=== PATIENT | male | born 1940 | race Caucasian/White ===

== ENCOUNTER 2018-10-14 10:57 | Inpatient (IN) | payer MEDICARE, MEDICAID ==
[~2018-10-14] VITALS: Ht 172.7 cm; Wt 57.7 kg
[2018-10-14] MEDS ORDERED: HYDR-4075 GT (11:27)
[2018-10-14] MEDS ORDERED: DOCU-141 GT (11:27)
[2018-10-14] MEDS ORDERED: TRAM50TA2 GT (11:27)
[2018-10-14] MEDS ORDERED: ATOR10TA GT (11:27)
[2018-10-14] MEDS ORDERED: PANT40TA4 GT (11:27)
[2018-10-14] MEDS ORDERED: FERR325T28 GT (11:27)
[2018-10-14] MEDS ORDERED: ALBU2.5V38 IH (11:27)
[2018-10-14] MEDS ORDERED: ASCO500T10 GT (11:27)
[2018-10-14] MEDS ORDERED: COLL30OI TOP (11:27)
[2018-10-14] MEDS ORDERED: IPRA0.2S48 IH (11:27)
[2018-10-14] MEDS ORDERED: METO-356 GT (11:27)
[2018-10-14] MEDS ORDERED: AMIO200T4 GT (11:27)
[2018-10-14] MEDS ORDERED: ZINC220C8 GT (11:27)
[2018-10-14] MEDS ORDERED: SIME80TA15 GT (11:27)
[2018-10-14] MEDS ORDERED: TAMS-3 GT (11:27)
[2018-10-14] MEDS ORDERED: BISA10SU8 RC (11:27)
[2018-10-14] MEDS ORDERED: PROT946L GT (11:27)
[2018-10-14] MEDS ORDERED: ACET-2154 GT (11:27)
[2018-10-14] MEDS ORDERED: ONDA4TAB5 GT (11:27)
[2018-10-14] MEDS ORDERED: SILVADENE CREAM 1% TOP (11:27)
[2018-10-14] MEDS ORDERED: DICL100G16 TP (11:27)
[2018-10-14] MEDS ORDERED: MULT-213 GT (11:27)
[2018-10-14] MEDS ORDERED: FURO20TA4 PO (11:27)
[2018-10-14] MEDS ORDERED: FINA5TAB3 GT (11:27)
[2018-10-14] MEDS ORDERED: LINA5TAB GT (11:27)
[2018-10-14 11:42] LABS: BASOPHILS # (AUTO) 0.1 K/uL (0.0-8.0); EOSINOPHILS # (AUTO) 0.7 K/uL (0.0-0.7); EOSINOPHILS % (AUTO) 6.4 % (0.0-7.0); HEMATOCRIT 24.9 % (36.7-47.1); HEMOGLOBIN 8.2 g/dL (12.5-16.3); LYMPHOCYTES # (AUTO) 1.6 K/uL (20.0-40.0); LYMPHOCYTES % (AUTO) 13.8 % (20.5-51.5); MEAN CORPUSCULAR HEMOGLOBIN 27.3 uug (23.8-33.4); MEAN CORPUSCULAR HGB CONC 33 g/dL (32.5-36.3); MEAN CORPUSCULAR VOLUME 82.6 fL (73.0-96.2); MONOCYTES # (AUTO) 1.2 K/uL (2.0-10.0); MONOCYTES % (AUTO) 10.2 % (0.0-11.0); NEUTROPHILS # (AUTO) 7.8 K/uL (1.8-8.9); NEUTROPHILS % (AUTO) 68.6 % (38.5-71.5); PLATELET COUNT (AUTO) 505 K/uL (152-348); RED BLOOD CELL COUNT(AUTO) 3.01 MIL/uL (4.06-5.63); WHITE BLOOD COUNT (AUTO) 11.4 K/uL (3.6-10.2)
[2018-10-14 11:52] LABS: CARBON DIOXIDE 32 mmol/L (21-32); CHLORIDE 92 mmol/L (98-107); CREATININE 1.2 mg/dL (0.6-1.3); GLUCOSE 135 mg/dL (74-106); POTASSIUM 4.2 mmol/L (3.5-5.1); UREA NITROGEN, BLOOD 47 mg/dL (7-18)
[2018-10-14 11:59] LABS: *BILIRUBIN,URIN NEGATIVE (NEGATIVE); *BLOOD, URINE 2+ (NEGATIVE); *CLARITY,URINE CLEAR (CLEAR); *COLOR,URINE YELLOW (YELLOW); *KETONES,URINE NEGATIVE (NEGATIVE); *UROBILINOGEN,URINE 0.2 E.U./dl (NORMAL); LEUKOCYTE ESTERASE ,URINE 1+ (NEGATIVE); NITRITE, URINE NEGATIVE (NEGATIVE); PH,URINE 6.5 (5.0-8.0); UGLUCOSE NEGATIVE (NEGATIVE)
[2018-10-14 12:05] LABS: ALANINE AMINOTRANSFERASE 27 U/L (16-63); ALKALINE PHOSPHATASE 133 U/L (50-136); ASPARTATE AMINOTRANSFERASE 34 U/L (15-37); BILIRUBIN,DIRECT 0.2 mg/dL (0.0-0.2); BILIRUBIN,TOTAL 0.3 mg/dL (0.2-1.0); TOTAL PROTEIN, SERUM 8.5 g/dL (6.4-8.2)
[2018-10-14 12:11] LABS: RBC,URINE 20-50 /HPF (0-3)
[2018-10-14 12:12] LABS: BACTERIA,URINE MOD /HPF (NONE SEEN)
[2018-10-14] MEDS ORDERED: PIPERACILLIN SODIUM/TAZOBACTAM 3.375 G in IV DEXTROSE 5% 50 ML IV ONE (12:15)
[2018-10-14] MEDS ORDERED: PIPERACILLIN/TAZOBACTAM/D5W 50 ML IV ONE (12:21)
[2018-10-14] MEDS ORDERED: Z GUARD REMEDY PASTE 57 GM TUBE TOP PRN (13:15)
[2018-10-14] MEDS ORDERED: MAGNESIUM HYDROXIDE 30 ML LIQUID UDC PO PRN (13:15)
[2018-10-14 14:27] LABS: MAGNESIUM 1.7 mg/dL (1.8-2.4); PHOSPHOROUS 4.2 mg/dL (2.5-4.9)
[2018-10-14 15:28] VITALS: BP 97/55
[2018-10-14] MEDS: ONDANSETRON 4 MG/2 ML VIAL IV PRN (17:30)
[2018-10-14 19:21] VITALS: BP 83/45
[2018-10-14] MEDS ORDERED: VANCOMYCIN IV 1 G in PREMIXED 0 EACH IV ONE (19:30)
[2018-10-14 20:00] VITALS: BP 83/45
[2018-10-14] MEDS ORDERED: IV NORMAL SALINE 250 ML IV ONE (20:00)
[2018-10-14] MEDS: IV NS 1000 ML 1,000 ML IV PRN (20:27)
[2018-10-14 21:00] VITALS: BP 97/50
[2018-10-14] MEDS ORDERED: CEFTRIAXONE 2 G in IV DEXTROSE 5% 100 ML IV SCH (21:00)
[2018-10-14 23:25] VITALS: BP 90/45
[2018-10-15] VITALS (8 sets, daily range): BP systolic 90–110; BP diastolic 45–59
[2018-10-15] MEDS ORDERED: Z GUARD REMEDY PASTE 57 GM TUBE TOP PRN (02:30)
[2018-10-15] MEDS ORDERED: DEXTROSE 50% 50 ML DISP.SYRIN IV PRN (03:00)
[2018-10-15] MEDS: BLOOD SUGAR DIAGNOSTIC 1 EACH STRIP VI SCH ×3 (06:23→17:22)
[2018-10-15] MEDS: INSULIN REGULAR, HUMAN 300 UNIT/3 ML VIAL SQ PRN (06:25)
[2018-10-15 06:34] LABS: BASOPHILS # (AUTO) 0.1 K/uL (0.0-8.0); BASOPHILS % (AUTO) 0.6 % (0.0-2.0); EOSINOPHILS # (AUTO) 0.4 K/uL (0.0-0.7); EOSINOPHILS % (AUTO) 1.8 % (0.0-7.0); HEMOGLOBIN 9.1 g/dL (12.5-16.3); LYMPHOCYTES # (AUTO) 0.5 K/uL (20.0-40.0); LYMPHOCYTES % (AUTO) 2.6 % (20.5-51.5); MEAN CORPUSCULAR HEMOGLOBIN 27.1 uug (23.8-33.4); MEAN CORPUSCULAR HGB CONC 33 g/dL (32.5-36.3); MEAN CORPUSCULAR VOLUME 83.4 fL (73.0-96.2); MONOCYTES # (AUTO) 0.9 K/uL (2.0-10.0); MONOCYTES % (AUTO) 4.6 % (0.0-11.0); NEUTROPHILS # (AUTO) 18.2 K/uL (1.8-8.9); NEUTROPHILS % (AUTO) 90.4 % (38.5-71.5); PLATELET COUNT (AUTO) 472 K/uL (152-348); RED BLOOD CELL COUNT(AUTO) 3.36 MIL/uL (4.06-5.63); WHITE BLOOD COUNT (AUTO) 20.1 K/uL (3.6-10.2)
[2018-10-15 07:25] LABS: CARBON DIOXIDE 29 mmol/L (21-32); CHLORIDE 95 mmol/L (98-107); CHOLESTEROL 81 mg/dL (<200); CREATININE 1.5 mg/dL (0.6-1.3); GLUCOSE 135 mg/dL (74-106); HDL CHOLESTEROL 32 mg/dL (40-60); MAGNESIUM 1.9 mg/dL (1.8-2.4); POTASSIUM 4.4 mmol/L (3.5-5.1); TRIGLYCERIDES 42 MG/DL (30-150); UREA NITROGEN, BLOOD 52 mg/dL (7-18)
[2018-10-15] MEDS: PANTOPRAZOLE SODIUM 40 MG VIAL IV SCH (08:20)
[2018-10-15] MEDS: Z GUARD REMEDY PASTE 57 GM TUBE TOP SCH ×2 (08:31→20:13)
[2018-10-15 09:45] LABS: BAND % (MANUAL) 9 % (0-10); LYMPHOCYTES % (MANUAL) 3 % (20-40); NEUTROPHILS % (MANUAL) 76 % (42-75)
[2018-10-15 09:46] LABS: EOSINOPHILS % (MANUAL) 1 % (0-8); METAMYELOCYTES % 2 % (0-1); MONOCYTES % (MANUAL) 9 % (2-10)
[2018-10-15] MEDS: ACETAMINOPHEN 325 MG TABLET PO PRN ×2 (11:31→19:35)
[2018-10-15] MEDS: PIPERACILLIN/TAZOBACTAM/D5W 3.375 G in PREMIXED 1 EACH IV SCH ×2 (13:30→22:39)
[2018-10-15] MEDS: IV NS 1000 ML 1,000 ML IV PRN (13:31)
[2018-10-15] MEDS ORDERED: VANCOMYCIN IV 750 MG in IV DEXTROSE 5% 250 ML IV ONE ×4 (17:00)
[2018-10-15] MEDS: NYSTATIN SUSPENSION 5 ML LIQUID UDC PO SCH ×2 (17:16→20:13)
[2018-10-15] MEDS: SODIUM HYPOCHLORITE 0.125% 473 ML BOTTLE TP SCH (17:17)
[2018-10-15] MEDS ORDERED: VANCOMYCIN IV 750 MG in IV DEXTROSE 5% 250 ML IV SCH (19:00)
[2018-10-16] MEDS: BLOOD SUGAR DIAGNOSTIC 1 EACH STRIP VI SCH ×5 (00:12→23:24)
[2018-10-16 03:26] VITALS: BP 107/50
[2018-10-16] MEDS: ACETAMINOPHEN 325 MG TABLET PO PRN ×2 (03:38→09:18)
[2018-10-16] MEDS: PIPERACILLIN/TAZOBACTAM/D5W 3.375 G in PREMIXED 1 EACH IV SCH ×3 (05:35→21:20)
[2018-10-16] MEDS: IV NS 1000 ML 1,000 ML IV PRN ×2 (06:25→23:49)
[2018-10-16 08:00] VITALS: BP 96/52
[2018-10-16] MEDS: NYSTATIN SUSPENSION 5 ML LIQUID UDC PO SCH ×4 (08:22→20:47)
[2018-10-16] MEDS: PANTOPRAZOLE SODIUM 40 MG VIAL IV SCH (08:22)
[2018-10-16] MEDS: Z GUARD REMEDY PASTE 57 GM TUBE TOP SCH ×2 (08:23→20:47)
[2018-10-16] MEDS: SODIUM HYPOCHLORITE 0.125% 473 ML BOTTLE TP SCH (08:23)
[2018-10-16 10:32] LABS: BASOPHILS # (AUTO) 0.1 K/uL (0.0-8.0); BASOPHILS % (AUTO) 0.4 % (0.0-2.0); EOSINOPHILS # (AUTO) 1.7 K/uL (0.0-0.7); EOSINOPHILS % (AUTO) 13.8 % (0.0-7.0); HEMATOCRIT 24.1 % (36.7-47.1); LYMPHOCYTES # (AUTO) 0.4 K/uL (20.0-40.0); LYMPHOCYTES % (AUTO) 3.6 % (20.5-51.5); MEAN CORPUSCULAR HEMOGLOBIN 27.8 uug (23.8-33.4); MEAN CORPUSCULAR HGB CONC 33 g/dL (32.5-36.3); MEAN CORPUSCULAR VOLUME 83.3 fL (73.0-96.2); MONOCYTES # (AUTO) 0.5 K/uL (2.0-10.0); MONOCYTES % (AUTO) 3.9 % (0.0-11.0); NEUTROPHILS # (AUTO) 9.6 K/uL (1.8-8.9); NEUTROPHILS % (AUTO) 78.3 % (38.5-71.5); PLATELET COUNT (AUTO) 360 K/uL (152-348); RED BLOOD CELL COUNT(AUTO) 2.89 MIL/uL (4.06-5.63); WHITE BLOOD COUNT (AUTO) 12.2 K/uL (3.6-10.2)
[2018-10-16 10:49] LABS: ALANINE AMINOTRANSFERASE 22 U/L (16-63); ALKALINE PHOSPHATASE 111 U/L (50-136); ASPARTATE AMINOTRANSFERASE 36 U/L (15-37); BILIRUBIN,TOTAL 0.4 mg/dL (0.2-1.0); CARBON DIOXIDE 27 mmol/L (21-32); CHLORIDE 100 mmol/L (98-107); CREATININE 1.2 mg/dL (0.6-1.3); GLUCOSE 62 mg/dL (74-106); MAGNESIUM 1.7 mg/dL (1.8-2.4); PHOSPHOROUS 3.5 mg/dL (2.5-4.9); POTASSIUM 3.4 mmol/L (3.5-5.1); TOTAL PROTEIN, SERUM 7.2 g/dL (6.4-8.2); UREA NITROGEN, BLOOD 38 mg/dL (7-18)
[2018-10-16 11:20] VITALS: BP 91/45
[2018-10-16 11:43] LABS: *BILIRUBIN,URIN NEGATIVE (NEGATIVE); *BLOOD, URINE 2+ (NEGATIVE); *CLARITY,URINE CLEAR (CLEAR); *COLOR,URINE YELLOW (YELLOW); *KETONES,URINE TRACE (NEGATIVE); *UROBILINOGEN,URINE 0.2 E.U./dl (NORMAL); LEUKOCYTE ESTERASE ,URINE 1+ (NEGATIVE); NITRITE, URINE POSITIVE (NEGATIVE); UGLUCOSE NEGATIVE (NEGATIVE)
[2018-10-16 11:50] LABS: BACTERIA,URINE MODERATE /HPF (NONE SEEN); SQUAMOUS EPITHELIAL CELL,UR FEW /HPF (NONE SEEN); WBC,URINE 20-50 /HPF (0-3)
[2018-10-16 11:51] LABS: *URINE TOTAL PROTEIN RANDOM 38.7 mg/dL (<150/24HR)
[2018-10-16] MEDS ORDERED: BISACODYL 10 MG SUPP.RECT RC PRN (15:00)
[2018-10-16] MEDS: MAGNESIUM SULFATE/D5W 100 ML IV SCH ×2 (15:11→16:15)
[2018-10-16] MEDS: POTASSIUM CHLORIDE 50 ML IV SCH ×4 (15:11→18:25)
[2018-10-16 15:19] VITALS: BP 92/50
[2018-10-16] MEDS: TRAMADOL HCL 50 MG TABLET GT PRN ×2 (15:29→21:50)
[2018-10-16] MEDS: SIMETHICONE 80 MG TAB.CHEW GT SCH ×2 (17:42→20:47)
[2018-10-16 19:00] VITALS: BP 93/50
[2018-10-16] MEDS: ATORVASTATIN 10 MG TABLET GT SCH (20:47)
[2018-10-16] MEDS ORDERED: COLLAGENASE OINT 30 GM TUBE TOP SCH (21:00)
[2018-10-16] MEDS: IPRATROPIUM BROMIDE 0.5 MG/2.5 ML NEBU IH SCH (22:44)
[2018-10-16] MEDS: ALBUTEROL SULFATE 2.5 MG/3 ML NEBU IH SCH (22:44)
[2018-10-17] VITALS: BP 89/44
[2018-10-17 00:30] VITALS: BP 106/57
[2018-10-17 04:00] VITALS: BP 89/47
[2018-10-17] MEDS: PIPERACILLIN/TAZOBACTAM/D5W 3.375 G in PREMIXED 1 EACH IV SCH ×3 (05:23→21:12)
[2018-10-17] MEDS: BLOOD SUGAR DIAGNOSTIC 1 EACH STRIP VI SCH ×3 (05:27→18:37)
[2018-10-17] MEDS: INSULIN REGULAR, HUMAN 300 UNIT/3 ML VIAL SQ PRN (05:28)
[2018-10-17 06:26] LABS: ALANINE AMINOTRANSFERASE 19 U/L (16-63); ALKALINE PHOSPHATASE 103 U/L (50-136); ASPARTATE AMINOTRANSFERASE 28 U/L (15-37); BILIRUBIN,TOTAL 0.3 mg/dL (0.2-1.0); CARBON DIOXIDE 27 mmol/L (21-32); CHLORIDE 104 mmol/L (98-107); CREATINE KINASE, TOTAL 28 U/L (39-308); CREATININE 1.1 mg/dL (0.6-1.3); GLUCOSE 132 mg/dL (74-106); MAGNESIUM 1.9 mg/dL (1.8-2.4); PHOSPHOROUS 2.5 mg/dL (2.5-4.9); TOTAL PROTEIN, SERUM 6.6 g/dL (6.4-8.2); UREA NITROGEN, BLOOD 31 mg/dL (7-18)
[2018-10-17 06:55] LABS: BASOPHILS % (AUTO) 0.4 % (0.0-2.0); EOSINOPHILS % (AUTO) 23.1 % (0.0-7.0); HEMATOCRIT 23.5 % (36.7-47.1); HEMOGLOBIN 7.9 g/dL (12.5-16.3); LYMPHOCYTES # (AUTO) 0.6 K/uL (20.0-40.0); LYMPHOCYTES % (AUTO) 6.3 % (20.5-51.5); MEAN CORPUSCULAR HEMOGLOBIN 28.6 uug (23.8-33.4); MEAN CORPUSCULAR HGB CONC 34 g/dL (32.5-36.3); MEAN CORPUSCULAR VOLUME 84.6 fL (73.0-96.2); MONOCYTES # (AUTO) 0.4 K/uL (2.0-10.0); MONOCYTES % (AUTO) 4.5 % (0.0-11.0); NEUTROPHILS # (AUTO) 5.7 K/uL (1.8-8.9); NEUTROPHILS % (AUTO) 65.7 % (38.5-71.5); PLATELET COUNT (AUTO) 345 K/uL (152-348); RED BLOOD CELL COUNT(AUTO) 2.77 MIL/uL (4.06-5.63)
[2018-10-17 06:56] LABS: WHITE BLOOD COUNT (AUTO) 8.7 K/uL (3.6-10.2)
[2018-10-17] MEDS: ALBUTEROL SULFATE 2.5 MG/3 ML NEBU IH SCH ×3 (08:14→23:41)
[2018-10-17] MEDS: IPRATROPIUM BROMIDE 0.5 MG/2.5 ML NEBU IH SCH ×3 (08:15→23:41)
[2018-10-17] MEDS ORDERED: Medication Not On Formulary EA (Multivitamins W-Minerals (Multivitamin With Minerals) 1 GT SCH (09:00)
[2018-10-17] MEDS ORDERED: Medication Not On Formulary EA (Protein Supplement (Promod) 30 ML) GT SCH (09:00)
[2018-10-17 09:07] LABS: BAND % (MANUAL) 2 % (0-10); BASOPHILS % (MANUAL) 1 % (0-2); EOSINOPHILS % (MANUAL) 24 % (0-8); LYMPHOCYTES % (MANUAL) 4 % (20-40); NEUTROPHILS % (MANUAL) 69 % (42-75)
[2018-10-17] MEDS: NYSTATIN SUSPENSION 5 ML LIQUID UDC PO SCH ×4 (09:20→21:12)
[2018-10-17] MEDS: PANTOPRAZOLE SODIUM 40 MG VIAL IV SCH (09:20)
[2018-10-17] MEDS: PROTEIN SUPPLEMENT (PROSTAT) 30 ML LIQUID PO SCH (09:20)
[2018-10-17] MEDS: ZINC SULFATE 220 MG CAPSULE GT SCH (09:21)
[2018-10-17] MEDS: TRAMADOL HCL 50 MG TABLET GT PRN ×2 (09:21→15:38)
[2018-10-17] MEDS: ASCORBIC ACID 500 MG TABLET GT SCH (09:22)
[2018-10-17] MEDS: MULTIVIT, IRON, MIN NO. 8, FA TABLET PO SCH (09:22)
[2018-10-17] MEDS: SIMETHICONE 80 MG TAB.CHEW GT SCH ×4 (09:22→21:13)
[2018-10-17] MEDS: FINASTERIDE 5 MG TABLET GT SCH (09:24)
[2018-10-17] MEDS: AMIODARONE HCL 200 MG TABLET GT SCH (09:24)
[2018-10-17] MEDS: SODIUM HYPOCHLORITE 0.125% 473 ML BOTTLE TP SCH (09:28)
[2018-10-17] MEDS: Z GUARD REMEDY PASTE 57 GM TUBE TOP SCH ×2 (09:28→21:19)
[2018-10-17] MEDS: ONDANSETRON 4 MG/2 ML VIAL IV PRN (09:43)
[2018-10-17] MEDS: GLUCERNA 1.2 1000ML LIQUID GT PRN (09:50)
[2018-10-17] MEDS: ACETAMINOPHEN 650 MG SUPP.RECT RC PRN ×2 (10:51→17:36)
[2018-10-17 11:21] VITALS: BP 97/48
[2018-10-17] MEDS: IV NS 1000 ML 1,000 ML IV PRN (13:29)
[2018-10-17 15:21] VITALS: BP 94/42
[2018-10-17 19:00] VITALS: BP 102/55
[2018-10-17] MEDS: ATORVASTATIN 10 MG TABLET GT SCH (21:12)
[2018-10-18] MEDS: BLOOD SUGAR DIAGNOSTIC 1 EACH STRIP VI SCH ×4 (00:09→18:39)
[2018-10-18] MEDS: ACETAMINOPHEN 325 MG TABLET PO PRN (01:31)
[2018-10-18] MEDS: IV NS 1000 ML 1,000 ML IV PRN (03:38)
[2018-10-18 04:00] VITALS: BP 101/57
[2018-10-18] MEDS: PIPERACILLIN/TAZOBACTAM/D5W 3.375 G in PREMIXED 1 EACH IV SCH ×3 (05:21→22:07)
[2018-10-18 06:34] LABS: BASOPHILS % (AUTO) 0.5 % (0.0-2.0); HEMATOCRIT 23.7 % (36.7-47.1); LYMPHOCYTES # (AUTO) 0.7 K/uL (20.0-40.0); LYMPHOCYTES % (AUTO) 10.6 % (20.5-51.5); MEAN CORPUSCULAR HEMOGLOBIN 28.4 uug (23.8-33.4); MEAN CORPUSCULAR HGB CONC 34 g/dL (32.5-36.3); MEAN CORPUSCULAR VOLUME 84.3 fL (73.0-96.2); MONOCYTES # (AUTO) 0.5 K/uL (2.0-10.0); MONOCYTES % (AUTO) 7.8 % (0.0-11.0); NEUTROPHILS # (AUTO) 3.7 K/uL (1.8-8.9); PLATELET COUNT (AUTO) 342 K/uL (152-348); RED BLOOD CELL COUNT(AUTO) 2.81 MIL/uL (4.06-5.63)
[2018-10-18 06:38] LABS: EOSINOPHILS % (AUTO) 28.1 % (0.0-7.0)
[2018-10-18 06:52] LABS: CARBON DIOXIDE 28 mmol/L (21-32); CHLORIDE 106 mmol/L (98-107); CREATININE 0.9 mg/dL (0.6-1.3); GLUCOSE 124 mg/dL (74-106); MAGNESIUM 1.6 mg/dL (1.8-2.4); PHOSPHOROUS 2.5 mg/dL (2.5-4.9); POTASSIUM 4.2 mmol/L (3.5-5.1); UREA NITROGEN, BLOOD 25 mg/dL (7-18)
[2018-10-18] MEDS: IPRATROPIUM BROMIDE 0.5 MG/2.5 ML NEBU IH SCH ×3 (07:07→23:06)
[2018-10-18] MEDS: ALBUTEROL SULFATE 2.5 MG/3 ML NEBU IH SCH ×3 (07:07→23:06)
[2018-10-18 07:17] LABS: BAND % (MANUAL) 3 % (0-10); EOSINOPHILS % (MANUAL) 34 % (0-8); LYMPHOCYTES % (MANUAL) 9 % (20-40); MONOCYTES % (MANUAL) 6 % (2-10); NEUTROPHILS % (MANUAL) 48 % (42-75)
[2018-10-18] MEDS: SIMETHICONE 80 MG TAB.CHEW GT SCH ×4 (08:00→20:38)
[2018-10-18] MEDS: MULTIVIT, IRON, MIN NO. 8, FA TABLET PO SCH (08:00)
[2018-10-18] MEDS: ASCORBIC ACID 500 MG TABLET GT SCH (08:00)
[2018-10-18] MEDS: PROTEIN SUPPLEMENT (PROSTAT) 30 ML LIQUID PO SCH (08:00)
[2018-10-18] MEDS: FINASTERIDE 5 MG TABLET GT SCH (08:00)
[2018-10-18] MEDS: ZINC SULFATE 220 MG CAPSULE GT SCH (08:00)
[2018-10-18] MEDS: AMIODARONE HCL 200 MG TABLET GT SCH (08:02)
[2018-10-18] MEDS: NYSTATIN SUSPENSION 5 ML LIQUID UDC PO SCH ×5 (08:02→20:43)
[2018-10-18] MEDS: SODIUM HYPOCHLORITE 0.125% 473 ML BOTTLE TP SCH (08:03)
[2018-10-18] MEDS: Z GUARD REMEDY PASTE 57 GM TUBE TOP SCH ×2 (08:03→20:38)
[2018-10-18 08:15] LABS: A/G RATIO 0.4 (0.7-1.7); ALBUMIN 1.8 g/dL (2.9-4.4); ALPHA-1-GLOBULIN 0.3 g/dL (0.0-0.4); ALPHA-2-GLOBULIN 0.7 g/dL (0.4-1.0); BETA GLOBULIN 1.1 g/dL (0.7-1.3); GAMMA GLOBULIN 2.1 g/dL (0.4-1.8); GLOBULIN, TOTAL 4.2 g/dL (2.2-3.9); M-SPIKE Not Observed g/dL (Not Observed)
[2018-10-18] MEDS: PANTOPRAZOLE ORAL SUSPENSION 40 MG SUSPDR.PKT GT SCH (09:57)
[2018-10-18] MEDS: GLUCERNA 1.2 1000ML LIQUID GT PRN (11:07)
[2018-10-18 11:27] VITALS: BP 126/76
[2018-10-18] MEDS: MAGNESIUM SULFATE/D5W 100 ML IV SCH ×2 (12:28→13:44)
[2018-10-18] MEDS ORDERED: GLUCERNA 1.2 1000ML LIQUID GT PRN (12:57)
[2018-10-18 15:32] VITALS: BP 123/69
[2018-10-18] MEDS: FERROUS SULFATE 300 MG/5 ML LIQUID UDC GT SCH (17:32)
[2018-10-18 19:25] VITALS: BP 125/73
[2018-10-18] MEDS: TRAMADOL HCL 50 MG TABLET GT PRN (20:37)
[2018-10-18] MEDS: ATORVASTATIN 10 MG TABLET GT SCH (20:37)
[2018-10-18] MEDS: TAMSULOSIN HCL 0.4 MG CAP.SR.24H XX SCH (20:37)
[2018-10-18] MEDS: METOPROLOL TARTRATE 25 MG TABLET GT SCH (20:38)
[2018-10-18] MEDS: DOCUSATE SODIUM 100 MG/10 ML LIQUID UDC GT SCH (20:43)
[2018-10-19] MEDS: BLOOD SUGAR DIAGNOSTIC 1 EACH STRIP VI SCH ×4 (01:03→17:54)
[2018-10-19 03:27] VITALS: BP 106/55
[2018-10-19] MEDS: PIPERACILLIN/TAZOBACTAM/D5W 3.375 G in PREMIXED 1 EACH IV SCH ×3 (06:14→21:08)
[2018-10-19 06:32] LABS: CARBON DIOXIDE 28 mmol/L (21-32); CHLORIDE 103 mmol/L (98-107); CREATININE 0.8 mg/dL (0.6-1.3); GLUCOSE 119 mg/dL (74-106); MAGNESIUM 1.7 mg/dL (1.8-2.4); POTASSIUM 4.1 mmol/L (3.5-5.1); UREA NITROGEN, BLOOD 19 mg/dL (7-18)
[2018-10-19] MEDS: IPRATROPIUM BROMIDE 0.5 MG/2.5 ML NEBU IH SCH ×3 (07:38→23:25)
[2018-10-19] MEDS: ALBUTEROL SULFATE 2.5 MG/3 ML NEBU IH SCH ×3 (07:38→23:25)
[2018-10-19] MEDS: DOCUSATE SODIUM 100 MG/10 ML LIQUID UDC GT SCH ×2 (09:00→21:00)
[2018-10-19] MEDS: FINASTERIDE 5 MG TABLET GT SCH (09:25)
[2018-10-19] MEDS: ASCORBIC ACID 500 MG TABLET GT SCH (09:25)
[2018-10-19] MEDS: MULTIVIT, IRON, MIN NO. 8, FA TABLET PO SCH (09:25)
[2018-10-19] MEDS: ZINC SULFATE 220 MG CAPSULE GT SCH (09:25)
[2018-10-19] MEDS: FERROUS SULFATE 300 MG/5 ML LIQUID UDC GT SCH ×2 (09:26→16:20)
[2018-10-19] MEDS: PANTOPRAZOLE ORAL SUSPENSION 40 MG SUSPDR.PKT GT SCH (09:26)
[2018-10-19] MEDS: SIMETHICONE 80 MG TAB.CHEW GT SCH ×4 (09:26→21:04)
[2018-10-19] MEDS: TRAMADOL HCL 50 MG TABLET GT PRN ×3 (09:26→21:59)
[2018-10-19] MEDS: AMIODARONE HCL 200 MG TABLET GT SCH (09:27)
[2018-10-19] MEDS: METOPROLOL TARTRATE 25 MG TABLET GT SCH ×2 (09:28→21:05)
[2018-10-19] MEDS: NYSTATIN SUSPENSION 5 ML LIQUID UDC PO SCH ×2 (09:28→13:42)
[2018-10-19] MEDS: Z GUARD REMEDY PASTE 57 GM TUBE TOP SCH ×2 (09:29→21:06)
[2018-10-19] MEDS: PROTEIN SUPPLEMENT (PROSTAT) 30 ML LIQUID PO SCH (10:08)
[2018-10-19] MEDS: ONDANSETRON 4 MG/2 ML VIAL IV PRN (10:18)
[2018-10-19 11:49] VITALS: BP 122/68
[2018-10-19] MEDS: SODIUM HYPOCHLORITE 0.125% 473 ML BOTTLE TP SCH (12:00)
[2018-10-19] MEDS: MAGNESIUM SULFATE/D5W 100 ML IV SCH ×2 (12:12→12:46)
[2018-10-19 15:44] VITALS: BP 135/70
[2018-10-19 19:24] VITALS: BP 129/79
[2018-10-19] MEDS: TAMSULOSIN HCL 0.4 MG CAP.SR.24H XX SCH (21:05)
[2018-10-19] MEDS: ATORVASTATIN 10 MG TABLET GT SCH (21:05)
[2018-10-20] MEDS: BLOOD SUGAR DIAGNOSTIC 1 EACH STRIP VI SCH ×4 (00:36→17:31)
[2018-10-20 03:41] VITALS: BP 112/58
[2018-10-20] MEDS: PIPERACILLIN/TAZOBACTAM/D5W 3.375 G in PREMIXED 1 EACH IV SCH ×3 (06:37→22:19)
[2018-10-20 06:50] LABS: CARBON DIOXIDE 27 mmol/L (21-32); CHLORIDE 98 mmol/L (98-107); CREATININE 0.8 mg/dL (0.6-1.3); GLUCOSE 110 mg/dL (74-106); MAGNESIUM 1.9 mg/dL (1.8-2.4); PHOSPHOROUS 3.1 mg/dL (2.5-4.9); POTASSIUM 4.2 mmol/L (3.5-5.1); UREA NITROGEN, BLOOD 17 mg/dL (7-18)
[2018-10-20] MEDS: ALBUTEROL SULFATE 2.5 MG/3 ML NEBU IH SCH ×3 (07:46→23:04)
[2018-10-20] MEDS: IPRATROPIUM BROMIDE 0.5 MG/2.5 ML NEBU IH SCH ×3 (07:46→23:04)
[2018-10-20] MEDS: ASCORBIC ACID 500 MG TABLET GT SCH (08:16)
[2018-10-20] MEDS: FINASTERIDE 5 MG TABLET GT SCH (08:16)
[2018-10-20] MEDS: PANTOPRAZOLE ORAL SUSPENSION 40 MG SUSPDR.PKT GT SCH (08:16)
[2018-10-20] MEDS: SIMETHICONE 80 MG TAB.CHEW GT SCH ×4 (08:16→21:20)
[2018-10-20] MEDS: FERROUS SULFATE 300 MG/5 ML LIQUID UDC GT SCH ×2 (08:16→16:46)
[2018-10-20] MEDS: MULTIVIT, IRON, MIN NO. 8, FA TABLET PO SCH (08:16)
[2018-10-20] MEDS: ZINC SULFATE 220 MG CAPSULE GT SCH (08:16)
[2018-10-20] MEDS: DOCUSATE SODIUM 100 MG/10 ML LIQUID UDC GT SCH ×2 (08:26→21:00)
[2018-10-20] MEDS: PROTEIN SUPPLEMENT (PROSTAT) 30 ML LIQUID PO SCH (08:26)
[2018-10-20] MEDS: METOPROLOL TARTRATE 25 MG TABLET GT SCH ×2 (08:27→21:33)
[2018-10-20] MEDS: Z GUARD REMEDY PASTE 57 GM TUBE TOP SCH ×2 (08:27→22:13)
[2018-10-20] MEDS: SODIUM HYPOCHLORITE 0.125% 473 ML BOTTLE TP SCH (08:28)
[2018-10-20] MEDS: AMIODARONE HCL 200 MG TABLET GT SCH (08:31)
[2018-10-20 09:17] LABS: BASOPHILS # (AUTO) 0.1 K/uL (0.0-8.0); EOSINOPHILS # (AUTO) 1.7 K/uL (0.0-0.7); EOSINOPHILS % (AUTO) 20.1 % (0.0-7.0); HEMATOCRIT 24.8 % (36.7-47.1); HEMOGLOBIN 8.3 g/dL (12.5-16.3); LYMPHOCYTES # (AUTO) 1.3 K/uL (20.0-40.0); LYMPHOCYTES % (AUTO) 16.4 % (20.5-51.5); MEAN CORPUSCULAR HGB CONC 34 g/dL (32.5-36.3); MEAN CORPUSCULAR VOLUME 83.7 fL (73.0-96.2); MONOCYTES # (AUTO) 0.6 K/uL (2.0-10.0); MONOCYTES % (AUTO) 7.7 % (0.0-11.0); NEUTROPHILS # (AUTO) 4.5 K/uL (1.8-8.9); NEUTROPHILS % (AUTO) 54.8 % (38.5-71.5); PLATELET COUNT (AUTO) 349 K/uL (152-348); RED BLOOD CELL COUNT(AUTO) 2.96 MIL/uL (4.06-5.63); WHITE BLOOD COUNT (AUTO) 8.2 K/uL (3.6-10.2)
[2018-10-20 11:08] VITALS: BP 106/54
[2018-10-20] MEDS ORDERED: NUT.237L30 GT (13:50)
[2018-10-20] MEDS ORDERED: METO25TA6 GT (13:50)
[2018-10-20] MEDS ORDERED: Multivit, Iron, Min No. 8, Fa PO (13:50)
[2018-10-20] MEDS ORDERED: PROT30LI PO (13:50)
[2018-10-20] MEDS ORDERED: SODI473S8 TP (13:50)
[2018-10-20] MEDS: TRAMADOL HCL 50 MG TABLET GT PRN ×2 (13:52→22:20)
[2018-10-20 15:09] VITALS: BP 113/62
[2018-10-20] MEDS: GLUCERNA 1.2 1000ML LIQUID GT PRN (17:32)
[2018-10-20 19:23] VITALS: BP 122/63
[2018-10-20] MEDS: TAMSULOSIN HCL 0.4 MG CAP.SR.24H XX SCH (21:20)
[2018-10-20] MEDS: ATORVASTATIN 10 MG TABLET GT SCH (21:20)
[2018-10-21] MEDS: BLOOD SUGAR DIAGNOSTIC 1 EACH STRIP VI SCH ×5 (02:53→23:58)
[2018-10-21 04:00] VITALS: BP 104/55
[2018-10-21] MEDS: PIPERACILLIN/TAZOBACTAM/D5W 3.375 G in PREMIXED 1 EACH IV SCH ×3 (05:25→22:21)
[2018-10-21] MEDS: IPRATROPIUM BROMIDE 0.5 MG/2.5 ML NEBU IH SCH ×3 (07:39→23:27)
[2018-10-21] MEDS: ALBUTEROL SULFATE 2.5 MG/3 ML NEBU IH SCH ×3 (07:39→23:27)
[2018-10-21] MEDS: METOPROLOL TARTRATE 25 MG TABLET GT SCH ×2 (09:00→21:00)
[2018-10-21] MEDS: DOCUSATE SODIUM 100 MG/10 ML LIQUID UDC GT SCH ×2 (09:12→21:00)
[2018-10-21] MEDS: SIMETHICONE 80 MG TAB.CHEW GT SCH ×4 (09:12→21:03)
[2018-10-21] MEDS: ZINC SULFATE 220 MG CAPSULE GT SCH (09:12)
[2018-10-21] MEDS: ASCORBIC ACID 500 MG TABLET GT SCH (09:12)
[2018-10-21] MEDS: PROTEIN SUPPLEMENT (PROSTAT) 30 ML LIQUID PO SCH (09:12)
[2018-10-21] MEDS: MULTIVIT, IRON, MIN NO. 8, FA TABLET PO SCH (09:12)
[2018-10-21] MEDS: PANTOPRAZOLE ORAL SUSPENSION 40 MG SUSPDR.PKT GT SCH (09:12)
[2018-10-21] MEDS: FERROUS SULFATE 300 MG/5 ML LIQUID UDC GT SCH ×2 (09:12→16:38)
[2018-10-21] MEDS: FINASTERIDE 5 MG TABLET GT SCH (09:13)
[2018-10-21] MEDS: Z GUARD REMEDY PASTE 57 GM TUBE TOP SCH ×2 (09:13→21:30)
[2018-10-21] MEDS: SODIUM HYPOCHLORITE 0.125% 473 ML BOTTLE TP SCH (09:14)
[2018-10-21] MEDS: AMIODARONE HCL 200 MG TABLET GT SCH (09:24)
[2018-10-21] MEDS: ACETAMINOPHEN 325 MG TABLET PO PRN ×2 (09:28→21:10)
[2018-10-21 11:26] VITALS: BP 99/46
[2018-10-21] MEDS: GLUCERNA 1.2 1000ML LIQUID GT PRN (12:33)
[2018-10-21 15:10] LABS: CARBON DIOXIDE 27 mmol/L (21-32); CHLORIDE 98 mmol/L (98-107); CREATININE 0.9 mg/dL (0.6-1.3); GLUCOSE 102 mg/dL (74-106); POTASSIUM 4.3 mmol/L (3.5-5.1); UREA NITROGEN, BLOOD 20 mg/dL (7-18)
[2018-10-21 15:14] LABS: BASOPHILS # (AUTO) 0.1 K/uL (0.0-8.0); BASOPHILS % (AUTO) 0.9 % (0.0-2.0); EOSINOPHILS # (AUTO) 1.5 K/uL (0.0-0.7); EOSINOPHILS % (AUTO) 18.5 % (0.0-7.0); HEMATOCRIT 22.9 % (36.7-47.1); HEMOGLOBIN 7.7 g/dL (12.5-16.3); LYMPHOCYTES # (AUTO) 1.5 K/uL (20.0-40.0); LYMPHOCYTES % (AUTO) 19.1 % (20.5-51.5); MEAN CORPUSCULAR HEMOGLOBIN 27.8 uug (23.8-33.4); MEAN CORPUSCULAR HGB CONC 33 g/dL (32.5-36.3); MEAN CORPUSCULAR VOLUME 83.1 fL (73.0-96.2); MONOCYTES # (AUTO) 0.8 K/uL (2.0-10.0); MONOCYTES % (AUTO) 9.6 % (0.0-11.0); NEUTROPHILS # (AUTO) 4.1 K/uL (1.8-8.9); NEUTROPHILS % (AUTO) 51.9 % (38.5-71.5); PLATELET COUNT (AUTO) 343 K/uL (152-348); RED BLOOD CELL COUNT(AUTO) 2.76 MIL/uL (4.06-5.63); WHITE BLOOD COUNT (AUTO) 7.9 K/uL (3.6-10.2)
[2018-10-21 15:20] VITALS: BP 94/46
[2018-10-21] MEDS: ATORVASTATIN 10 MG TABLET GT SCH (21:03)
[2018-10-21] MEDS: TRAMADOL HCL 50 MG TABLET GT PRN (21:04)
[2018-10-21] MEDS: TAMSULOSIN HCL 0.4 MG CAP.SR.24H XX SCH (21:04)
[2018-10-21 22:18] VITALS: BP 104/57
[2018-10-22 05:57] VITALS: BP 95/45
[2018-10-22] MEDS: PIPERACILLIN/TAZOBACTAM/D5W 3.375 G in PREMIXED 1 EACH IV SCH (05:57)
[2018-10-22] MEDS: BLOOD SUGAR DIAGNOSTIC 1 EACH STRIP VI SCH ×3 (05:58→18:00)
[2018-10-22 06:26] LABS: BASOPHILS # (AUTO) 0.1 K/uL (0.0-8.0); EOSINOPHILS # (AUTO) 1.4 K/uL (0.0-0.7); EOSINOPHILS % (AUTO) 17.9 % (0.0-7.0); HEMATOCRIT 22.7 % (36.7-47.1); HEMOGLOBIN 7.6 g/dL (12.5-16.3); LYMPHOCYTES # (AUTO) 1.2 K/uL (20.0-40.0); LYMPHOCYTES % (AUTO) 15.3 % (20.5-51.5); MEAN CORPUSCULAR HEMOGLOBIN 27.7 uug (23.8-33.4); MEAN CORPUSCULAR HGB CONC 33 g/dL (32.5-36.3); MEAN CORPUSCULAR VOLUME 83.3 fL (73.0-96.2); MONOCYTES # (AUTO) 0.9 K/uL (2.0-10.0); MONOCYTES % (AUTO) 10.8 % (0.0-11.0); NEUTROPHILS # (AUTO) 4.4 K/uL (1.8-8.9); PLATELET COUNT (AUTO) 344 K/uL (152-348); RED BLOOD CELL COUNT(AUTO) 2.73 MIL/uL (4.06-5.63)
[2018-10-22 06:38] LABS: CARBON DIOXIDE 28 mmol/L (21-32); CHLORIDE 100 mmol/L (98-107); GLUCOSE 117 mg/dL (74-106); MAGNESIUM 1.7 mg/dL (1.8-2.4); PHOSPHOROUS 3.8 mg/dL (2.5-4.9); POTASSIUM 4.3 mmol/L (3.5-5.1); UREA NITROGEN, BLOOD 22 mg/dL (7-18)
[2018-10-22] MEDS: ALBUTEROL SULFATE 2.5 MG/3 ML NEBU IH SCH ×2 (07:34→15:40)
[2018-10-22] MEDS: IPRATROPIUM BROMIDE 0.5 MG/2.5 ML NEBU IH SCH ×2 (07:35→15:40)
[2018-10-22] MEDS: METOPROLOL TARTRATE 25 MG TABLET GT SCH (09:00)
[2018-10-22] MEDS: DOCUSATE SODIUM 100 MG/10 ML LIQUID UDC GT SCH (09:00)
[2018-10-22] MEDS: SIMETHICONE 80 MG TAB.CHEW GT SCH ×3 (09:10→16:56)
[2018-10-22] MEDS: FINASTERIDE 5 MG TABLET GT SCH (09:10)
[2018-10-22] MEDS: PANTOPRAZOLE ORAL SUSPENSION 40 MG SUSPDR.PKT GT SCH (09:10)
[2018-10-22] MEDS: ZINC SULFATE 220 MG CAPSULE GT SCH (09:10)
[2018-10-22] MEDS: MULTIVIT, IRON, MIN NO. 8, FA TABLET PO SCH (09:10)
[2018-10-22] MEDS: NUTRISOURCE FIBER 4 GM PACKET GT SCH ×2 (09:11→16:56)
[2018-10-22] MEDS: Z GUARD REMEDY PASTE 57 GM TUBE TOP SCH (09:12)
[2018-10-22] MEDS: AMIODARONE HCL 200 MG TABLET GT SCH (09:16)
[2018-10-22] MEDS: FERROUS SULFATE 300 MG/5 ML LIQUID UDC GT SCH ×2 (09:19→16:56)
[2018-10-22] MEDS: SODIUM HYPOCHLORITE 0.125% 473 ML BOTTLE TP SCH (09:20)
[2018-10-22] MEDS: GLUCERNA 1.2 1000ML LIQUID GT PRN (10:52)
[2018-10-22 11:08] VITALS: BP 97/51
[2018-10-22 15:21] VITALS: BP 92/50
[2018-10-22] MEDS ORDERED: TEMA15CA PO (15:22)
[2018-10-22] MEDS: MAGNESIUM SULFATE/D5W 100 ML IV SCH ×2 (15:31→16:56)
[2018-10-23] MEDS ORDERED: ASCORBIC ACID 500 MG TABLET GT SCH (09:00)
[2018-10-23] MEDS ORDERED: PROTEIN SUPPLEMENT (PROSTAT) 30 ML LIQUID GT SCH (09:00)
== END 2018-10-22 18:10 | DRG 853 ==
LOC: ER 10:57 → TELE 15:00 → MED 20:58 → TELE-TD 22:26 → TELE 10-15 14:45 → MED 10-17 12:55
PROVIDERS: ADMIT Hospitalist; ATTEND Hospitalist
PROC: 0KBP0ZZ Excision of Left Hip Muscle, Open Approach (ICD-10-PCS; principal; 2018-10-15)
PROC: 0KBN0ZZ Excision of Right Hip Muscle, Open Approach (ICD-10-PCS; 2018-10-15)
PROC: 0JB90ZZ Excision of Buttock Subcutaneous Tissue and Fascia, Open Approach (ICD-10-PCS; 2018-10-15)
DX: A41.9 Sepsis, unspecified organism (principal); L89.154 Pressure ulcer of sacral region, stage 4; L89.323 Pressure ulcer of left buttock, stage 3; L89.313 Pressure ulcer of right buttock, stage 3; J18.9 Pneumonia, unspecified organism; N17.0 Acute kidney failure with tubular necrosis; G93.41 Metabolic encephalopathy; R53.2 Functional quadriplegia; E43 Unspecified severe protein-calorie malnutrition; J96.90 Respiratory failure, unspecified, unspecified whether with hypoxia or hypercapnia; N39.0 Urinary tract infection, site not specified; B37.0 Candidal stomatitis; E87.1 Hypo-osmolality and hyponatremia; I24.8 Other forms of acute ischemic heart disease; R64 Cachexia; Y95 Nosocomial condition; B96.20 Unspecified Escherichia coli [E. coli] as the cause of diseases classified elsewhere; Z16.11 Resistance to penicillins; Z16.29 Resistance to other single specified antibiotic; Z16.23 Resistance to quinolones and fluoroquinolones; E86.0 Dehydration; D47.3 Essential (hemorrhagic) thrombocythemia; R62.7 Adult failure to thrive; E03.9 Hypothyroidism, unspecified; R65.20 Severe sepsis without septic shock; Z96.641 Presence of right artificial hip joint; Z95.1 Presence of aortocoronary bypass graft; Z90.49 Acquired absence of other specified parts of digestive tract; Z90.3 Acquired absence of stomach [part of]; Z87.11 Personal history of peptic ulcer disease; Z87.440 Personal history of urinary (tract) infections; Z87.01 Personal history of pneumonia (recurrent); Z74.01 Bed confinement status; I48.0 Paroxysmal atrial fibrillation; E11.51 Type 2 diabetes mellitus with diabetic peripheral angiopathy without gangrene; L89.629 Pressure ulcer of left heel, unspecified stage; L89.619 Pressure ulcer of right heel, unspecified stage; N40.0 Benign prostatic hyperplasia without lower urinary tract symptoms; R13.10 Dysphagia, unspecified; D63.8 Anemia in other chronic diseases classified elsewhere; M17.0 Bilateral primary osteoarthritis of knee; M81.0 Age-related osteoporosis without current pathological fracture; J84.10 Pulmonary fibrosis, unspecified; R31.29 Other microscopic hematuria; I70.0 Atherosclerosis of aorta; K57.90 Diverticulosis of intestine, part unspecified, without perforation or abscess without bleeding; I25.10 Atherosclerotic heart disease of native coronary artery without angina pectoris; E78.5 Hyperlipidemia, unspecified; F31.9 Bipolar disorder, unspecified; H40.9 Unspecified glaucoma; I11.0 Hypertensive heart disease with heart failure; I50.9 Heart failure, unspecified; K21.9 Gastro-esophageal reflux disease without esophagitis; Z99.81 Dependence on supplemental oxygen; Z86.73 Personal history of transient ischemic attack (TIA), and cerebral infarction without residual deficits; N28.1 Cyst of kidney, acquired; Z79.84 Long term (current) use of oral hypoglycemic drugs; Z86.14 Personal history of Methicillin resistant Staphylococcus aureus infection; Z79.899 Other long term (current) drug therapy; Z95.820 Peripheral vascular angioplasty status with implants and grafts; Z87.891 Personal history of nicotine dependence
CPT/HCPCS: 36415; 70030-TC; 70450; 71045; 73630; 83605; 83735; 83970; 84100; 84155; 84156; 84165; 84300; 84443; 85025; 85730; 87040; 87077; 87086; 87400; 92610; 93005; 93307; 94640; 94664; 97110; 97530; A4663; C9113; G0378; J0696; J1815; J2405; J2543; J3370; J3475; J3480; J3590; J7030; J7040; J7050; J7060

== ENCOUNTER 2019-01-02 15:20 | Inpatient (IN) | payer MEDICAID, MEDICARE ==
[~2019-01-02] VITALS: Ht 170.2 cm; Wt 53.5 kg
[2019-01-02] VITALS (15 sets, daily range): BP systolic 89–129; BP diastolic 41–60
[~2019-01-02 15:20] MED LIST: ACET-2154 GT; ALBU2.5V38 IH; AMIO200T4 GT; ASCO500T10 GT; ATOR10TA GT; BISA10SU8 RC; COLL30OI TOP; DICL100G16 TP; DOCU-141 GT; FERR325T28 GT; FINA5TAB3 GT; IPRA0.2S48 IH; LINA5TAB GT; METO25TA6 GT; MULT-213 GT; Multivit, Iron, Min No. 8, Fa PO; NUT.237L30 GT; ONDA4TAB5 GT; PANT40TA4 GT; PROT30LI PO; PROT946L GT; SILVADENE CREAM 1% TOP; SIME80TA15 GT; SODI473S8 TP; TAMS-3 GT; TEMA15CA PO; TRAM50TA2 GT; ZINC220C8 GT
[2019-01-02] MEDS ORDERED: ONDANSETRON 4 MG/2 ML VIAL IV ONE (15:30)
[2019-01-02] MEDS ORDERED: IV NORMAL SALINE 1000 ML BAG IV ONE ×2 (15:30→17:00)
[2019-01-02] MEDS ORDERED: PANTOPRAZOLE SODIUM 40 MG VIAL IV ONE (15:30)
[2019-01-02] MEDS ORDERED: PANTOPRAZOLE SODIUM 40 MG VIAL ONE ×2 (15:36→17:38)
[2019-01-02] MEDS ORDERED: ONDANSETRON 4 MG/2 ML VIAL ONE (15:36)
[2019-01-02 15:52] LABS: BASOPHILS # (AUTO) 0.1 K/uL (0.0-8.0); BASOPHILS % (AUTO) 0.9 % (0.0-2.0); EOSINOPHILS # (AUTO) 0.7 K/uL (0.0-0.7); EOSINOPHILS % (AUTO) 7.6 % (0.0-7.0); HEMATOCRIT 23.4 % (36.7-47.1); HEMOGLOBIN 7.9 g/dL (12.5-16.3); LYMPHOCYTES # (AUTO) 2.5 K/uL (20.0-40.0); LYMPHOCYTES % (AUTO) 26.2 % (20.5-51.5); MEAN CORPUSCULAR HEMOGLOBIN 31.7 uug (23.8-33.4); MEAN CORPUSCULAR HGB CONC 34 g/dL (32.5-36.3); MEAN CORPUSCULAR VOLUME 94.2 fL (73.0-96.2); MONOCYTES # (AUTO) 0.7 K/uL (2.0-10.0); MONOCYTES % (AUTO) 7.1 % (0.0-11.0); NEUTROPHILS # (AUTO) 5.6 K/uL (1.8-8.9); NEUTROPHILS % (AUTO) 58.2 % (38.5-71.5); PLATELET COUNT (AUTO) 272 K/uL (152-348); RED BLOOD CELL COUNT(AUTO) 2.49 MIL/uL (4.06-5.63); WHITE BLOOD COUNT (AUTO) 9.7 K/uL (3.6-10.2)
[2019-01-02 16:06] LABS: CARBON DIOXIDE 26 mmol/L (21-32); CHLORIDE 98 mmol/L (98-107); CREATININE 1.8 mg/dL (0.6-1.3); GLUCOSE 113 mg/dL (74-106); UREA NITROGEN, BLOOD 73 mg/dL (7-18)
--- NOTE | 2019-01-02 16:10 | NUR ---
SUCTION AT LOW PRESSURE PLACED THROUGH THE G-TUBE. SUCTIONING COPIUS AMOUNT OF BLOOD. AWARE.
[2019-01-02 16:12] LABS: ALANINE AMINOTRANSFERASE 15 U/L (16-63); ALKALINE PHOSPHATASE 81 U/L (50-136); ASPARTATE AMINOTRANSFERASE 17 U/L (15-37); BILIRUBIN,DIRECT 0.1 mg/dL (0.0-0.2); BILIRUBIN,TOTAL 0.2 mg/dL (0.2-1.0); TOTAL PROTEIN, SERUM 7.5 g/dL (6.4-8.2)
[2019-01-02] MEDS ORDERED: SODIUM BICARBONATE 8.4% 50 MEQ/50 ML DISP.SYRIN IV ONE ×2 (17:00→17:04)
[2019-01-02] MEDS ORDERED: INSULIN REGULAR, HUMAN 300 UNIT/3 ML VIAL IV ONE (17:00)
[2019-01-02] MEDS ORDERED: CALCIUM CHLORIDE 1 GM/10 ML DISP.SYRIN IVP ONE ×2 (17:00→17:03)
[2019-01-02] MEDS ORDERED: DEXTROSE 50% 50 ML DISP.SYRIN IV ONE (17:00)
[2019-01-02] MEDS ORDERED: INSULIN REGULAR, HUMAN 300 UNIT/3 ML VIAL ONE (17:04)
[2019-01-02] MEDS ORDERED: DEXTROSE 50% 50 ML DISP.SYRIN ONE (17:04)
[2019-01-02] MEDS ORDERED: PANTOPRAZOLE SODIUM IV 80 MG in IV DEXTROSE 5% 500 ML IV ONE (17:15)
[2019-01-02] MEDS ORDERED: DOCU100T2 GT (17:38)
[2019-01-02] MEDS ORDERED: PANT40SU2 GT (17:38)
[2019-01-02] MEDS ORDERED: ASCO500T10 GT (17:38)
[2019-01-02] MEDS ORDERED: PROT946L GT (17:38)
[2019-01-02] MEDS ORDERED: ALBU2.5V38 IH (17:38)
[2019-01-02] MEDS ORDERED: FINA5TAB3 GT (17:38)
[2019-01-02] MEDS ORDERED: DICL100G16 TP (17:38)
[2019-01-02] MEDS ORDERED: TEMA15CA5 GT (17:38)
[2019-01-02] MEDS ORDERED: FERR325T24 GT (17:38)
[2019-01-02] MEDS ORDERED: ONDA4TAB10 GT (17:38)
[2019-01-02] MEDS ORDERED: COLL30OI TOP (17:38)
[2019-01-02] MEDS ORDERED: METO25TA6 GT (17:38)
[2019-01-02] MEDS ORDERED: LINA5TAB GT (17:38)
[2019-01-02] MEDS ORDERED: BISA10SU8 RC (17:38)
[2019-01-02] MEDS ORDERED: ACET160S2 GT (17:38)
[2019-01-02] MEDS ORDERED: NA P133E4 RC (17:38)
[2019-01-02] MEDS ORDERED: ZINC220C8 GT (17:38)
[2019-01-02] MEDS ORDERED: TRAM50TA2 GT (17:38)
[2019-01-02] MEDS ORDERED: TAMS-3 PO (17:38)
[2019-01-02] MEDS ORDERED: AMIO100T4 GT (17:38)
[2019-01-02] MEDS ORDERED: MELA3TAB GT (17:38)
[2019-01-02] MEDS ORDERED: SIME80TA15 GT (17:38)
[2019-01-02] MEDS ORDERED: MULT1TAB73 GT (17:38)
[2019-01-02] MEDS ORDERED: IPRA0.2S48 IH (17:38)
--- NOTE | 2019-01-02 18:04 | NUR ---
PT RESTING, MONITOR ON. PT FAMILY MEMBER AT BEDSIDE. PT FRANCIS LIEBERMAN PAIN,SOB OR DIZZINESS AT THIS TIME.
--- NOTE | 2019-01-02 19:04 | NUR ---
ASSUMED CARE OF PATIENT. PENDING INPATIENT ADMISSION TO CCU3 TELE TD STATUS
[2019-01-02] MEDS ORDERED: ACETAMINOPHEN 650 MG SUPP.RECT RC PRN (20:15)
[2019-01-02] MEDS ORDERED: ONDANSETRON 4 MG/2 ML VIAL IV PRN (20:15)
[2019-01-02] MEDS: PANTOPRAZOLE SODIUM 40 MG VIAL IV SCH (21:23)
[2019-01-02] MEDS: LORAZEPAM 2 MG/1 ML VIAL IV PRN (21:23)
[2019-01-02] MEDS: IV D5/ 0.9% NACL 1,000 ML IV PRN (21:25)
[2019-01-03] VITALS (18 sets, daily range): BP systolic 90–123; BP diastolic 36–70
[2019-01-03] MEDS ORDERED: IV NORMAL SALINE 250 ML BAG IV PRN (02:00)
[2019-01-03 05:13] LABS: ALANINE AMINOTRANSFERASE 10 U/L (16-63); ALKALINE PHOSPHATASE 59 U/L (50-136); ASPARTATE AMINOTRANSFERASE 14 U/L (15-37); BILIRUBIN,TOTAL 0.2 mg/dL (0.2-1.0); CARBON DIOXIDE 24 mmol/L (21-32); CHLORIDE 103 mmol/L (98-107); CREATININE 1.7 mg/dL (0.6-1.3); GLUCOSE 100 mg/dL (74-106); MAGNESIUM 1.9 mg/dL (1.8-2.4); PHOSPHOROUS 4.4 mg/dL (2.5-4.9); POTASSIUM 4.6 mmol/L (3.5-5.1); TOTAL PROTEIN, SERUM 5.7 g/dL (6.4-8.2)
[2019-01-03 05:17] LABS: IRON, SERUM 49 ug/dL (50-175)
[2019-01-03 05:27] LABS: BASOPHILS # (AUTO) 0.1 K/uL (0.0-8.0); BASOPHILS % (AUTO) 0.9 % (0.0-2.0); EOSINOPHILS # (AUTO) 0.5 K/uL (0.0-0.7); LYMPHOCYTES # (AUTO) 2.1 K/uL (20.0-40.0)
[2019-01-03 05:29] LABS: EOSINOPHILS % (AUTO) 6.8 % (0.0-7.0); LYMPHOCYTES % (AUTO) 27.6 % (20.5-51.5); MEAN CORPUSCULAR HEMOGLOBIN 32.4 uug (23.8-33.4); MEAN CORPUSCULAR HGB CONC 34 g/dL (32.5-36.3); MEAN CORPUSCULAR VOLUME 94.3 fL (73.0-96.2); MONOCYTES # (AUTO) 0.6 K/uL (2.0-10.0); MONOCYTES % (AUTO) 7.9 % (0.0-11.0); NEUTROPHILS # (AUTO) 4.4 K/uL (1.8-8.9); NEUTROPHILS % (AUTO) 56.8 % (38.5-71.5); PLATELET COUNT (AUTO) 187 K/uL (152-348); WHITE BLOOD COUNT (AUTO) 7.7 K/uL (3.6-10.2)
[2019-01-03 05:34] LABS: HEMOGLOBIN 5.2 g/dL (12.5-16.3); RED BLOOD CELL COUNT(AUTO) 1.61 MIL/uL (4.06-5.63)
[2019-01-03 05:35] LABS: HEMATOCRIT 15.2 % (36.7-47.1)
[2019-01-03 05:37] LABS: UREA NITROGEN, BLOOD 80 mg/dL (7-18)
--- NOTE | 2019-01-03 06:18 | NUR ---
anyi Samuel for critical labs.
--- NOTE | 2019-01-03 06:54 | NUR ---
Report called to Tess COHEN on [place]. Patient has had an uneventful night. Orders received for 2 Units PRBC. Consent signed. Patient received 1 dose of ativan at bedtime. Patient is c/o itching, otherwise no other c/o.
--- NOTE | 2019-01-03 08:37 | NUR ---
WOUND CARE CONSULT WOUND CARE RECEIVED CONSULT FOR SACRAL WITH DECUBITUS. WOUND CARE WILL DEFER CONSULT AND TREATMENT PLAN TO PLASTIC SURGICAL TEAM WHO HAS BEEN NOTIFIED OF THIS CONSULT.
[2019-01-03] MEDS: PANTOPRAZOLE SODIUM 40 MG VIAL IV SCH ×2 (08:54→20:26)
[2019-01-03] MEDS: THERAHONEY GEL 1.5 OZ TUBE TOP SCH (08:57)
[2019-01-03] MEDS ORDERED: COLLAGENASE OINT 30 GM TUBE TOP SCH (09:00)
--- NOTE | 2019-01-03 12:23 | NUR ---
WOUND CARE CONSULT: PT FOLLOWED BY PLASTIC SURGERY TEAM. DEFER TO SURGICAL TEAM FOR WOUND TREATMENT PLAN. DISCUSSED SKIN PROTECTION WITH NURSING STAFF. FIRST STEP LOW AIRLOSS MATTRESS ON ORDER. WILL SEE PRN.
[2019-01-03 16:02] LABS: BASOPHILS # (AUTO) 0.1 K/uL (0.0-8.0); BASOPHILS % (AUTO) 0.8 % (0.0-2.0); EOSINOPHILS # (AUTO) 0.4 K/uL (0.0-0.7); EOSINOPHILS % (AUTO) 5.5 % (0.0-7.0); HEMATOCRIT 23.6 % (36.7-47.1); HEMOGLOBIN 7.9 g/dL (12.5-16.3); LYMPHOCYTES # (AUTO) 1.8 K/uL (20.0-40.0); LYMPHOCYTES % (AUTO) 22.2 % (20.5-51.5); MEAN CORPUSCULAR HEMOGLOBIN 30.1 uug (23.8-33.4); MEAN CORPUSCULAR HGB CONC 34 g/dL (32.5-36.3); MEAN CORPUSCULAR VOLUME 89.9 fL (73.0-96.2); MONOCYTES # (AUTO) 0.5 K/uL (2.0-10.0); MONOCYTES % (AUTO) 6.6 % (0.0-11.0); NEUTROPHILS # (AUTO) 5.3 K/uL (1.8-8.9); NEUTROPHILS % (AUTO) 64.9 % (38.5-71.5); PLATELET COUNT (AUTO) 180 K/uL (152-348); RED BLOOD CELL COUNT(AUTO) 2.62 MIL/uL (4.06-5.63); WHITE BLOOD COUNT (AUTO) 8.1 K/uL (3.6-10.2)
[2019-01-03] MEDS: MORPHINE SULFATE 2 MG/1 ML DISP.SYRIN IV PRN (20:27)
[2019-01-03] MEDS ORDERED: MUPIROCIN 2% OINT 22 GM TUBE TP SCH (21:00)
[2019-01-03] MEDS: LORAZEPAM 2 MG/1 ML VIAL IV PRN (22:01)
[2019-01-04] VITALS (7 sets, daily range): BP systolic 116–135; BP diastolic 53–64
[2019-01-04] MEDS: MORPHINE SULFATE 2 MG/1 ML DISP.SYRIN IV PRN ×2 (00:57→20:18)
--- NOTE | 2019-01-04 02:40 | NUR ---
pt had metoprolol as prior to admission medication at the nursing facility.l Addendum: 01/04/19 at 0240 by FAUSTO MAC RN Amended: Links added.
--- NOTE | 2019-01-04 03:00 | NUR ---
report received from NOEL Pink. Patient in bed resting comfortably. in stable condition. will continue to monitor.
--- NOTE | 2019-01-04 03:00 | NUR ---
Patient rested well in between care; GT to LCS; dressing to sacrum done; c/o knee pain twice and medicated accordingly; continue to monitor; continue plan of care; report given to Donato to assume care.
[2019-01-04] MEDS: IV D5/ 0.9% NACL 1,000 ML IV PRN ×3 (03:50→20:26)
--- NOTE | 2019-01-04 06:18 | NUR ---
received patient in bed. patient resting comfortably through out the night. so s/s of bleeding. patient is in stable condition with VS within normal limits. patient at GT with low continuous suction. Patient denies any pain at this time. will endorse poc to day shift nurse.
[2019-01-04 06:56] LABS: BASOPHILS # (AUTO) 0.1 K/uL (0.0-8.0); BASOPHILS % (AUTO) 1.1 % (0.0-2.0); EOSINOPHILS % (AUTO) 11.8 % (0.0-7.0); HEMOGLOBIN 7.9 g/dL (12.5-16.3); LYMPHOCYTES # (AUTO) 1.8 K/uL (20.0-40.0); LYMPHOCYTES % (AUTO) 21.7 % (20.5-51.5); MEAN CORPUSCULAR HEMOGLOBIN 30.6 uug (23.8-33.4); MEAN CORPUSCULAR HGB CONC 34 g/dL (32.5-36.3); MEAN CORPUSCULAR VOLUME 88.9 fL (73.0-96.2); MONOCYTES # (AUTO) 0.6 K/uL (2.0-10.0); MONOCYTES % (AUTO) 7.9 % (0.0-11.0); NEUTROPHILS # (AUTO) 4.7 K/uL (1.8-8.9); NEUTROPHILS % (AUTO) 57.5 % (38.5-71.5); PLATELET COUNT (AUTO) 200 K/uL (152-348); RED BLOOD CELL COUNT(AUTO) 2.59 MIL/uL (4.06-5.63); WHITE BLOOD COUNT (AUTO) 8.1 K/uL (3.6-10.2)
[2019-01-04] MEDS ORDERED: IRR NORMAL SALINE IRRIGATION 1,000 ML BOTTLE IR ONE (07:23)
[2019-01-04] MEDS ORDERED: IV NORMAL SALINE 1000 ML BAG IV ONE ×2 (07:23→07:25)
[2019-01-04] MEDS ORDERED: PROPOFOL 200 MG/20 ML BOTTLE IV ONE ×2 (07:23→07:25)
[2019-01-04] MEDS ORDERED: IRR STERIL WATER FOR IRR 1000 ML BOTTLE IR ONE (07:25)
[2019-01-04 07:55] LABS: CARBON DIOXIDE 23 mmol/L (21-32); CHLORIDE 112 mmol/L (98-107); CREATININE 1.5 mg/dL (0.6-1.3); GLUCOSE 89 mg/dL (74-106); MAGNESIUM 1.7 mg/dL (1.8-2.4); PHOSPHOROUS 3.9 mg/dL (2.5-4.9); POTASSIUM 3.6 mmol/L (3.5-5.1); UREA NITROGEN, BLOOD 58 mg/dL (7-18)
--- NOTE | 2019-01-04 08:08 | NUR ---
RESTING COMFORTABLY IN BED WITH EYES CLOSED NO SS OF PAIN OR RESP. DISTRESS. NPO MAINTAINED FOR EGD BY DR YUN
[2019-01-04] MEDS: PANTOPRAZOLE SODIUM 40 MG VIAL IV SCH ×2 (08:11→20:11)
[2019-01-04] MEDS: MUPIROCIN 2% OINT 22 GM TUBE TP SCH ×2 (08:12→20:13)
[2019-01-04] MEDS: THERAHONEY GEL 1.5 OZ TUBE TOP SCH (08:12)
[2019-01-04] MEDS ORDERED: FENTANYL CITRATE 100 MCG/2 ML AMPUL ONE (09:48)
--- NOTE | 2019-01-04 10:15 | NUR ---
WENT TO GI LAB FOR EGD VIA BED ACCOMPANIED BY STAFF.
[2019-01-04] MEDS ORDERED: MAGNESIUM SULFATE/D5W 100 ML IV SCH (11:30)
[2019-01-04] MEDS ORDERED: SUCRALFATE 1 G/10 ML LIQUID UDC PO ONE (12:15)
--- NOTE | 2019-01-04 12:30 | NUR ---
BACK FROM GI LAB AWAKE ALERT NO SS OF DISTRESS.. GT SI. WOUND CARE DONETE CLEAN WITH GT INTACT
[2019-01-04] MEDS ORDERED: VITAL AF 1.2 1,000 ML LIQUID GT PRN ×3 (14:30→16:49)
[2019-01-04] MEDS: SUCRALFATE 1 G/10 ML LIQUID UDC PO SCH ×2 (16:45→20:11)
--- NOTE | 2019-01-04 17:44 | NUR ---
TOLERATING FEEDING WELL NO SIGNS OF BLEEDING BUT MILD PAIN GT SITE. FEEDING STARTED ORDERED.
--- NOTE | 2019-01-04 20:30 | NUR ---
PATIENT AWAKE IN BED, AAOX3. ON TELE WITH SR. C/O OF ABDOMINAL PAIN, PRN MORPHINE GIVEN WITH EFFECT. NO C/O PAIN OR ANY DISTRESS AT THIS TIME. SAFETY MEASURES IN PLACE.
[2019-01-05] MEDS: MORPHINE SULFATE 2 MG/1 ML DISP.SYRIN IV PRN ×2 (00:54→20:37)
[2019-01-05 03:21] VITALS: BP 118/58
[2019-01-05] MEDS: SUCRALFATE 1 G/10 ML LIQUID UDC PO SCH ×4 (06:39→20:32)
--- NOTE | 2019-01-05 06:42 | NUR ---
PATIENT IS AWAKE, NO S/S OF PAIN AT PRESENT. PRN PAINS WERE GIVEN X2 WITH EFFECT ON THIS SHIFT. NO S/S OF GI BLEED ON THIS SHIFT. SAFETY MAINTAINED AT ALL TIMES
--- NOTE | 2019-01-05 07:59 | NUR ---
AWAKE ALERT AND VERBALLY RESPONSIVE NO SS OF DISTRESS, SR ON MONITOR, TOLERATING FEEDING ORDERED. CLOSELY MONITORED
[2019-01-05 08:09] LABS: BASOPHILS # (AUTO) 0.1 K/uL (0.0-8.0); BASOPHILS % (AUTO) 0.9 % (0.0-2.0); EOSINOPHILS # (AUTO) 0.8 K/uL (0.0-0.7); EOSINOPHILS % (AUTO) 9.8 % (0.0-7.0); HEMATOCRIT 22.8 % (36.7-47.1); HEMOGLOBIN 7.8 g/dL (12.5-16.3); LYMPHOCYTES # (AUTO) 1.5 K/uL (20.0-40.0); LYMPHOCYTES % (AUTO) 19.2 % (20.5-51.5); MEAN CORPUSCULAR HEMOGLOBIN 30.8 uug (23.8-33.4); MEAN CORPUSCULAR HGB CONC 34 g/dL (32.5-36.3); MEAN CORPUSCULAR VOLUME 90.3 fL (73.0-96.2); MONOCYTES # (AUTO) 0.6 K/uL (2.0-10.0); MONOCYTES % (AUTO) 8.1 % (0.0-11.0); PLATELET COUNT (AUTO) 210 K/uL (152-348); RED BLOOD CELL COUNT(AUTO) 2.53 MIL/uL (4.06-5.63); WHITE BLOOD COUNT (AUTO) 8.1 K/uL (3.6-10.2)
[2019-01-05] MEDS: PANTOPRAZOLE SODIUM 40 MG VIAL IV SCH ×2 (08:17→20:32)
[2019-01-05 08:18] LABS: CARBON DIOXIDE 23 mmol/L (21-32); CHLORIDE 112 mmol/L (98-107); CREATININE 1.4 mg/dL (0.6-1.3); GLUCOSE 125 mg/dL (74-106); MAGNESIUM 1.8 mg/dL (1.8-2.4); PHOSPHOROUS 3.2 mg/dL (2.5-4.9); POTASSIUM 3.5 mmol/L (3.5-5.1); UREA NITROGEN, BLOOD 37 mg/dL (7-18)
[2019-01-05] MEDS: THERAHONEY GEL 1.5 OZ TUBE TOP SCH (08:18)
[2019-01-05] MEDS: MUPIROCIN 2% OINT 22 GM TUBE TP SCH ×2 (08:18→20:39)
[2019-01-05 11:00] VITALS: BP 141/63
[2019-01-05] MEDS: IV D5/ 0.9% NACL 1,000 ML IV PRN (11:58)
--- NOTE | 2019-01-05 13:00 | NUR ---
SEEN BY BAYRON BOSS NP FOR FOLLOW-UP SEE NOTES.
--- NOTE | 2019-01-05 15:34 | NUR ---
CONTINUE CURRENT TX PLAN, TOLERATING FEEDING ORDERED. NO ACUTE CHANGE
[2019-01-05 16:00] VITALS: BP 134/69
--- NOTE | 2019-01-05 19:20 | NUR ---
Received patient lying in bed. AAOx3. In no acute distress. Denies any pain or SOB at this time. IV site on right wrist intact and patent. IVF infusing. GT site intact and patent. GT feeding on going. Needs assessed and attended to. Safety measure initiated and call varghese within reach.
[2019-01-05 20:00] VITALS: BP 106/50
[2019-01-05] MEDS: LORAZEPAM 2 MG/1 ML VIAL IV PRN (23:03)
--- NOTE | 2019-01-06 | NUR ---
GT feeding increase to 50cc/hr and tolerating well.
[2019-01-06] MEDS: IV D5/ 0.9% NACL 1,000 ML IV PRN (01:36)
[2019-01-06 05:36] VITALS: BP 139/72
[2019-01-06] MEDS: SUCRALFATE 1 G/10 ML LIQUID UDC PO SCH ×3 (06:37→17:37)
--- NOTE | 2019-01-06 06:40 | NUR ---
AAOx3. In no acute distress. Denies any further pain. Denies any SOB. IV site on right wrist remains intact and patent. IVF infusing. GT feeding and flushing well tolerated. Safety measure maintained and call varghese within reach.
[2019-01-06 07:29] LABS: BASOPHILS # (AUTO) 0.1 K/uL (0.0-8.0); BASOPHILS % (AUTO) 0.8 % (0.0-2.0); EOSINOPHILS # (AUTO) 0.8 K/uL (0.0-0.7); EOSINOPHILS % (AUTO) 9.6 % (0.0-7.0); HEMATOCRIT 22.3 % (36.7-47.1); HEMOGLOBIN 7.7 g/dL (12.5-16.3); LYMPHOCYTES # (AUTO) 1.7 K/uL (20.0-40.0); LYMPHOCYTES % (AUTO) 19.9 % (20.5-51.5); MEAN CORPUSCULAR HEMOGLOBIN 31.2 uug (23.8-33.4); MEAN CORPUSCULAR HGB CONC 35 g/dL (32.5-36.3); MEAN CORPUSCULAR VOLUME 90.2 fL (73.0-96.2); MONOCYTES # (AUTO) 0.7 K/uL (2.0-10.0); MONOCYTES % (AUTO) 8.7 % (0.0-11.0); NEUTROPHILS # (AUTO) 5.3 K/uL (1.8-8.9); PLATELET COUNT (AUTO) 202 K/uL (152-348); WHITE BLOOD COUNT (AUTO) 8.6 K/uL (3.6-10.2)
[2019-01-06 07:32] LABS: RED BLOOD CELL COUNT(AUTO) 2.47 MIL/uL (4.06-5.63)
[2019-01-06 07:51] LABS: CARBON DIOXIDE 22 mmol/L (21-32); CHLORIDE 110 mmol/L (98-107); CREATININE 1.2 mg/dL (0.6-1.3); GLUCOSE 127 mg/dL (74-106); MAGNESIUM 1.4 mg/dL (1.8-2.4); POTASSIUM 3.5 mmol/L (3.5-5.1); UREA NITROGEN, BLOOD 30 mg/dL (7-18)
--- NOTE | 2019-01-06 08:00 | NUR ---
Sleeping, appears comfortable. IVF infusing. GT clamped.
[2019-01-06 09:00] VITALS: BP 136/54
[2019-01-06] MEDS: PANTOPRAZOLE SODIUM 40 MG VIAL IV SCH (09:20)
[2019-01-06] MEDS: MUPIROCIN 2% OINT 22 GM TUBE TP SCH (09:21)
[2019-01-06] MEDS: THERAHONEY GEL 1.5 OZ TUBE TOP SCH (09:21)
[2019-01-06] MEDS: MORPHINE SULFATE 2 MG/1 ML DISP.SYRIN IV PRN (09:26)
[2019-01-06 09:28] VITALS: BP 135/65
--- NOTE | 2019-01-06 10:00 | NUR ---
G tube feeding increased to 60 ML/HR, goal rate. Family at bedside, discussed plan of care
[2019-01-06] MEDS: MAGNESIUM SULFATE/D5W 100 ML IV SCH ×2 (12:35→13:53)
--- NOTE | 2019-01-06 13:25 | NUR ---
MG 1.4, Magnesium IV given as ordered
--- NOTE | 2019-01-06 14:30 | NUR ---
IV site swelling, infiltrated. Saline lock removed. Magnesium IV infusion stopped
[2019-01-06] MEDS ORDERED: PANT40TA2 PO (14:42)
[2019-01-06] MEDS ORDERED: NUT.237L65 GT (14:42)
[2019-01-06] MEDS ORDERED: SUCR1ORA PO (14:42)
[2019-01-06] MEDS ORDERED: MUPI22OI2 TP (14:42)
[2019-01-06 16:08] VITALS: BP 129/66
--- NOTE | 2019-01-06 18:38 | NUR ---
With discharge order to SNF, arranged at [facility]. Report given to Laurita. Saline lock removed.
--- NOTE | 2019-01-06 19:25 | NUR ---
RECEIVED PT AWAKE, ALERT AND ORIENTEDX4. PT SHOWS NO SIGNS OF ACUTE DISTRESS. IV INTACT. PEG TUBE INTACT. WAITING TO BE PICKED UP BY [facility]. WILL CONTINUE TO MONITOR.
--- NOTE | 2019-01-06 20:35 | NUR ---
PT DISCHARGED. WHEELED OUT VIA GURNEY BY PREETI DISCHARGE PAPERS GIVEN TO ADELAIDA ÁLVAREZ 129.DISCHARGE INSTRUCTIONS GIVEN TO PT. PT UNDERSTAND THE DISCHARGE INSTRUCTION. PT STABLE. IN NO ACUTE DISTRESS. PT VITAL SIGNS WITHIN NORMAL LIMIT. ID BAND TAKEN OFF. BELONGING LIST GIVEN.
== END 2019-01-06 20:38 | DRG 377 ==
LOC: ER 15:20 → CCU 19:29 → TELE-TD3 01-03 07:42 → MEDSURG3 01-05 20:41
PROVIDERS: ADMIT Internal Medicine; ATTEND Internal Medicine
PROC: 30233N1 Transfusion of Nonautologous Red Blood Cells into Peripheral Vein, Percutaneous Approach (ICD-10-PCS; principal; 2019-01-03)
PROC: 0W3P8ZZ Control Bleeding in Gastrointestinal Tract, Via Natural or Artificial Opening Endoscopic (ICD-10-PCS; 2019-01-04)
PROC: 0D798ZZ Dilation of Duodenum, Via Natural or Artificial Opening Endoscopic (ICD-10-PCS; 2019-01-04)
PROC: 0D20XUZ Change Feeding Device in Upper Intestinal Tract, External Approach (ICD-10-PCS; 2019-01-04)
DX: K25.4 Chronic or unspecified gastric ulcer with hemorrhage (principal); L89.154 Pressure ulcer of sacral region, stage 4; N17.0 Acute kidney failure with tubular necrosis; E43 Unspecified severe protein-calorie malnutrition; G93.41 Metabolic encephalopathy; D62 Acute posthemorrhagic anemia; E87.1 Hypo-osmolality and hyponatremia; K31.1 Adult hypertrophic pyloric stenosis; Z68.1 Body mass index [BMI] 19.9 or less, adult; K94.23 Gastrostomy malfunction; I13.2 Hypertensive heart and chronic kidney disease with heart failure and with stage 5 chronic kidney disease, or end stage renal disease; N18.5 Chronic kidney disease, stage 5; I50.32 Chronic diastolic (congestive) heart failure; D68.59 Other primary thrombophilia; E87.5 Hyperkalemia; E11.51 Type 2 diabetes mellitus with diabetic peripheral angiopathy without gangrene; K29.60 Other gastritis without bleeding; Z90.3 Acquired absence of stomach [part of]; I25.10 Atherosclerotic heart disease of native coronary artery without angina pectoris; Z22.322 Carrier or suspected carrier of Methicillin resistant Staphylococcus aureus; E11.42 Type 2 diabetes mellitus with diabetic polyneuropathy; Z95.820 Peripheral vascular angioplasty status with implants and grafts; R13.10 Dysphagia, unspecified; N40.1 Benign prostatic hyperplasia with lower urinary tract symptoms; M81.0 Age-related osteoporosis without current pathological fracture; E11.22 Type 2 diabetes mellitus with diabetic chronic kidney disease; I50.84 End stage heart failure; Z79.899 Other long term (current) drug therapy; M19.90 Unspecified osteoarthritis, unspecified site; K57.30 Diverticulosis of large intestine without perforation or abscess without bleeding; K21.9 Gastro-esophageal reflux disease without esophagitis; J44.9 Chronic obstructive pulmonary disease, unspecified; Z87.01 Personal history of pneumonia (recurrent); E83.39 Other disorders of phosphorus metabolism; E78.5 Hyperlipidemia, unspecified; E86.0 Dehydration; E03.9 Hypothyroidism, unspecified; Z95.1 Presence of aortocoronary bypass graft; F01.50 Vascular dementia, unspecified severity, without behavioral disturbance, psychotic disturbance, mood disturbance, and anxiety; D69.6 Thrombocytopenia, unspecified; Z86.73 Personal history of transient ischemic attack (TIA), and cerebral infarction without residual deficits; Z96.641 Presence of right artificial hip joint; Z95.5 Presence of coronary angioplasty implant and graft; Z79.84 Long term (current) use of oral hypoglycemic drugs
CPT/HCPCS: 36415; 70030-TC; 71045; 83550; 83735; 84100; 85025; 85730; 86850; 86900; 86901; 86920; 93005; A4217; A4663; C9113; G0378; J1815; J2060; J2270; J2405; J3010; J3475; J3490; J7030; J7042; J7050; J7060; P9016-BL; P9021

== ENCOUNTER 2019-02-23 12:33 | Emergency (ER) | payer MEDICARE, MEDICAID ==
[~2019-02-23] VITALS: Ht 172.7 cm; Wt 56.7 kg
[~2019-02-23 12:33] MED LIST changes: -ACET-2154 GT; +ACET160S2 GT; +AMIO100T4 GT; -AMIO200T4 GT; -ATOR10TA GT; -DOCU-141 GT; +DOCU100T2 GT; +FERR325T24 GT; -FERR325T28 GT; +MELA3TAB GT; -MULT-213 GT; +MULT1TAB73 GT; +MUPI22OI2 TP; -Multivit, Iron, Min No. 8, Fa PO; +NA P133E4 RC; -NUT.237L30 GT; +NUT.237L65 GT; +ONDA4TAB10 GT; -ONDA4TAB5 GT; +PANT40SU2 GT; +PANT40TA2 PO; -PANT40TA4 GT; -PROT30LI PO; -SILVADENE CREAM 1% TOP; -SODI473S8 TP; +SUCR1ORA PO; -TAMS-3 GT; +TAMS-3 PO; -TEMA15CA PO; +TEMA15CA5 GT
--- NOTE | 2019-02-23 12:45 | NUR ---
G-TUBE (24 FR) PLACED BY .
[2019-02-23] MEDS ORDERED: DIATR MEGLU/DIATRIZOATE SODIUM 30 ML SOLUTION ONE (12:54)
--- NOTE | 2019-02-23 13:37 | NUR ---
Nurse Douglas of [facility] notified: discharge back to [facility], ambulance DVR=[id number]. Addendum: 02/23/19 at 1615 by JIM Nurse Douglas of [facility] accepted discharge instructions. Patient is for discharged to [facility]. Written and verbal after care instructions given to patient and [facility] nurse. Patient & primary nurse verbalized understanding & compliance of instructions.
--- NOTE | 2019-02-23 15:28 | NUR ---
Patient is resting comfortably on gurney with eyes closed, NAD, still for ambulance supervisor picking crew
--- NOTE | 2019-02-23 15:30 | NUR ---
new ambulance SCP=[id number]. Patient notified.
--- NOTE | 2019-02-23 16:01 | NUR ---
Patient is AOx3-4 c/o bilateral knee pains (chronic), MD notified.
[2019-02-23] MEDS ORDERED: ACETAMINOPHEN 650 MG/20.3 ML LIQUID UDC ONE (16:10)
[2019-02-23] MEDS ORDERED: ACETAMINOPHEN 650 MG/20.3 ML LIQUID UDC PO ONE (16:15)
--- NOTE | 2019-02-23 16:17 | NUR ---
Patient left ER in stable condition.
== END 2019-02-23 16:19 | disposition home or self-care (01) ==
LOC: ER 12:33
DX: K94.23 Gastrostomy malfunction (principal); E11.9 Type 2 diabetes mellitus without complications; Z86.73 Personal history of transient ischemic attack (TIA), and cerebral infarction without residual deficits; Z79.899 Other long term (current) drug therapy
CPT/HCPCS: 74018; A4663; Q9963

== ENCOUNTER 2019-06-07 10:46 | Inpatient (IN) | payer MEDICARE, OTHER ==
[~2019-06-07] VITALS: Ht 172.7 cm; Wt 70.4 kg
[~2019-06-07 10:46] MED LIST changes: -ALBU2.5V38 IH; +ALBU2.5V38 NEB; -BISA10SU8 RC; +BISA10SU95 RC; -MUPI22OI2 TP; -NUT.237L65 GT; -PANT40TA2 PO; -SUCR1ORA PO
[2019-06-07] MEDS ORDERED: IV NORMAL SALINE 1000 ML BAG IV ONE (11:00)
[2019-06-07 11:17] LABS: BASOPHILS % (AUTO) 1.2 % (0.0-2.0); EOSINOPHILS % (AUTO) 6.4 % (0.0-7.0); HEMATOCRIT 22.4 % (36.7-47.1); HEMOGLOBIN 7.6 g/dL (12.5-16.3); MEAN CORPUSCULAR HEMOGLOBIN 34.9 uug (23.8-33.4); MEAN CORPUSCULAR HGB CONC 34 g/dL (32.5-36.3); MONOCYTES % (AUTO) 10.1 % (0.0-11.0); NEUTROPHILS # (AUTO) 4.6 K/uL (1.8-8.9); NEUTROPHILS % (AUTO) 62.3 % (38.5-71.5); PLATELET COUNT (AUTO) 220 K/uL (152-348); WHITE BLOOD COUNT (AUTO) 7.4 K/uL (3.6-10.2)
[2019-06-07 11:18] LABS: BASOPHILS # (AUTO) 0.1 K/uL (0.0-8.0); EOSINOPHILS # (AUTO) 0.5 K/uL (0.0-0.7); LYMPHOCYTES # (AUTO) 1.5 K/uL (20.0-40.0); MONOCYTES # (AUTO) 0.7 K/uL (2.0-10.0)
[2019-06-07 11:24] LABS: CARBON DIOXIDE 25 mmol/L (21-32); CHLORIDE 102 mmol/L (98-107); CREATININE 4.2 mg/dL (0.6-1.3); GLUCOSE 123 mg/dL (74-106); POTASSIUM 5.7 mmol/L (3.5-5.1); RED BLOOD CELL COUNT(AUTO) 2.19 MIL/uL (4.06-5.63)
[2019-06-07 11:25] LABS: UREA NITROGEN, BLOOD 86 mg/dL (7-18)
[2019-06-07 11:30] LABS: ALANINE AMINOTRANSFERASE 10 U/L (16-63); ALKALINE PHOSPHATASE 83 U/L (50-136); ASPARTATE AMINOTRANSFERASE 7 U/L (15-37); BILIRUBIN,DIRECT 0.1 mg/dL (0.0-0.2); BILIRUBIN,TOTAL 0.3 mg/dL (0.2-1.0); TOTAL PROTEIN, SERUM 7.6 g/dL (6.4-8.2)
[2019-06-07] MEDS ORDERED: LEVO50TA8 GT (12:18)
[2019-06-07] MEDS ORDERED: MAGNESIUM HYDROXIDE 30 ML LIQUID UDC PO PRN (15:00)
[2019-06-07] MEDS ORDERED: SODIUM POLYSTYRENE SULFONATE 15 G/60 ML LIQUID UDC GT ONE (15:15)
[2019-06-07] MEDS ORDERED: BISACODYL 10 MG SUPP.RECT RC PRN (15:30)
[2019-06-07 15:45] LABS: IRON, SERUM 65 ug/dL (50-175)
[2019-06-07] MEDS ORDERED: Medication Not On Formulary EA (Docusate Sodium 100 MG) GT SCH (17:00)
[2019-06-07] MEDS ORDERED: SODIUM POLYSTYRENE SULF POWDER 15 GM UDC ONE (17:17)
[2019-06-07 18:14] VITALS: BP 164/52
[2019-06-07] MEDS: IV D5 1/2 NS 1000 ML 1,000 ML IV PRN (18:14)
[2019-06-07] MEDS: SIMETHICONE 80 MG TAB.CHEW GT SCH ×2 (18:26→20:57)
[2019-06-07 20:00] VITALS: BP 156/70
[2019-06-07] MEDS: MELATONIN 3 MG TABLET GT SCH (20:57)
[2019-06-07] MEDS: TAMSULOSIN HCL 0.4 MG CAP.SR.24H XX SCH (20:57)
[2019-06-07] MEDS: DOCUSATE SODIUM 100 MG/10 ML LIQUID UDC GT SCH (20:57)
[2019-06-07] MEDS: METOPROLOL TARTRATE 25 MG TABLET GT SCH (20:57)
[2019-06-07] MEDS: TEMAZEPAM 15 MG CAPSULE GT PRN (21:07)
[2019-06-07] MEDS: ONDANSETRON 4 MG/2 ML VIAL IV PRN (21:25)
[2019-06-07] MEDS: ACETAMINOPHEN 325 MG TABLET GT PRN (21:33)
[2019-06-07] MEDS ORDERED: METRONIDAZOLE 500 MG/NS 100ML 200 ML IV ONE (21:55)
[2019-06-07] MEDS ORDERED: CEFTRIAXONE /D5W 50ML IVPB **ER PYXIS IV ONE (21:56)
[2019-06-07] MEDS: CEFTRIAXONE 1 G in IV DEXTROSE 5% 50 ML IV SCH (22:04)
[2019-06-07] MEDS: METRONIDAZOLE 500 MG/NS 100ML 500 MG in PREMIXED 1 EACH IV SCH (22:47)
[2019-06-08] VITALS (8 sets, daily range): BP systolic 110–139; BP diastolic 41–69
[2019-06-08 04:18] LABS: *BILIRUBIN,URIN NEGATIVE (NEGATIVE); *BLOOD, URINE 2+ (NEGATIVE); *CLARITY,URINE CLEAR (CLEAR); *COLOR,URINE YELLOW (YELLOW); *KETONES,URINE NEGATIVE (NEGATIVE); *UROBILINOGEN,URINE 0.2 E.U./dl (NORMAL); LEUKOCYTE ESTERASE ,URINE NEGATIVE (NEGATIVE); NITRITE, URINE NEGATIVE (NEGATIVE); UGLUCOSE NEGATIVE (NEGATIVE)
[2019-06-08 04:32] LABS: BACTERIA,URINE NONE SEEN /HPF (NONE SEEN); RBC,URINE 80-100 /HPF (0-3); SQUAMOUS EPITHELIAL CELL,UR FEW /HPF (NONE SEEN)
[2019-06-08] MEDS: METRONIDAZOLE 500 MG/NS 100ML 500 MG in PREMIXED 1 EACH IV SCH ×3 (05:57→21:18)
[2019-06-08] MEDS: IV D5 1/2 NS 1000 ML 1,000 ML IV PRN (06:11)
[2019-06-08 06:42] LABS: EOSINOPHILS % (AUTO) 5.7 % (0.0-7.0); MONOCYTES # (AUTO) 0.8 K/uL (2.0-10.0)
[2019-06-08 06:44] LABS: BASOPHILS % (AUTO) 0.6 % (0.0-2.0); EOSINOPHILS # (AUTO) 0.5 K/uL (0.0-0.7); LYMPHOCYTES # (AUTO) 1.7 K/uL (20.0-40.0); LYMPHOCYTES % (AUTO) 21.6 % (20.5-51.5); MEAN CORPUSCULAR HEMOGLOBIN 35.7 uug (23.8-33.4); MEAN CORPUSCULAR HGB CONC 35 g/dL (32.5-36.3); MEAN CORPUSCULAR VOLUME 102.3 fL (73.0-96.2); MONOCYTES % (AUTO) 9.4 % (0.0-11.0); NEUTROPHILS # (AUTO) 5.1 K/uL (1.8-8.9); NEUTROPHILS % (AUTO) 62.7 % (38.5-71.5); PLATELET COUNT (AUTO) 216 K/uL (152-348); WHITE BLOOD COUNT (AUTO) 8.1 K/uL (3.6-10.2)
[2019-06-08 06:51] LABS: HEMATOCRIT 20.2 % (36.7-47.1); HEMOGLOBIN 7.1 g/dL (12.5-16.3); RED BLOOD CELL COUNT(AUTO) 1.98 MIL/uL (4.06-5.63)
[2019-06-08] MEDS ORDERED: PANTOPRAZOLE SODIUM 40 MG TABLET.DR PO SCH (07:00)
[2019-06-08] MEDS ORDERED: LEVOTHYROXINE SODIUM 50 MCG TABLET GT SCH (07:00)
[2019-06-08 07:01] LABS: ALANINE AMINOTRANSFERASE 6 U/L (16-63); ALKALINE PHOSPHATASE 71 U/L (50-136); ASPARTATE AMINOTRANSFERASE 9 U/L (15-37); BILIRUBIN,TOTAL 0.4 mg/dL (0.2-1.0); CARBON DIOXIDE 22 mmol/L (21-32); CHLORIDE 104 mmol/L (98-107); CHOLESTEROL 129 mg/dL (<200); GLUCOSE 99 mg/dL (74-106); HDL CHOLESTEROL 40 mg/dL (40-60); MAGNESIUM 1.8 mg/dL (1.8-2.4); PHOSPHOROUS 4.9 mg/dL (2.5-4.9); POTASSIUM 5.1 mmol/L (3.5-5.1); TOTAL PROTEIN, SERUM 6.8 g/dL (6.4-8.2); TRIGLYCERIDES 66 MG/DL (30-150)
[2019-06-08 07:02] LABS: UREA NITROGEN, BLOOD 80 mg/dL (7-18)
[2019-06-08 07:05] LABS: THYROID STIMULATING HORMONE 25.856 mIU/mL (0.358-3.740)
[2019-06-08] MEDS ORDERED: diphenhydrAMINE 50 MG CAPSULE PO ONE (08:00)
[2019-06-08] MEDS ORDERED: ACETAMINOPHEN ES 500 MG TABLET PO ONE (08:00)
[2019-06-08] MEDS: PROTEIN SUPPLEMENT (PROSTAT) 30 ML LIQUID GT SCH (08:13)
[2019-06-08] MEDS: DOCUSATE SODIUM 100 MG/10 ML LIQUID UDC GT SCH ×2 (08:14→20:30)
[2019-06-08] MEDS: AMIODARONE HCL 200 MG TABLET GT SCH (08:14)
[2019-06-08] MEDS: PANTOPRAZOLE ORAL SUSPENSION 40 MG SUSPDR.PKT GT SCH (08:15)
[2019-06-08] MEDS: FINASTERIDE 5 MG TABLET GT SCH (08:15)
[2019-06-08] MEDS: ZINC SULFATE 220 MG CAPSULE GT SCH (08:15)
[2019-06-08] MEDS: MULTIVITAMINS,THERAPEUTIC TABLET GT SCH (08:15)
[2019-06-08] MEDS: ASCORBIC ACID 500 MG TABLET GT SCH (08:15)
[2019-06-08] MEDS: METOPROLOL TARTRATE 25 MG TABLET GT SCH ×2 (08:15→20:28)
[2019-06-08] MEDS: SIMETHICONE 80 MG TAB.CHEW GT SCH ×4 (08:15→20:27)
[2019-06-08] MEDS ORDERED: Medication Not On Formulary EA (Protein Supplement (Promod) 30 ML) GT SCH (09:00)
[2019-06-08] MEDS ORDERED: Medication Not On Formulary EA (Multivitamins (Multivitamin) 1 EACH) GT SCH (09:00)
[2019-06-08] MEDS: ACETAMINOPHEN 325 MG TABLET GT PRN (13:38)
[2019-06-08] MEDS: TAMSULOSIN HCL 0.4 MG CAP.SR.24H XX SCH (20:27)
[2019-06-08] MEDS: MELATONIN 3 MG TABLET GT SCH (20:28)
[2019-06-08] MEDS: HYDROCODONE/APAP 5-325MG TABLET GT PRN (20:28)
[2019-06-08] MEDS: CEFTRIAXONE 1 G in IV DEXTROSE 5% 50 ML IV SCH (20:30)
[2019-06-08 21:54] LABS: BASOPHILS # (AUTO) 0.1 K/uL (0.0-8.0); BASOPHILS % (AUTO) 0.7 % (0.0-2.0); EOSINOPHILS # (AUTO) 0.5 K/uL (0.0-0.7); EOSINOPHILS % (AUTO) 6.6 % (0.0-7.0); HEMATOCRIT 23.3 % (36.7-47.1); HEMOGLOBIN 8.1 g/dL (12.5-16.3); LYMPHOCYTES # (AUTO) 1.1 K/uL (20.0-40.0); LYMPHOCYTES % (AUTO) 13.3 % (20.5-51.5); MEAN CORPUSCULAR HEMOGLOBIN 34.5 uug (23.8-33.4); MEAN CORPUSCULAR HGB CONC 35 g/dL (32.5-36.3); MEAN CORPUSCULAR VOLUME 98.9 fL (73.0-96.2); MONOCYTES # (AUTO) 0.7 K/uL (2.0-10.0); NEUTROPHILS # (AUTO) 5.6 K/uL (1.8-8.9); NEUTROPHILS % (AUTO) 70.4 % (38.5-71.5); PLATELET COUNT (AUTO) 199 K/uL (152-348); WHITE BLOOD COUNT (AUTO) 7.9 K/uL (3.6-10.2)
[2019-06-08 21:59] LABS: RED BLOOD CELL COUNT(AUTO) 2.36 MIL/uL (4.06-5.63)
[2019-06-09] MEDS: TEMAZEPAM 15 MG CAPSULE GT PRN ×2 (00:10→22:09)
[2019-06-09] MEDS: ACETAMINOPHEN 325 MG TABLET GT PRN ×2 (00:10→22:10)
[2019-06-09 00:11] VITALS: BP 122/57
[2019-06-09] MEDS: IV D5 1/2 NS 1000 ML 1,000 ML IV PRN ×2 (02:08→16:04)
[2019-06-09 04:27] VITALS: BP 118/59
[2019-06-09] MEDS: METRONIDAZOLE 500 MG/NS 100ML 500 MG in PREMIXED 1 EACH IV SCH ×3 (05:08→22:09)
[2019-06-09] MEDS: LEVOTHYROXINE SODIUM 50 MCG TABLET GT SCH (06:12)
[2019-06-09 07:25] LABS: BASOPHILS % (AUTO) 0.6 % (0.0-2.0); EOSINOPHILS # (AUTO) 0.5 K/uL (0.0-0.7); EOSINOPHILS % (AUTO) 7.4 % (0.0-7.0); HEMATOCRIT 22.9 % (36.7-47.1); HEMOGLOBIN 7.9 g/dL (12.5-16.3); LYMPHOCYTES # (AUTO) 0.7 K/uL (20.0-40.0); LYMPHOCYTES % (AUTO) 11.9 % (20.5-51.5); MEAN CORPUSCULAR HEMOGLOBIN 34.3 uug (23.8-33.4); MEAN CORPUSCULAR HGB CONC 35 g/dL (32.5-36.3); MEAN CORPUSCULAR VOLUME 99.4 fL (73.0-96.2); MONOCYTES # (AUTO) 0.6 K/uL (2.0-10.0); MONOCYTES % (AUTO) 9.2 % (0.0-11.0); NEUTROPHILS # (AUTO) 4.5 K/uL (1.8-8.9); NEUTROPHILS % (AUTO) 70.9 % (38.5-71.5); PLATELET COUNT (AUTO) 202 K/uL (152-348); WHITE BLOOD COUNT (AUTO) 6.3 K/uL (3.6-10.2)
[2019-06-09 07:44] LABS: ALANINE AMINOTRANSFERASE 6 U/L (16-63); ALKALINE PHOSPHATASE 76 U/L (50-136); ASPARTATE AMINOTRANSFERASE 9 U/L (15-37); BILIRUBIN,TOTAL 0.6 mg/dL (0.2-1.0); CARBON DIOXIDE 20 mmol/L (21-32); CHLORIDE 107 mmol/L (98-107); CREATINE KINASE, TOTAL 290 U/L (39-308); CREATININE 4.1 mg/dL (0.6-1.3); GLUCOSE 145 mg/dL (74-106); MAGNESIUM 1.8 mg/dL (1.8-2.4); PHOSPHOROUS 5.5 mg/dL (2.5-4.9); POTASSIUM 4.7 mmol/L (3.5-5.1); TOTAL PROTEIN, SERUM 6.7 g/dL (6.4-8.2); UREA NITROGEN, BLOOD 75 mg/dL (7-18)
[2019-06-09] MEDS: PROTEIN SUPPLEMENT (PROSTAT) 30 ML LIQUID GT SCH (08:26)
[2019-06-09] MEDS: AMIODARONE HCL 200 MG TABLET GT SCH (08:26)
[2019-06-09] MEDS: DOCUSATE SODIUM 100 MG/10 ML LIQUID UDC GT SCH ×2 (08:26→20:22)
[2019-06-09] MEDS: ASCORBIC ACID 500 MG TABLET GT SCH (08:27)
[2019-06-09] MEDS: ZINC SULFATE 220 MG CAPSULE GT SCH (08:27)
[2019-06-09] MEDS: METOPROLOL TARTRATE 25 MG TABLET GT SCH ×2 (08:27→20:23)
[2019-06-09] MEDS: PANTOPRAZOLE ORAL SUSPENSION 40 MG SUSPDR.PKT GT SCH (08:27)
[2019-06-09] MEDS: MULTIVITAMINS,THERAPEUTIC TABLET GT SCH (08:27)
[2019-06-09] MEDS: FINASTERIDE 5 MG TABLET GT SCH (08:27)
[2019-06-09] MEDS: SIMETHICONE 80 MG TAB.CHEW GT SCH ×4 (08:27→20:22)
[2019-06-09] MEDS ORDERED: BISACODYL 5 MG TABLET.DR PO ONE (09:30)
[2019-06-09] MEDS: HYDROCODONE/APAP 5-325MG TABLET GT PRN ×2 (10:18→20:34)
[2019-06-09] MEDS: ONDANSETRON 4 MG/2 ML VIAL IV PRN (10:19)
[2019-06-09 11:28] LABS: *OCCULT BLOOD STOOL NEGATIVE (NEGATIVE)
[2019-06-09 11:45] VITALS: BP 144/64
[2019-06-09 12:12] LABS: *BILIRUBIN,URIN NEGATIVE (NEGATIVE); *BLOOD, URINE 2+ (NEGATIVE); *CLARITY,URINE CLEAR (CLEAR); *COLOR,URINE YELLOW (YELLOW); *KETONES,URINE NEGATIVE (NEGATIVE); *UROBILINOGEN,URINE 0.2 E.U./dl (NORMAL); LEUKOCYTE ESTERASE ,URINE NEGATIVE (NEGATIVE); NITRITE, URINE NEGATIVE (NEGATIVE); UGLUCOSE NEGATIVE (NEGATIVE)
[2019-06-09 12:22] LABS: *CREATININE,URINE 42.4 mg/dL (30-125); *URINE TOTAL PROTEIN RANDOM 127.4 mg/dL (<150/24HR)
[2019-06-09 12:27] LABS: RBC,URINE TNTC /HPF (0-3)
[2019-06-09 12:29] LABS: BACTERIA,URINE NONE SEEN /HPF (NONE SEEN); WBC,URINE 0-3 /HPF (0-3)
[2019-06-09 12:30] LABS: SQUAMOUS EPITHELIAL CELL,UR NONE SEEN /HPF (NONE SEEN)
[2019-06-09 15:22] VITALS: BP 120/47
[2019-06-09] MEDS: JEVITY 1.2 1000 ML LIQUID GT PRN (16:49)
[2019-06-09 20:00] VITALS: BP 135/60
[2019-06-09] MEDS: MELATONIN 3 MG TABLET GT SCH (20:23)
[2019-06-09] MEDS: TAMSULOSIN HCL 0.4 MG CAP.SR.24H XX SCH (20:23)
[2019-06-09] MEDS: CEFTRIAXONE 1 G in IV DEXTROSE 5% 50 ML IV SCH (21:12)
[2019-06-10] MEDS: MORPHINE SULFATE 2 MG/1 ML DISP.SYRIN IV PRN (01:19)
[2019-06-10 05:44] VITALS: BP 131/57
[2019-06-10] MEDS: METRONIDAZOLE 500 MG/NS 100ML 500 MG in PREMIXED 1 EACH IV SCH (06:20)
[2019-06-10] MEDS: IV D5 1/2 NS 1000 ML 1,000 ML IV PRN (06:21)
[2019-06-10] MEDS: LEVOTHYROXINE SODIUM 50 MCG TABLET GT SCH (06:21)
[2019-06-10 06:51] LABS: BASOPHILS % (AUTO) 0.4 % (0.0-2.0); EOSINOPHILS # (AUTO) 0.6 K/uL (0.0-0.7); EOSINOPHILS % (AUTO) 8.5 % (0.0-7.0); HEMATOCRIT 22.8 % (36.7-47.1); HEMOGLOBIN 8.2 g/dL (12.5-16.3); LYMPHOCYTES # (AUTO) 0.9 K/uL (20.0-40.0); LYMPHOCYTES % (AUTO) 12.3 % (20.5-51.5); MEAN CORPUSCULAR HEMOGLOBIN 36.4 uug (23.8-33.4); MEAN CORPUSCULAR HGB CONC 36 g/dL (32.5-36.3); MEAN CORPUSCULAR VOLUME 100.9 fL (73.0-96.2); MONOCYTES # (AUTO) 0.7 K/uL (2.0-10.0); MONOCYTES % (AUTO) 9.1 % (0.0-11.0); NEUTROPHILS # (AUTO) 5.2 K/uL (1.8-8.9); NEUTROPHILS % (AUTO) 69.7 % (38.5-71.5); PLATELET COUNT (AUTO) 188 K/uL (152-348); WHITE BLOOD COUNT (AUTO) 7.5 K/uL (3.6-10.2)
[2019-06-10 06:57] LABS: RED BLOOD CELL COUNT(AUTO) 2.26 MIL/uL (4.06-5.63)
[2019-06-10 06:58] LABS: CARBON DIOXIDE 22 mmol/L (21-32); CHLORIDE 107 mmol/L (98-107); CREATININE 3.9 mg/dL (0.6-1.3); GLUCOSE 148 mg/dL (74-106); POTASSIUM 4.5 mmol/L (3.5-5.1); UREA NITROGEN, BLOOD 69 mg/dL (7-18)
[2019-06-10] MEDS: AMIODARONE HCL 200 MG TABLET GT SCH (08:28)
[2019-06-10] MEDS: DOCUSATE SODIUM 100 MG/10 ML LIQUID UDC GT SCH ×2 (08:28→21:35)
[2019-06-10] MEDS: PROTEIN SUPPLEMENT (PROSTAT) 30 ML LIQUID GT SCH (08:28)
[2019-06-10] MEDS: ASPIRIN 81 MG TAB.CHEW GT SCH (08:28)
[2019-06-10] MEDS: PANTOPRAZOLE ORAL SUSPENSION 40 MG SUSPDR.PKT GT SCH (08:29)
[2019-06-10] MEDS: ZINC SULFATE 220 MG CAPSULE GT SCH (08:29)
[2019-06-10] MEDS: FINASTERIDE 5 MG TABLET GT SCH (08:29)
[2019-06-10] MEDS: METOPROLOL TARTRATE 25 MG TABLET GT SCH ×2 (08:29→21:38)
[2019-06-10] MEDS: SIMETHICONE 80 MG TAB.CHEW GT SCH ×4 (08:29→21:35)
[2019-06-10] MEDS: MULTIVITAMINS,THERAPEUTIC TABLET GT SCH (08:29)
[2019-06-10] MEDS: ASCORBIC ACID 500 MG TABLET GT SCH (08:29)
[2019-06-10 08:31] LABS: MAGNESIUM 1.7 mg/dL (1.8-2.4); PHOSPHOROUS 5.2 mg/dL (2.5-4.9)
[2019-06-10] MEDS ORDERED: ASPIRIN EC 81 MG TABLET.DR PO SCH (09:00)
[2019-06-10] MEDS ORDERED: MAGNESIUM OXIDE 400 MG TABLET PO ONE ×2 (09:00→09:40)
[2019-06-10] MEDS: IV NS 1000 ML 1,000 ML IV PRN ×2 (09:05→22:57)
[2019-06-10 11:47] VITALS: BP 130/55
[2019-06-10] MEDS: METRONIDAZOLE 500 MG TABLET PO SCH ×2 (13:23→21:35)
[2019-06-10] MEDS: ONDANSETRON 4 MG/2 ML VIAL IV PRN ×3 (13:32→21:58)
[2019-06-10 15:54] VITALS: BP 149/72
[2019-06-10] MEDS: JEVITY 1.2 1000 ML LIQUID GT PRN (17:04)
[2019-06-10 20:06] VITALS: BP 157/66
[2019-06-10] MEDS ORDERED: CIPROFLOXACIN HCL 250 MG TABLET PO SCH (21:00)
[2019-06-10] MEDS: MELATONIN 3 MG TABLET GT SCH (21:35)
[2019-06-10] MEDS: TAMSULOSIN HCL 0.4 MG CAP.SR.24H XX SCH (21:35)
[2019-06-10] MEDS: TEMAZEPAM 15 MG CAPSULE GT PRN (21:36)
[2019-06-10] MEDS: HYDROCODONE/APAP 5-325MG TABLET GT PRN (21:36)
[2019-06-10] MEDS: CIPROFLOXACIN HCL 250 MG TABLET PO SCH (21:37)
[2019-06-11 04:03] VITALS: BP 157/80
[2019-06-11] MEDS: LEVOTHYROXINE SODIUM 50 MCG TABLET GT SCH (06:03)
[2019-06-11] MEDS: METRONIDAZOLE 500 MG TABLET PO SCH ×3 (06:03→21:05)
[2019-06-11 06:46] LABS: BASOPHILS # (AUTO) 0.1 K/uL (0.0-8.0); BASOPHILS % (AUTO) 0.5 % (0.0-2.0); EOSINOPHILS # (AUTO) 0.1 K/uL (0.0-0.7); EOSINOPHILS % (AUTO) 0.7 % (0.0-7.0); HEMATOCRIT 23.9 % (36.7-47.1); HEMOGLOBIN 8.2 g/dL (12.5-16.3); LYMPHOCYTES # (AUTO) 0.9 K/uL (20.0-40.0); MEAN CORPUSCULAR HEMOGLOBIN 34.3 uug (23.8-33.4); MEAN CORPUSCULAR HGB CONC 34 g/dL (32.5-36.3); MEAN CORPUSCULAR VOLUME 100.4 fL (73.0-96.2); MONOCYTES # (AUTO) 0.9 K/uL (2.0-10.0); MONOCYTES % (AUTO) 7.2 % (0.0-11.0); NEUTROPHILS # (AUTO) 10.5 K/uL (1.8-8.9); NEUTROPHILS % (AUTO) 84.6 % (38.5-71.5); PLATELET COUNT (AUTO) 187 K/uL (152-348); WHITE BLOOD COUNT (AUTO) 12.4 K/uL (3.6-10.2)
[2019-06-11 06:49] LABS: RED BLOOD CELL COUNT(AUTO) 2.38 MIL/uL (4.06-5.63)
[2019-06-11 06:52] LABS: CARBON DIOXIDE 21 mmol/L (21-32); CHLORIDE 109 mmol/L (98-107); CREATININE 3.9 mg/dL (0.6-1.3); GLUCOSE 169 mg/dL (74-106); MAGNESIUM 1.5 mg/dL (1.8-2.4); POTASSIUM 4.6 mmol/L (3.5-5.1); UREA NITROGEN, BLOOD 63 mg/dL (7-18)
[2019-06-11 07:04] LABS: THYROID STIMULATING HORMONE 9.277 mIU/mL (0.358-3.740)
[2019-06-11] MEDS: PROTEIN SUPPLEMENT (PROSTAT) 30 ML LIQUID GT SCH (09:07)
[2019-06-11] MEDS: MAGNESIUM SULFATE/D5W 100 ML IV SCH ×2 (09:07→11:40)
[2019-06-11] MEDS: FINASTERIDE 5 MG TABLET GT SCH (09:08)
[2019-06-11] MEDS: ZINC SULFATE 220 MG CAPSULE GT SCH (09:08)
[2019-06-11] MEDS: ASCORBIC ACID 500 MG TABLET GT SCH (09:09)
[2019-06-11] MEDS: SIMETHICONE 80 MG TAB.CHEW GT SCH ×4 (09:09→21:05)
[2019-06-11] MEDS: MULTIVITAMINS,THERAPEUTIC TABLET GT SCH (09:09)
[2019-06-11] MEDS: ASPIRIN 81 MG TAB.CHEW GT SCH (09:09)
[2019-06-11] MEDS: DOCUSATE SODIUM 100 MG/10 ML LIQUID UDC GT SCH ×2 (09:10→09:48)
[2019-06-11] MEDS: MIRALAX 17 GM POWD.PACK GT SCH ×2 (09:10→09:48)
[2019-06-11] MEDS: FAMOTIDINE 20 MG TABLET PO SCH (09:21)
[2019-06-11] MEDS: AMIODARONE HCL 200 MG TABLET GT SCH (09:22)
[2019-06-11] MEDS: MORPHINE SULFATE 2 MG/1 ML DISP.SYRIN IV PRN ×3 (09:22→21:04)
[2019-06-11] MEDS: METOPROLOL TARTRATE 25 MG TABLET GT SCH ×2 (09:23→21:10)
[2019-06-11] MEDS: ONDANSETRON 4 MG/2 ML VIAL IV PRN ×3 (09:35→21:04)
[2019-06-11 11:12] VITALS: BP 152/75
[2019-06-11] MEDS: IV NS 1000 ML 1,000 ML IV PRN (13:45)
[2019-06-11 15:12] VITALS: BP 168/79
[2019-06-11] MEDS: CIPROFLOXACIN HCL 250 MG TABLET PO SCH (15:46)
[2019-06-11 20:08] VITALS: BP 171/81
[2019-06-11] MEDS: MELATONIN 3 MG TABLET GT SCH (21:00)
[2019-06-11] MEDS: TAMSULOSIN HCL 0.4 MG CAP.SR.24H XX SCH (21:05)
[2019-06-11] MEDS: TEMAZEPAM 15 MG CAPSULE GT PRN (23:44)
[2019-06-12] VITALS (13 sets, daily range): BP systolic 142–171; BP diastolic 61–92
[2019-06-12] MEDS: IV NS 1000 ML 1,000 ML IV PRN (02:55)
[2019-06-12] MEDS: MORPHINE SULFATE 2 MG/1 ML DISP.SYRIN IV PRN (04:58)
[2019-06-12] MEDS: ONDANSETRON 4 MG/2 ML VIAL IV PRN (04:58)
[2019-06-12] MEDS: METRONIDAZOLE 500 MG TABLET PO SCH (06:06)
[2019-06-12] MEDS: LEVOTHYROXINE SODIUM 50 MCG TABLET GT SCH (06:07)
[2019-06-12 06:37] LABS: ALANINE AMINOTRANSFERASE 9 U/L (16-63); ALKALINE PHOSPHATASE 74 U/L (50-136); ASPARTATE AMINOTRANSFERASE 20 U/L (15-37); BILIRUBIN,TOTAL 0.6 mg/dL (0.2-1.0); CARBON DIOXIDE 18 mmol/L (21-32); CHLORIDE 108 mmol/L (98-107); CREATININE 4.1 mg/dL (0.6-1.3); GLUCOSE 133 mg/dL (74-106); MAGNESIUM 1.9 mg/dL (1.8-2.4); PHOSPHOROUS 4.2 mg/dL (2.5-4.9); POTASSIUM 4.7 mmol/L (3.5-5.1); TOTAL PROTEIN, SERUM 6.5 g/dL (6.4-8.2); UREA NITROGEN, BLOOD 67 mg/dL (7-18)
[2019-06-12 06:39] LABS: BASOPHILS # (AUTO) 0.1 K/uL (0.0-8.0); BASOPHILS % (AUTO) 0.4 % (0.0-2.0); HEMATOCRIT 24.9 % (36.7-47.1); HEMOGLOBIN 8.5 g/dL (12.5-16.3)
[2019-06-12 06:51] LABS: EOSINOPHILS % (AUTO) 0.2 % (0.0-7.0); LYMPHOCYTES # (AUTO) 0.7 K/uL (20.0-40.0); LYMPHOCYTES % (AUTO) 4.5 % (20.5-51.5); MEAN CORPUSCULAR HEMOGLOBIN 34.5 uug (23.8-33.4); MEAN CORPUSCULAR HGB CONC 34 g/dL (32.5-36.3); MONOCYTES # (AUTO) 1.1 K/uL (2.0-10.0); MONOCYTES % (AUTO) 6.8 % (0.0-11.0); NEUTROPHILS # (AUTO) 14.3 K/uL (1.8-8.9); NEUTROPHILS % (AUTO) 88.1 % (38.5-71.5); PLATELET COUNT (AUTO) 176 K/uL (152-348)
[2019-06-12 06:52] LABS: RED BLOOD CELL COUNT(AUTO) 2.46 MIL/uL (4.06-5.63); WHITE BLOOD COUNT (AUTO) 16.2 K/uL (3.6-10.2)
[2019-06-12] MEDS ORDERED: PROPOFOL 200 MG/20 ML BOTTLE IV ONE (07:00)
[2019-06-12] MEDS ORDERED: IV NORMAL SALINE 1000 ML BAG IV ONE (07:00)
[2019-06-12] MEDS ORDERED: SIMETHICONE 40 MG/0.6 ML, 30ML BOTTLE MC ONE (07:00)
[2019-06-12] MEDS ORDERED: IRR STERIL WATER FOR IRR 1000 ML BOTTLE IR ONE (07:00)
[2019-06-12] MEDS ORDERED: LIDOCAINE-MPF 2% 5 ML VIAL MC ONE (07:00)
[2019-06-12 07:06] LABS: A/G RATIO 0.8 (0.7-1.7); ALBUMIN 2.7 g/dL (2.9-4.4); ALPHA-1-GLOBULIN 0.2 g/dL (0.0-0.4); ALPHA-2-GLOBULIN 0.6 g/dL (0.4-1.0); BETA GLOBULIN 0.9 g/dL (0.7-1.3); GAMMA GLOBULIN 1.6 g/dL (0.4-1.8); GLOBULIN, TOTAL 3.3 g/dL (2.2-3.9); M-SPIKE Not Observed g/dL (Not Observed)
[2019-06-12] MEDS: PROTEIN SUPPLEMENT (PROSTAT) 30 ML LIQUID GT SCH (08:00)
[2019-06-12] MEDS ORDERED: FENTANYL CITRATE 100 MCG/2 ML AMPUL ONE (08:44)
[2019-06-12] MEDS: SIMETHICONE 80 MG TAB.CHEW GT SCH ×4 (09:00→20:57)
[2019-06-12] MEDS: CIPROFLOXACIN HCL 250 MG TABLET PO SCH (09:00)
[2019-06-12] MEDS: MULTIVITAMINS,THERAPEUTIC TABLET GT SCH (09:00)
[2019-06-12] MEDS: ASPIRIN 81 MG TAB.CHEW GT SCH (09:00)
[2019-06-12] MEDS: ASCORBIC ACID 500 MG TABLET GT SCH (09:00)
[2019-06-12] MEDS: ZINC SULFATE 220 MG CAPSULE GT SCH (09:00)
[2019-06-12] MEDS: DOCUSATE SODIUM 100 MG/10 ML LIQUID UDC GT SCH ×2 (09:00→20:58)
[2019-06-12] MEDS: METOPROLOL TARTRATE 25 MG TABLET GT SCH ×3 (09:00→20:58)
[2019-06-12] MEDS: FAMOTIDINE 20 MG TABLET PO SCH (09:00)
[2019-06-12] MEDS: FINASTERIDE 5 MG TABLET GT SCH (09:00)
[2019-06-12] MEDS: AMIODARONE HCL 200 MG TABLET GT SCH ×2 (09:00→11:15)
[2019-06-12] MEDS ORDERED: CIPROFLOXACIN HCL 250 MG TABLET GT SCH ×2 (10:59→11:00)
[2019-06-12] MEDS ORDERED: FAMOTIDINE 20 MG TABLET GT SCH (11:08)
[2019-06-12] MEDS: FAMOTIDINE 20 MG TABLET GT SCH (11:28)
[2019-06-12] MEDS ORDERED: METRONIDAZOLE 500 MG TABLET GT SCH (14:00)
[2019-06-12] MEDS ORDERED: FUROSEMIDE 40 MG/4 ML VIAL IV ONE (19:15)
[2019-06-12] MEDS: TAMSULOSIN HCL 0.4 MG CAP.SR.24H XX SCH (20:57)
[2019-06-12] MEDS: MELATONIN 3 MG TABLET GT SCH (20:57)
[2019-06-12] MEDS: MEROPENEM 500 MG in IV NORMAL SALINE 50 ML IV SCH (20:59)
[2019-06-12] MEDS: TEMAZEPAM 15 MG CAPSULE GT PRN (22:57)
[2019-06-13 04:39] VITALS: BP 152/64
[2019-06-13 06:41] LABS: BASOPHILS # (AUTO) 0.1 K/uL (0.0-8.0); BASOPHILS % (AUTO) 0.5 % (0.0-2.0); EOSINOPHILS % (AUTO) 0.2 % (0.0-7.0); HEMATOCRIT 24.6 % (36.7-47.1); HEMOGLOBIN 8.6 g/dL (12.5-16.3); LYMPHOCYTES # (AUTO) 0.8 K/uL (20.0-40.0); LYMPHOCYTES % (AUTO) 5.8 % (20.5-51.5); MEAN CORPUSCULAR HEMOGLOBIN 35.1 uug (23.8-33.4); MEAN CORPUSCULAR HGB CONC 35 g/dL (32.5-36.3); MEAN CORPUSCULAR VOLUME 100.9 fL (73.0-96.2); MONOCYTES # (AUTO) 1.1 K/uL (2.0-10.0); MONOCYTES % (AUTO) 8.1 % (0.0-11.0); NEUTROPHILS % (AUTO) 85.4 % (38.5-71.5); PLATELET COUNT (AUTO) 172 K/uL (152-348); WHITE BLOOD COUNT (AUTO) 14.1 K/uL (3.6-10.2)
[2019-06-13 06:46] LABS: CARBON DIOXIDE 19 mmol/L (21-32); CHLORIDE 111 mmol/L (98-107); CREATININE 4.6 mg/dL (0.6-1.3); GLUCOSE 188 mg/dL (74-106); MAGNESIUM 2.1 mg/dL (1.8-2.4); PHOSPHOROUS 4.8 mg/dL (2.5-4.9)
[2019-06-13 06:52] LABS: UREA NITROGEN, BLOOD 83 mg/dL (7-18)
[2019-06-13 07:00] LABS: RED BLOOD CELL COUNT(AUTO) 2.44 MIL/uL (4.06-5.63)
[2019-06-13 07:09] LABS: HEPATITIS B SURFACE AB Non Reactive (.); HEPATITIS B SURFACE AG Negative (Negative)
[2019-06-13] MEDS: LEVOTHYROXINE SODIUM 50 MCG TABLET GT SCH (07:21)
[2019-06-13] MEDS: ASPIRIN 81 MG TAB.CHEW GT SCH (08:28)
[2019-06-13] MEDS: ASCORBIC ACID 500 MG TABLET GT SCH (08:34)
[2019-06-13] MEDS: DOCUSATE SODIUM 100 MG/10 ML LIQUID UDC GT SCH ×2 (08:34→20:17)
[2019-06-13] MEDS: FINASTERIDE 5 MG TABLET GT SCH (08:34)
[2019-06-13] MEDS: AMIODARONE HCL 200 MG TABLET GT SCH (08:34)
[2019-06-13] MEDS: PROTEIN SUPPLEMENT (PROSTAT) 30 ML LIQUID GT SCH (08:35)
[2019-06-13] MEDS: MEROPENEM 500 MG in IV NORMAL SALINE 50 ML IV SCH ×2 (08:36→20:19)
[2019-06-13] MEDS: METOPROLOL TARTRATE 25 MG TABLET GT SCH ×2 (08:53→20:18)
[2019-06-13] MEDS: SIMETHICONE 80 MG TAB.CHEW GT SCH ×4 (08:53→20:18)
[2019-06-13] MEDS: HYDROCODONE/APAP 5-325MG TABLET GT PRN (08:53)
[2019-06-13] MEDS: MULTIVITAMINS,THERAPEUTIC TABLET GT SCH (08:53)
[2019-06-13] MEDS: ZINC SULFATE 220 MG CAPSULE GT SCH (08:54)
[2019-06-13] MEDS: FAMOTIDINE 20 MG TABLET GT SCH (08:54)
[2019-06-13] MEDS: MIRALAX 17 GM POWD.PACK GT SCH (08:54)
[2019-06-13] MEDS: JEVITY 1.2 1000 ML LIQUID GT PRN (09:58)
[2019-06-13] MEDS: ONDANSETRON 4 MG/2 ML VIAL IV PRN (10:17)
[2019-06-13 11:03] VITALS: BP 132/73
[2019-06-13 11:06] LABS: *ANTI-SCLERODERMA-70 AB <0.2 AI (0.0-0.9); *SJOGREN'S ANTI-SS-A <0.2 AI (0.0-0.9); *SJOGREN'S ANTI-SS-B <0.2 AI (0.0-0.9); *SMITH ANTIBODIES <0.2 AI (0.0-0.9); ANTI-DNA(DS) AB, QN <1 IU/mL (0-9)
[2019-06-13] MEDS: methylPREDNISolone SOD SUCC 125 MG/2 ML VIAL IV SCH ×2 (11:22→21:32)
[2019-06-13 14:06] LABS: COMPLEMENT, C3 SERUM 73 mg/dL (82-167); COMPLEMENT, C4 SERUM 18 mg/dL (14-44)
[2019-06-13 15:15] VITALS: BP 155/80
[2019-06-13] MEDS ORDERED: FUROSEMIDE 40 MG/4 ML VIAL IV ONE (15:15)
[2019-06-13 20:00] VITALS: BP 169/100
[2019-06-13] MEDS: MELATONIN 3 MG TABLET GT SCH (20:18)
[2019-06-13] MEDS: TAMSULOSIN HCL 0.4 MG CAP.SR.24H XX SCH (20:18)
[2019-06-13] MEDS: ALBUTEROL SULFATE 2.5 MG/3 ML NEBU NEB PRN (20:39)
[2019-06-13] MEDS: ACETAMINOPHEN 325 MG TABLET GT PRN (21:59)
[2019-06-13] MEDS: TEMAZEPAM 15 MG CAPSULE GT PRN (21:59)
[2019-06-14] MEDS: methylPREDNISolone SOD SUCC 125 MG/2 ML VIAL IV SCH ×3 (05:42→21:58)
[2019-06-14] MEDS: LEVOTHYROXINE SODIUM 50 MCG TABLET GT SCH (06:19)
[2019-06-14 06:43] VITALS: BP 161/93
[2019-06-14 07:03] LABS: ALANINE AMINOTRANSFERASE 10 U/L (16-63); ALKALINE PHOSPHATASE 80 U/L (50-136); ASPARTATE AMINOTRANSFERASE 18 U/L (15-37); BILIRUBIN,TOTAL 0.4 mg/dL (0.2-1.0); CARBON DIOXIDE 20 mmol/L (21-32); CHLORIDE 109 mmol/L (98-107); GLUCOSE 187 mg/dL (74-106); MAGNESIUM 2.2 mg/dL (1.8-2.4); PHOSPHOROUS 5.7 mg/dL (2.5-4.9); POTASSIUM 5.2 mmol/L (3.5-5.1)
[2019-06-14 07:11] LABS: UREA NITROGEN, BLOOD 102 mg/dL (7-18)
[2019-06-14 07:24] LABS: BASOPHILS % (AUTO) 0.2 % (0.0-2.0); HEMATOCRIT 30.7 % (36.7-47.1); HEMOGLOBIN 10.4 g/dL (12.5-16.3); LYMPHOCYTES # (AUTO) 0.4 K/uL (20.0-40.0); LYMPHOCYTES % (AUTO) 4.3 % (20.5-51.5); MEAN CORPUSCULAR HEMOGLOBIN 34.1 uug (23.8-33.4); MEAN CORPUSCULAR HGB CONC 34 g/dL (32.5-36.3); MONOCYTES # (AUTO) 0.2 K/uL (2.0-10.0); MONOCYTES % (AUTO) 1.8 % (0.0-11.0); NEUTROPHILS # (AUTO) 8.2 K/uL (1.8-8.9); NEUTROPHILS % (AUTO) 93.7 % (38.5-71.5); PLATELET COUNT (AUTO) 167 K/uL (152-348); RED BLOOD CELL COUNT(AUTO) 3.04 MIL/uL (4.06-5.63); WHITE BLOOD COUNT (AUTO) 8.7 K/uL (3.6-10.2)
[2019-06-14] MEDS: ZINC SULFATE 220 MG CAPSULE GT SCH (09:14)
[2019-06-14] MEDS ORDERED: ALBUTEROL SULFATE 2.5 MG/3 ML NEBU NEB ONE (09:15)
[2019-06-14] MEDS: AMIODARONE HCL 200 MG TABLET GT SCH (09:15)
[2019-06-14] MEDS: FINASTERIDE 5 MG TABLET GT SCH (09:16)
[2019-06-14] MEDS: MULTIVITAMINS,THERAPEUTIC TABLET GT SCH (09:16)
[2019-06-14] MEDS: METOPROLOL TARTRATE 25 MG TABLET GT SCH ×2 (09:17→20:14)
[2019-06-14] MEDS: ASCORBIC ACID 500 MG TABLET GT SCH (09:17)
[2019-06-14] MEDS: PROTEIN SUPPLEMENT (PROSTAT) 30 ML LIQUID GT SCH (09:18)
[2019-06-14] MEDS: DOCUSATE SODIUM 100 MG/10 ML LIQUID UDC GT SCH ×2 (09:18→20:15)
[2019-06-14] MEDS: MIRALAX 17 GM POWD.PACK GT SCH (09:18)
[2019-06-14] MEDS: FAMOTIDINE 20 MG TABLET GT SCH (09:18)
[2019-06-14] MEDS: MEROPENEM 500 MG in IV NORMAL SALINE 50 ML IV SCH ×2 (09:19→20:15)
[2019-06-14] MEDS: SIMETHICONE 80 MG TAB.CHEW GT SCH ×4 (09:53→20:14)
[2019-06-14] MEDS ORDERED: LIDOCAINE HCL 1% 20 ML VIAL ONE (10:33)
[2019-06-14 11:04] VITALS: BP 169/88
[2019-06-14] MEDS: MORPHINE SULFATE 2 MG/1 ML DISP.SYRIN IV PRN ×2 (11:05→20:06)
[2019-06-14 15:17] VITALS: BP 140/59
[2019-06-14] MEDS ORDERED: MIDAZOLAM HCL 2 MG/2 ML VIAL IV ONE (15:44)
[2019-06-14] MEDS: JEVITY 1.2 1000 ML LIQUID GT PRN (17:49)
[2019-06-14 20:12] VITALS: BP 140/74
[2019-06-14] MEDS: MELATONIN 3 MG TABLET GT SCH (20:14)
[2019-06-14] MEDS: TAMSULOSIN HCL 0.4 MG CAP.SR.24H XX SCH (20:14)
[2019-06-14] MEDS: TEMAZEPAM 15 MG CAPSULE GT PRN (21:59)
[2019-06-14] MEDS: ALBUTEROL SULFATE 2.5 MG/3 ML NEBU NEB PRN (22:31)
[2019-06-15] MEDS: LEVOTHYROXINE SODIUM 50 MCG TABLET GT SCH (06:10)
[2019-06-15] MEDS: methylPREDNISolone SOD SUCC 125 MG/2 ML VIAL IV SCH ×3 (06:10→21:29)
[2019-06-15 06:18] VITALS: BP 142/75
[2019-06-15 06:29] LABS: BASOPHILS % (AUTO) 0.1 % (0.0-2.0); HEMATOCRIT 23.5 % (36.7-47.1); HEMOGLOBIN 8.1 g/dL (12.5-16.3); LYMPHOCYTES # (AUTO) 0.4 K/uL (20.0-40.0); LYMPHOCYTES % (AUTO) 3.5 % (20.5-51.5); MEAN CORPUSCULAR HEMOGLOBIN 34.1 uug (23.8-33.4); MEAN CORPUSCULAR HGB CONC 34 g/dL (32.5-36.3); MEAN CORPUSCULAR VOLUME 99.3 fL (73.0-96.2); MONOCYTES # (AUTO) 0.4 K/uL (2.0-10.0); MONOCYTES % (AUTO) 3.4 % (0.0-11.0); NEUTROPHILS # (AUTO) 9.8 K/uL (1.8-8.9); PLATELET COUNT (AUTO) 191 K/uL (152-348); WHITE BLOOD COUNT (AUTO) 10.6 K/uL (3.6-10.2)
[2019-06-15 06:37] LABS: RED BLOOD CELL COUNT(AUTO) 2.36 MIL/uL (4.06-5.63)
[2019-06-15 06:39] LABS: CARBON DIOXIDE 15 mmol/L (21-32); CHLORIDE 105 mmol/L (98-107); CREATININE 5.1 mg/dL (0.6-1.3)
[2019-06-15 06:42] LABS: GLUCOSE 359 mg/dL (74-106); UREA NITROGEN, BLOOD 125 mg/dL (7-18)
[2019-06-15] MEDS ORDERED: DEXTROSE 50% 50 ML DISP.SYRIN IV PRN (07:00)
[2019-06-15] MEDS: BLOOD SUGAR DIAGNOSTIC 1 EACH STRIP VI SCH ×3 (07:19→18:06)
[2019-06-15] MEDS: INSULIN REGULAR, HUMAN 300 UNIT/3 ML VIAL SQ PRN ×3 (07:43→18:09)
[2019-06-15] MEDS: PROTEIN SUPPLEMENT (PROSTAT) 30 ML LIQUID GT SCH (08:11)
[2019-06-15] MEDS: DOCUSATE SODIUM 100 MG/10 ML LIQUID UDC GT SCH ×2 (08:11→21:25)
[2019-06-15] MEDS: AMIODARONE HCL 200 MG TABLET GT SCH (08:12)
[2019-06-15] MEDS: MIRALAX 17 GM POWD.PACK GT SCH (08:12)
[2019-06-15] MEDS: FAMOTIDINE 20 MG TABLET GT SCH (08:12)
[2019-06-15] MEDS: SIMETHICONE 80 MG TAB.CHEW GT SCH ×4 (08:12→21:28)
[2019-06-15] MEDS: METOPROLOL TARTRATE 25 MG TABLET GT SCH ×2 (08:12→21:26)
[2019-06-15] MEDS: FINASTERIDE 5 MG TABLET GT SCH (08:12)
[2019-06-15] MEDS: ZINC SULFATE 220 MG CAPSULE GT SCH (08:13)
[2019-06-15] MEDS: MULTIVITAMINS,THERAPEUTIC TABLET GT SCH (08:13)
[2019-06-15] MEDS: ASCORBIC ACID 500 MG TABLET GT SCH (08:13)
[2019-06-15] MEDS: MEROPENEM 500 MG in IV NORMAL SALINE 50 ML IV SCH ×2 (08:51→21:30)
[2019-06-15] MEDS: JEVITY 1.2 1000 ML LIQUID GT PRN (10:38)
[2019-06-15 11:23] VITALS: BP 157/86
[2019-06-15] MEDS: GLUCERNA 1.2 1000ML LIQUID GT PRN (12:50)
[2019-06-15 15:42] VITALS: BP 156/87
[2019-06-15] MEDS: ACETAMINOPHEN 325 MG TABLET GT PRN (18:12)
[2019-06-15 20:00] VITALS: BP 161/95
[2019-06-15] MEDS: MELATONIN 3 MG TABLET GT SCH (21:25)
[2019-06-15] MEDS: TAMSULOSIN HCL 0.4 MG CAP.SR.24H XX SCH (21:28)
[2019-06-15] MEDS: ALBUTEROL SULFATE 2.5 MG/3 ML NEBU NEB PRN (22:39)
[2019-06-16] MEDS: BLOOD SUGAR DIAGNOSTIC 1 EACH STRIP VI SCH ×5 (00:05→23:49)
[2019-06-16] MEDS: TEMAZEPAM 15 MG CAPSULE GT PRN ×2 (00:07→23:53)
[2019-06-16] MEDS: INSULIN REGULAR, HUMAN 300 UNIT/3 ML VIAL SQ PRN ×5 (00:09→23:51)
[2019-06-16] MEDS: methylPREDNISolone SOD SUCC 125 MG/2 ML VIAL IV SCH ×3 (05:13→21:00)
[2019-06-16] MEDS: LEVOTHYROXINE SODIUM 50 MCG TABLET GT SCH (06:24)
[2019-06-16] MEDS: ACETAMINOPHEN 325 MG TABLET GT PRN ×3 (06:24→20:52)
[2019-06-16 06:51] LABS: CARBON DIOXIDE 16 mmol/L (21-32); CHLORIDE 105 mmol/L (98-107); CREATININE 4.9 mg/dL (0.6-1.3); GLUCOSE 254 mg/dL (74-106); MAGNESIUM 2.3 mg/dL (1.8-2.4); PHOSPHOROUS 6.9 mg/dL (2.5-4.9); POTASSIUM 4.9 mmol/L (3.5-5.1)
[2019-06-16 06:52] LABS: UREA NITROGEN, BLOOD 138 mg/dL (7-18)
[2019-06-16 06:55] VITALS: BP 159/95
[2019-06-16 07:02] LABS: BASOPHILS % (AUTO) 0.1 % (0.0-2.0); HEMATOCRIT 24.2 % (36.7-47.1); HEMOGLOBIN 8.4 g/dL (12.5-16.3); LYMPHOCYTES # (AUTO) 0.3 K/uL (20.0-40.0); LYMPHOCYTES % (AUTO) 3.5 % (20.5-51.5); MEAN CORPUSCULAR HEMOGLOBIN 34.9 uug (23.8-33.4); MEAN CORPUSCULAR HGB CONC 35 g/dL (32.5-36.3); MONOCYTES # (AUTO) 0.3 K/uL (2.0-10.0); MONOCYTES % (AUTO) 3.3 % (0.0-11.0); NEUTROPHILS # (AUTO) 9.3 K/uL (1.8-8.9); NEUTROPHILS % (AUTO) 93.1 % (38.5-71.5); PLATELET COUNT (AUTO) 203 K/uL (152-348)
[2019-06-16] MEDS: AMIODARONE HCL 200 MG TABLET GT SCH (08:28)
[2019-06-16] MEDS: PROTEIN SUPPLEMENT (PROSTAT) 30 ML LIQUID GT SCH (08:28)
[2019-06-16] MEDS: DOCUSATE SODIUM 100 MG/10 ML LIQUID UDC GT SCH ×2 (08:28→20:49)
[2019-06-16] MEDS: METOPROLOL TARTRATE 25 MG TABLET GT SCH ×2 (08:29→20:51)
[2019-06-16] MEDS: FINASTERIDE 5 MG TABLET GT SCH (08:29)
[2019-06-16] MEDS: ZINC SULFATE 220 MG CAPSULE GT SCH (08:29)
[2019-06-16] MEDS: MULTIVITAMINS,THERAPEUTIC TABLET GT SCH (08:29)
[2019-06-16] MEDS: SIMETHICONE 80 MG TAB.CHEW GT SCH ×4 (08:29→20:50)
[2019-06-16] MEDS: ASCORBIC ACID 500 MG TABLET GT SCH (08:29)
[2019-06-16] MEDS: MIRALAX 17 GM POWD.PACK GT SCH (08:29)
[2019-06-16] MEDS: FAMOTIDINE 20 MG TABLET GT SCH (08:29)
[2019-06-16 08:53] LABS: ABG BASE EXCESS -8.3 mmol/L; ABG HCO3 14.5 mmol/L; ABG PCO2 24.2 mmHg (35.0-45.0); ABG PH 7.394 (7.350-7.450); ABG SITE LEFT RADIAL; ABG TOTAL HEMOGLOBIN 15.2 G/dL (13.5-18.0); COHb 1.2 % (0.5-1.5); MetHb 0.2 % (0.0-1.5); O2Hb 93.5 % (94.0-97.0); VENT MODE Nasal Cannula
[2019-06-16] MEDS: MEROPENEM 500 MG in IV NORMAL SALINE 50 ML IV SCH ×2 (09:12→20:52)
[2019-06-16 11:33] VITALS: BP 162/87
[2019-06-16] MEDS ORDERED: FUROSEMIDE 40 MG/4 ML VIAL IV ONE (15:00)
[2019-06-16 15:49] VITALS: BP 164/93
[2019-06-16] MEDS: ALBUTEROL SULFATE 2.5 MG/3 ML NEBU NEB PRN (19:51)
[2019-06-16 20:00] VITALS: BP 178/99
[2019-06-16] MEDS: TAMSULOSIN HCL 0.4 MG CAP.SR.24H XX SCH (20:49)
[2019-06-16] MEDS: MELATONIN 3 MG TABLET GT SCH (20:50)
[2019-06-16] MEDS: GLUCERNA 1.2 1000ML LIQUID GT PRN (21:15)
[2019-06-16 22:00] VITALS: BP 158/88
[2019-06-17] MEDS: MORPHINE SULFATE 2 MG/1 ML DISP.SYRIN IV PRN (02:08)
[2019-06-17 04:20] VITALS: BP 165/91
[2019-06-17] MEDS: ALBUTEROL SULFATE 2.5 MG/3 ML NEBU NEB PRN ×3 (04:33→18:00)
[2019-06-17] MEDS: methylPREDNISolone SOD SUCC 125 MG/2 ML VIAL IV SCH ×3 (05:03→21:06)
[2019-06-17] MEDS: ACETAMINOPHEN 325 MG TABLET GT PRN (05:03)
[2019-06-17] MEDS: BLOOD SUGAR DIAGNOSTIC 1 EACH STRIP VI SCH ×4 (05:12→21:21)
[2019-06-17] MEDS: INSULIN REGULAR, HUMAN 300 UNIT/3 ML VIAL SQ PRN ×4 (05:13→21:38)
[2019-06-17] MEDS: LEVOTHYROXINE SODIUM 50 MCG TABLET GT SCH (06:05)
[2019-06-17] MEDS ORDERED: DEXTROSE 50% 50 ML DISP.SYRIN IV PRN (08:30)
[2019-06-17] MEDS: SIMETHICONE 80 MG TAB.CHEW GT SCH ×4 (08:42→20:48)
[2019-06-17] MEDS: FINASTERIDE 5 MG TABLET GT SCH (08:42)
[2019-06-17] MEDS: DOCUSATE SODIUM 100 MG/10 ML LIQUID UDC GT SCH ×2 (08:43→20:48)
[2019-06-17] MEDS: FAMOTIDINE 20 MG TABLET GT SCH (08:43)
[2019-06-17] MEDS: ASPIRIN 81 MG TAB.CHEW PO SCH (08:43)
[2019-06-17] MEDS: MIRALAX 17 GM POWD.PACK GT SCH (08:43)
[2019-06-17] MEDS: METOPROLOL TARTRATE 25 MG TABLET GT SCH ×2 (08:43→20:49)
[2019-06-17] MEDS: MULTIVITAMINS,THERAPEUTIC TABLET GT SCH (08:43)
[2019-06-17] MEDS: AMIODARONE HCL 200 MG TABLET GT SCH (08:43)
[2019-06-17] MEDS: Z GUARD REMEDY PASTE 57 GM TUBE TOP PRN (08:45)
[2019-06-17] MEDS: MEROPENEM 500 MG in IV NORMAL SALINE 50 ML IV SCH ×2 (08:46→21:06)
[2019-06-17 11:20] VITALS: BP 163/95
[2019-06-17] MEDS ORDERED: FUROSEMIDE 20 MG/2 ML VIAL IV ONE (13:30)
[2019-06-17 16:01] VITALS: BP 160/70
[2019-06-17] MEDS: MELATONIN 3 MG TABLET GT SCH (20:48)
[2019-06-17] MEDS: TAMSULOSIN HCL 0.4 MG CAP.SR.24H XX SCH (20:48)
[2019-06-17] MEDS: TEMAZEPAM 15 MG CAPSULE GT PRN (22:38)
[2019-06-18] MEDS: GLUCERNA 1.2 1000ML LIQUID GT PRN (03:22)
[2019-06-18] MEDS: HYDROCODONE/APAP 5-325MG TABLET GT PRN ×2 (03:25→20:56)
[2019-06-18 05:00] VITALS: BP 156/87
[2019-06-18] MEDS: methylPREDNISolone SOD SUCC 125 MG/2 ML VIAL IV SCH ×3 (05:42→21:00)
[2019-06-18 06:01] LABS: CARBON DIOXIDE 18 mmol/L (21-32); CHLORIDE 102 mmol/L (98-107); CREATININE 4.5 mg/dL (0.6-1.3); GLUCOSE 208 mg/dL (74-106); POTASSIUM 5.7 mmol/L (3.5-5.1)
[2019-06-18 06:06] LABS: UREA NITROGEN, BLOOD 163 mg/dL (7-18)
[2019-06-18] MEDS: LEVOTHYROXINE SODIUM 50 MCG TABLET GT SCH (06:43)
[2019-06-18] MEDS ORDERED: SODIUM POLYSTYRENE SULFONATE 15 G/60 ML LIQUID UDC PO ONE ×2 (07:30→09:15)
[2019-06-18] MEDS ORDERED: DEXTROSE 50% 50 ML DISP.SYRIN IV ONE (07:30)
[2019-06-18] MEDS ORDERED: INSULIN REGULAR, HUMAN 300 UNIT/3 ML VIAL IV ONE (07:30)
[2019-06-18] MEDS: BLOOD SUGAR DIAGNOSTIC 1 EACH STRIP VI SCH ×4 (07:40→21:09)
[2019-06-18] MEDS: ALBUTEROL SULFATE 2.5 MG/3 ML NEBU NEB PRN ×4 (07:56→19:23)
[2019-06-18] MEDS ORDERED: FUROSEMIDE 20 MG/2 ML VIAL IV ONE (08:00)
[2019-06-18] MEDS: DOCUSATE SODIUM 100 MG/10 ML LIQUID UDC GT SCH ×2 (08:13→21:03)
[2019-06-18] MEDS: SIMETHICONE 80 MG TAB.CHEW GT SCH ×4 (08:14→20:56)
[2019-06-18] MEDS: FAMOTIDINE 20 MG TABLET GT SCH (08:14)
[2019-06-18] MEDS: METOPROLOL TARTRATE 25 MG TABLET GT SCH ×2 (08:14→20:56)
[2019-06-18] MEDS: ASPIRIN 81 MG TAB.CHEW PO SCH (08:15)
[2019-06-18] MEDS: AMIODARONE HCL 200 MG TABLET GT SCH (08:15)
[2019-06-18] MEDS: MULTIVITAMINS,THERAPEUTIC TABLET GT SCH (08:15)
[2019-06-18] MEDS: FINASTERIDE 5 MG TABLET GT SCH (08:15)
[2019-06-18] MEDS: MIRALAX 17 GM POWD.PACK GT SCH (08:16)
[2019-06-18] MEDS: Z GUARD REMEDY PASTE 57 GM TUBE TOP PRN (08:19)
[2019-06-18] MEDS: MEROPENEM 500 MG in IV NORMAL SALINE 50 ML IV SCH ×2 (08:25→21:12)
[2019-06-18 11:13] VITALS: BP 165/76
[2019-06-18] MEDS: INSULIN REGULAR, HUMAN 300 UNIT/3 ML VIAL SQ PRN ×3 (11:39→21:10)
[2019-06-18 15:01] LABS: CARBON DIOXIDE 17 mmol/L (21-32); CHLORIDE 100 mmol/L (98-107); CREATININE 4.5 mg/dL (0.6-1.3); GLUCOSE 273 mg/dL (74-106); POTASSIUM 5.2 mmol/L (3.5-5.1)
[2019-06-18 15:04] LABS: UREA NITROGEN, BLOOD 154 mg/dL (7-18)
[2019-06-18 16:00] VITALS: BP 172/82
[2019-06-18 19:55] VITALS: BP 182/88
[2019-06-18] MEDS: TAMSULOSIN HCL 0.4 MG CAP.SR.24H XX SCH (20:56)
[2019-06-18 21:09] VITALS: BP 167/88
[2019-06-18] MEDS: MELATONIN 3 MG TABLET GT SCH (21:39)
[2019-06-18] MEDS: TEMAZEPAM 15 MG CAPSULE GT PRN (23:21)
[2019-06-19 05:36] VITALS: BP 152/78
[2019-06-19] MEDS: LEVOTHYROXINE SODIUM 50 MCG TABLET GT SCH (06:30)
[2019-06-19] MEDS: methylPREDNISolone SOD SUCC 125 MG/2 ML VIAL IV SCH (06:30)
[2019-06-19] MEDS: BLOOD SUGAR DIAGNOSTIC 1 EACH STRIP VI SCH ×3 (06:46→16:55)
[2019-06-19 06:47] LABS: CARBON DIOXIDE 20 mmol/L (21-32); CHLORIDE 101 mmol/L (98-107); CREATININE 4.5 mg/dL (0.6-1.3); GLUCOSE 260 mg/dL (74-106); POTASSIUM 5.3 mmol/L (3.5-5.1)
[2019-06-19 06:50] LABS: UREA NITROGEN, BLOOD 165 mg/dL (7-18)
[2019-06-19] MEDS: SIMETHICONE 80 MG TAB.CHEW GT SCH ×3 (08:09→18:00)
[2019-06-19] MEDS: MULTIVITAMINS,THERAPEUTIC TABLET GT SCH (08:09)
[2019-06-19] MEDS: FINASTERIDE 5 MG TABLET GT SCH (08:09)
[2019-06-19] MEDS: DOCUSATE SODIUM 100 MG/10 ML LIQUID UDC GT SCH (08:10)
[2019-06-19] MEDS: MIRALAX 17 GM POWD.PACK GT SCH (08:10)
[2019-06-19] MEDS: FAMOTIDINE 20 MG TABLET GT SCH (08:10)
[2019-06-19] MEDS: ASPIRIN 81 MG TAB.CHEW PO SCH (08:10)
[2019-06-19] MEDS: INSULIN REGULAR, HUMAN 300 UNIT/3 ML VIAL SQ PRN ×3 (08:12→16:59)
[2019-06-19] MEDS: METOPROLOL TARTRATE 25 MG TABLET GT SCH (08:13)
[2019-06-19] MEDS: AMIODARONE HCL 200 MG TABLET GT SCH (08:13)
[2019-06-19] MEDS: MEROPENEM 500 MG in IV NORMAL SALINE 50 ML IV SCH (08:19)
[2019-06-19] MEDS ORDERED: AMLODIPINE 5 MG TABLET PO SCH (09:15)
[2019-06-19] MEDS ORDERED: predniSONE 20 MG TABLET PO SCH (09:45)
[2019-06-19] MEDS: HYDROCODONE/APAP 5-325MG TABLET GT PRN (11:15)
[2019-06-19] MEDS: GLUCERNA 1.2 1000ML LIQUID GT PRN (11:15)
[2019-06-19 11:40] VITALS: BP 160/91
[2019-06-19 15:59] VITALS: BP 161/85
[2019-06-19] MEDS: MORPHINE SULFATE 2 MG/1 ML DISP.SYRIN IV PRN (16:58)
[2019-06-19 19:42] VITALS: BP 168/89
[2019-06-19] MEDS ORDERED: hydrALAZINE HCL 20 MG/1 ML VIAL IV ONE (19:45)
[2019-06-19] MEDS ORDERED: METOPROLOL TARTRATE 50 MG TABLET GT SCH (21:00)
[2019-06-19] MEDS ORDERED: METOPROLOL TARTRATE 25 MG TABLET GT SCH (21:00)
== END 2019-06-19 21:13 | DRG 698 ==
LOC: ER 10:46 → TELE3 17:13 → MEDSURG3 06-09 16:40
PROVIDERS: ADMIT Nurse Practitioner Acute Care; ATTEND Nurse Practitioner Acute Care
PROC: 30233N1 Transfusion of Nonautologous Red Blood Cells into Peripheral Vein, Percutaneous Approach (ICD-10-PCS; principal; 2019-06-08)
PROC: 0DJ08ZZ Inspection of Upper Intestinal Tract, Via Natural or Artificial Opening Endoscopic (ICD-10-PCS; 2019-06-12)
PROC: 0TB13ZX Excision of Left Kidney, Percutaneous Approach, Diagnostic (ICD-10-PCS; 2019-06-14)
DX: N00-N99 Diseases of the genitourinary system (principal); E43 Unspecified severe protein-calorie malnutrition; J15.6 Pneumonia due to other Gram-negative bacteria; I50.31 Acute diastolic (congestive) heart failure; D68.59 Other primary thrombophilia; E87.1 Hypo-osmolality and hyponatremia; I13.2 Hypertensive heart and chronic kidney disease with heart failure and with stage 5 chronic kidney disease, or end stage renal disease; J98.11 Atelectasis; E44.0 Moderate protein-calorie malnutrition; N17.0 Acute kidney failure with tubular necrosis; D53.9 Nutritional anemia, unspecified; D63.1 Anemia in chronic kidney disease; Z68.23 Body mass index [BMI] 23.0-23.9, adult; K44.9 Diaphragmatic hernia without obstruction or gangrene; K21.9 Gastro-esophageal reflux disease without esophagitis; E87.5 Hyperkalemia; I25.10 Atherosclerotic heart disease of native coronary artery without angina pectoris; Z95.1 Presence of aortocoronary bypass graft; E11.22 Type 2 diabetes mellitus with diabetic chronic kidney disease; N18.9 Chronic kidney disease, unspecified; E03.9 Hypothyroidism, unspecified; Z95.820 Peripheral vascular angioplasty status with implants and grafts; E11.65 Type 2 diabetes mellitus with hyperglycemia; Z79.84 Long term (current) use of oral hypoglycemic drugs; E11.51 Type 2 diabetes mellitus with diabetic peripheral angiopathy without gangrene; E78.5 Hyperlipidemia, unspecified; E83.42 Hypomagnesemia; E83.39 Other disorders of phosphorus metabolism; I48.0 Paroxysmal atrial fibrillation; K27.9 Peptic ulcer, site unspecified, unspecified as acute or chronic, without hemorrhage or perforation; M46.05 Spinal enthesopathy, thoracolumbar region; M51.37 Other intervertebral disc degeneration, lumbosacral region; M19.90 Unspecified osteoarthritis, unspecified site; N40.0 Benign prostatic hyperplasia without lower urinary tract symptoms; Z90.49 Acquired absence of other specified parts of digestive tract; Z90.3 Acquired absence of stomach [part of]; Z93.1 Gastrostomy status; Z95.5 Presence of coronary angioplasty implant and graft; Z96.641 Presence of right artificial hip joint; Z79.899 Other long term (current) drug therapy; Y95 Nosocomial condition; R13.10 Dysphagia, unspecified; I70.0 Atherosclerosis of aorta; I44.0 Atrioventricular block, first degree; Z86.73 Personal history of transient ischemic attack (TIA), and cerebral infarction without residual deficits; Z79.82 Long term (current) use of aspirin; K29.70 Gastritis, unspecified, without bleeding
CPT/HCPCS: 36415; 36600; 43235; 70030-TC; 71045; 74018; 74150; 76942; 83550; 83735; 83970; 84100; 84155; 84156; 84165; 84300; 84443; 85025; 85610; 85651; 85730; 86038; 86160; 86706; 86803; 86850; 86900; 86901; 86920; 87040; 87086; 87340; 93005; 94640; 94664; A4217; A4663; A9150; G0378; J0360; J0696; J1815; J1940; J2185; J2250; J2270; J2405; J2930; J3010; J3475; J3490; J7030; J7040; J7050; J7060; J7512; P9016-BL; P9021; Q0163

== ENCOUNTER 2019-06-23 19:06 | Inpatient (IN) | payer MEDICARE, OTHER ==
[~2019-06-23] VITALS: Ht 172.7 cm; Wt 73.9 kg
[~2019-06-23 19:06] MED LIST changes: +LEVO50TA8 GT
[2019-06-23] MEDS ORDERED: ONDANSETRON 4 MG/2 ML VIAL IV ONE (19:45)
[2019-06-23] MEDS ORDERED: MORPHINE SULFATE 2 MG/1 ML DISP.SYRIN IV ONE ×2 (19:45→21:45)
[2019-06-23] MEDS ORDERED: MORPHINE SULFATE 2 MG/1 ML DISP.SYRIN ONE ×2 (19:50→20:08)
[2019-06-23] MEDS ORDERED: ONDANSETRON 4 MG/2 ML VIAL ONE (19:50)
[2019-06-23 20:23] LABS: BASOPHILS % (AUTO) 0.1 % (0.0-2.0); EOSINOPHILS # (AUTO) 0.4 K/uL (0.0-0.7); EOSINOPHILS % (AUTO) 3.4 % (0.0-7.0); HEMATOCRIT 25.4 % (36.7-47.1); HEMOGLOBIN 8.5 g/dL (12.5-16.3); LYMPHOCYTES # (AUTO) 0.6 K/uL (20.0-40.0); LYMPHOCYTES % (AUTO) 4.8 % (20.5-51.5); MEAN CORPUSCULAR HEMOGLOBIN 33.7 uug (23.8-33.4); MEAN CORPUSCULAR HGB CONC 34 g/dL (32.5-36.3); MEAN CORPUSCULAR VOLUME 100.3 fL (73.0-96.2); MONOCYTES # (AUTO) 1.1 K/uL (2.0-10.0); MONOCYTES % (AUTO) 8.3 % (0.0-11.0); NEUTROPHILS # (AUTO) 10.9 K/uL (1.8-8.9); NEUTROPHILS % (AUTO) 83.4 % (38.5-71.5); PLATELET COUNT (AUTO) 189 K/uL (152-348); RED BLOOD CELL COUNT(AUTO) 2.54 MIL/uL (4.06-5.63)
[2019-06-23 20:27] LABS: CARBON DIOXIDE 24 mmol/L (21-32); CHLORIDE 103 mmol/L (98-107); CREATININE 3.8 mg/dL (0.6-1.3); GLUCOSE 181 mg/dL (74-106); POTASSIUM 5.1 mmol/L (3.5-5.1)
[2019-06-23 20:31] LABS: UREA NITROGEN, BLOOD 114 mg/dL (7-18)
[2019-06-23 20:33] LABS: ALANINE AMINOTRANSFERASE 22 U/L (16-63); ALKALINE PHOSPHATASE 83 U/L (50-136); ASPARTATE AMINOTRANSFERASE 29 U/L (15-37); BILIRUBIN,DIRECT 0.2 mg/dL (0.0-0.2); BILIRUBIN,TOTAL 0.5 mg/dL (0.2-1.0); LIPASE 248 U/L (73-393)
[2019-06-23] MEDS ORDERED: DICL100G16 TP (21:23)
[2019-06-23] MEDS ORDERED: TAMS-3 GT (21:23)
[2019-06-23] MEDS ORDERED: NA P133E4 RC (21:23)
[2019-06-23 21:48] LABS: *BILIRUBIN,URIN NEGATIVE (NEGATIVE); *BLOOD, URINE 3+ (NEGATIVE); *CLARITY,URINE CLOUDY (CLEAR); *COLOR,URINE YELLOW (YELLOW); *KETONES,URINE NEGATIVE (NEGATIVE); *UROBILINOGEN,URINE 0.2 E.U./dl (NORMAL); LEUKOCYTE ESTERASE ,URINE 1+ (NEGATIVE); NITRITE, URINE NEGATIVE (NEGATIVE); UGLUCOSE NEGATIVE (NEGATIVE)
[2019-06-23 21:58] LABS: BACTERIA,URINE FEW /HPF (NONE SEEN); RBC,URINE TNTC /HPF (0-3); SQUAMOUS EPITHELIAL CELL,UR FEW /HPF (NONE SEEN); WBC,URINE 50-80 /HPF (0-3)
[2019-06-23] MEDS ORDERED: LORAZEPAM 2 MG/1 ML VIAL ONE (22:40)
[2019-06-23] MEDS ORDERED: LORAZEPAM 2 MG/1 ML VIAL IV ONE (22:45)
[2019-06-23] MEDS ORDERED: CEFTRIAXONE 1 G in IV DEXTROSE 5% 50 ML IV ONE (23:00)
[2019-06-23] MEDS ORDERED: CEFTRIAXONE /D5W 50ML IVPB **ER PYXIS IV ONE (23:09)
[2019-06-24 02:40] VITALS: BP 150/68
[2019-06-24] MEDS ORDERED: ALBUTEROL SULFATE 2.5 MG/3 ML NEBU NEB SCH ×2 (03:00→07:35)
[2019-06-24] MEDS ORDERED: ONDANSETRON HCL 4 MG TABLET GT PRN (03:00)
[2019-06-24] MEDS ORDERED: ALBUMIN HUMAN 25% 25 GM in PREMIXED 1 EACH IV SCH (03:00)
[2019-06-24] MEDS ORDERED: TRAMADOL HCL 50 MG TABLET GT PRN (03:00)
[2019-06-24] MEDS ORDERED: FLEET ENEMA 133 ML BOTTLE RC PRN (03:00)
[2019-06-24] MEDS ORDERED: IPRATROPIUM BROMIDE 0.5 MG/2.5 ML NEBU IH PRN (03:00)
[2019-06-24] MEDS ORDERED: Z GUARD REMEDY PASTE 57 GM TUBE TOP PRN (03:00)
[2019-06-24] MEDS ORDERED: BISACODYL 10 MG SUPP.RECT RC PRN (03:00)
[2019-06-24] MEDS ORDERED: VANCOMYCIN IV 750 MG in IV DEXTROSE 5% 250 ML IV SCH (03:30)
[2019-06-24] MEDS ORDERED: VANCOMYCIN 1000 MG VIAL ONE (05:10)
[2019-06-24] MEDS ORDERED: MEROPENEM 500 MG VIAL IV ONE (05:11)
[2019-06-24] MEDS ORDERED: ALBUMIN HUMAN 25% 50 ML ONE (05:11)
[2019-06-24] MEDS: MEROPENEM 500 MG in IV NORMAL SALINE 50 ML IV SCH ×2 (05:24→16:35)
[2019-06-24 05:41] VITALS: BP 155/89
[2019-06-24] MEDS: PANTOPRAZOLE ORAL SUSPENSION 40 MG SUSPDR.PKT GT SCH (07:20)
[2019-06-24] MEDS: LEVOTHYROXINE SODIUM 50 MCG TABLET GT SCH (07:20)
[2019-06-24 07:58] LABS: CARBON DIOXIDE 22 mmol/L (21-32); CHLORIDE 104 mmol/L (98-107); GLUCOSE 129 mg/dL (74-106); MAGNESIUM 1.7 mg/dL (1.8-2.4); PHOSPHOROUS 6.2 mg/dL (2.5-4.9); POTASSIUM 5.1 mmol/L (3.5-5.1)
[2019-06-24 08:00] LABS: UREA NITROGEN, BLOOD 111 mg/dL (7-18)
[2019-06-24] MEDS: [UNRECOGNIZED DRUG - OTHER] GT SCH ×2 (08:00→16:08)
[2019-06-24] MEDS: SIMETHICONE 80 MG TAB.CHEW GT SCH ×4 (08:22→20:04)
[2019-06-24] MEDS: AMIODARONE HCL 200 MG TABLET GT SCH (08:22)
[2019-06-24] MEDS: LINAGLIPTIN 5 MG TABLET GT SCH (08:22)
[2019-06-24] MEDS: METOPROLOL TARTRATE 25 MG TABLET GT SCH ×2 (08:22→20:04)
[2019-06-24] MEDS: FINASTERIDE 5 MG TABLET GT SCH (08:22)
[2019-06-24] MEDS: FERROUS SULFATE 325 MG TABEC PO SCH ×2 (08:22→16:12)
[2019-06-24] MEDS: HEPARIN SODIUM,PORCINE 5,000 UNITS/ML VIAL SQ SCH ×2 (08:23→20:35)
[2019-06-24] MEDS: ALBUMIN HUMAN 25% 25 GM in PREMIXED 1 EACH IV SCH ×3 (08:49→20:19)
[2019-06-24] MEDS ORDERED: ZINC SULFATE 220 MG CAPSULE GT SCH (09:00)
[2019-06-24] MEDS ORDERED: ASCORBIC ACID 500 MG TABLET GT SCH (09:00)
[2019-06-24 09:11] LABS: BASOPHILS % (AUTO) 0.1 % (0.0-2.0); EOSINOPHILS # (AUTO) 0.5 K/uL (0.0-0.7); EOSINOPHILS % (AUTO) 3.8 % (0.0-7.0); HEMATOCRIT 25.9 % (36.7-47.1); HEMOGLOBIN 8.8 g/dL (12.5-16.3); LYMPHOCYTES # (AUTO) 0.9 K/uL (20.0-40.0); MEAN CORPUSCULAR HEMOGLOBIN 34.1 uug (23.8-33.4); MEAN CORPUSCULAR HGB CONC 34 g/dL (32.5-36.3); MEAN CORPUSCULAR VOLUME 100.2 fL (73.0-96.2); MONOCYTES # (AUTO) 1.2 K/uL (2.0-10.0); NEUTROPHILS # (AUTO) 11.9 K/uL (1.8-8.9); NEUTROPHILS % (AUTO) 82.1 % (38.5-71.5); PLATELET COUNT (AUTO) 207 K/uL (152-348); RED BLOOD CELL COUNT(AUTO) 2.59 MIL/uL (4.06-5.63); WHITE BLOOD COUNT (AUTO) 14.5 K/uL (3.6-10.2)
[2019-06-24] MEDS ORDERED: PIPERACILLIN/TAZO 2.25 G in IV DEXTROSE 5% 50 ML IV SCH (10:45)
[2019-06-24 11:52] VITALS: BP 137/74
[2019-06-24] MEDS ORDERED: methylPREDNISolone SOD SUCC 40 MG/ML VIAL IV SCH (14:30)
[2019-06-24] MEDS: methylPREDNISolone SOD SUCC 125 MG/2 ML VIAL IV SCH (14:36)
[2019-06-24] MEDS: TRAMADOL HCL 50 MG TABLET GT PRN (16:34)
[2019-06-24 16:38] VITALS: BP 160/82
[2019-06-24] MEDS: SEVELAMER CARBONATE 800 MG TABLET PO SCH (17:07)
[2019-06-24] MEDS ORDERED: CLONIDINE-TTS 1 PATCH TD SCH (19:45)
[2019-06-24] MEDS: ONDANSETRON 4 MG/2 ML VIAL IV PRN (20:00)
[2019-06-24] MEDS: TAMSULOSIN HCL 0.4 MG CAP.SR.24H XX SCH (20:04)
[2019-06-24] MEDS: MELATONIN 3 MG TABLET GT SCH (20:04)
[2019-06-24 20:32] VITALS: BP 164/84
[2019-06-24] MEDS ORDERED: CLONIDINE-TTS 1 PATCH TD ONE (21:02)
[2019-06-24] MEDS ORDERED: AMIODARONE HCL 150 MG/3 ML VIAL IV ONE (22:31)
[2019-06-24] MEDS: TEMAZEPAM 15 MG CAPSULE GT PRN (22:34)
[2019-06-24] MEDS: AMIODARONE HCL IV 900 MG in IV DEXTROSE 5% 482 ML IV PRN (23:12)
[2019-06-25 00:28] VITALS: BP 139/73
[2019-06-25] MEDS: ALBUMIN HUMAN 25% 25 GM in PREMIXED 1 EACH IV SCH (01:38)
[2019-06-25 04:43] VITALS: BP 137/80
[2019-06-25] MEDS: MEROPENEM 500 MG in IV NORMAL SALINE 50 ML IV SCH ×4 (04:59→21:48)
[2019-06-25] MEDS: LEVOTHYROXINE SODIUM 50 MCG TABLET GT SCH (05:24)
[2019-06-25] MEDS: PANTOPRAZOLE ORAL SUSPENSION 40 MG SUSPDR.PKT GT SCH (06:07)
[2019-06-25 07:24] LABS: VANCOMYCIN,RANDOM 8.3 ug/mL (18.0-26.0)
[2019-06-25 07:56] VITALS: BP 162/91
[2019-06-25] MEDS: LINAGLIPTIN 5 MG TABLET GT SCH (09:48)
[2019-06-25] MEDS: SIMETHICONE 80 MG TAB.CHEW GT SCH ×4 (09:48→20:20)
[2019-06-25] MEDS: METOPROLOL TARTRATE 25 MG TABLET GT SCH ×2 (09:48→20:20)
[2019-06-25] MEDS: FINASTERIDE 5 MG TABLET GT SCH (09:48)
[2019-06-25] MEDS: FERROUS SULFATE 325 MG TABEC PO SCH ×2 (09:49→16:33)
[2019-06-25] MEDS: AMIODARONE HCL 200 MG TABLET GT SCH ×2 (09:49→20:24)
[2019-06-25] MEDS: methylPREDNISolone SOD SUCC 125 MG/2 ML VIAL IV SCH (09:50)
[2019-06-25] MEDS: HEPARIN SODIUM,PORCINE 5,000 UNITS/ML VIAL SQ SCH ×2 (09:50→20:22)
[2019-06-25] MEDS: [UNRECOGNIZED DRUG - OTHER] GT SCH ×2 (09:51→16:33)
[2019-06-25] MEDS: SEVELAMER CARBONATE 800 MG TABLET PO SCH ×3 (09:54→16:33)
[2019-06-25] MEDS ORDERED: VANCOMYCIN IV 1,000 MG in IV DEXTROSE 5% 250 ML IV ONE (10:00)
[2019-06-25 11:43] VITALS: BP 145/82
[2019-06-25] MEDS: ALBUTEROL SULFATE 2.5 MG/3 ML NEBU NEB PRN (14:02)
[2019-06-25] MEDS: IPRATROPIUM BROMIDE 0.5 MG/2.5 ML NEBU NEB PRN (14:02)
[2019-06-25 14:34] LABS: BASOPHILS % (AUTO) 0.2 % (0.0-2.0); EOSINOPHILS % (AUTO) 0.1 % (0.0-7.0); HEMATOCRIT 23.5 % (36.7-47.1); HEMOGLOBIN 7.9 g/dL (12.5-16.3); LYMPHOCYTES # (AUTO) 0.4 K/uL (20.0-40.0); LYMPHOCYTES % (AUTO) 3.6 % (20.5-51.5); MEAN CORPUSCULAR HEMOGLOBIN 34.3 uug (23.8-33.4); MEAN CORPUSCULAR HGB CONC 34 g/dL (32.5-36.3); MEAN CORPUSCULAR VOLUME 101.5 fL (73.0-96.2); MONOCYTES # (AUTO) 0.2 K/uL (2.0-10.0); MONOCYTES % (AUTO) 2.1 % (0.0-11.0); NEUTROPHILS # (AUTO) 9.9 K/uL (1.8-8.9); PLATELET COUNT (AUTO) 199 K/uL (152-348); WHITE BLOOD COUNT (AUTO) 10.5 K/uL (3.6-10.2)
[2019-06-25 14:36] LABS: ALANINE AMINOTRANSFERASE 20 U/L (16-63); ALKALINE PHOSPHATASE 88 U/L (50-136); ASPARTATE AMINOTRANSFERASE 27 U/L (15-37); BILIRUBIN,TOTAL 0.9 mg/dL (0.2-1.0); CARBON DIOXIDE 19 mmol/L (21-32); CHLORIDE 102 mmol/L (98-107); CREATININE 4.6 mg/dL (0.6-1.3); GLUCOSE 226 mg/dL (74-106); POTASSIUM 5.9 mmol/L (3.5-5.1); TOTAL PROTEIN, SERUM 6.8 g/dL (6.4-8.2)
[2019-06-25 14:55] LABS: PHOSPHOROUS 8.5 mg/dL (2.5-4.9); UREA NITROGEN, BLOOD 122 mg/dL (7-18)
[2019-06-25 14:56] LABS: RED BLOOD CELL COUNT(AUTO) 2.32 MIL/uL (4.06-5.63)
[2019-06-25] MEDS: AMIODARONE HCL IV 900 MG in IV DEXTROSE 5% 482 ML IV PRN (15:22)
[2019-06-25 15:28] VITALS: BP 154/88
[2019-06-25] MEDS: NEPRO 1000 ML GT PRN (20:15)
[2019-06-25] MEDS: MELATONIN 3 MG TABLET GT SCH (20:20)
[2019-06-25] MEDS: TAMSULOSIN HCL 0.4 MG CAP.SR.24H XX SCH (20:20)
[2019-06-25 20:25] VITALS: BP 149/81
[2019-06-26] VITALS (22 sets, daily range): BP systolic 138–178; BP diastolic 73–121
[2019-06-26] MEDS: MEROPENEM 500 MG in IV NORMAL SALINE 50 ML IV SCH ×3 (05:00→21:20)
[2019-06-26] MEDS: PANTOPRAZOLE ORAL SUSPENSION 40 MG SUSPDR.PKT GT SCH (06:21)
[2019-06-26] MEDS: LEVOTHYROXINE SODIUM 50 MCG TABLET GT SCH (06:21)
[2019-06-26 06:38] LABS: BASOPHILS % (AUTO) 0.1 % (0.0-2.0); LYMPHOCYTES # (AUTO) 0.3 K/uL (20.0-40.0); LYMPHOCYTES % (AUTO) 3.3 % (20.5-51.5); MEAN CORPUSCULAR HEMOGLOBIN 34.4 uug (23.8-33.4); MEAN CORPUSCULAR HGB CONC 34 g/dL (32.5-36.3); MEAN CORPUSCULAR VOLUME 101.7 fL (73.0-96.2); MONOCYTES # (AUTO) 0.4 K/uL (2.0-10.0); MONOCYTES % (AUTO) 3.8 % (0.0-11.0); NEUTROPHILS # (AUTO) 9.5 K/uL (1.8-8.9); NEUTROPHILS % (AUTO) 92.8 % (38.5-71.5); PLATELET COUNT (AUTO) 201 K/uL (152-348); WHITE BLOOD COUNT (AUTO) 10.2 K/uL (3.6-10.2)
[2019-06-26 06:49] LABS: ALANINE AMINOTRANSFERASE 30 U/L (16-63); ALKALINE PHOSPHATASE 118 U/L (50-136); ASPARTATE AMINOTRANSFERASE 35 U/L (15-37); BILIRUBIN,TOTAL 0.6 mg/dL (0.2-1.0); CARBON DIOXIDE 19 mmol/L (21-32); CHLORIDE 101 mmol/L (98-107); GLUCOSE 292 mg/dL (74-106); POTASSIUM 5.8 mmol/L (3.5-5.1); TOTAL PROTEIN, SERUM 6.7 g/dL (6.4-8.2)
[2019-06-26 06:56] LABS: HEMOGLOBIN 7.2 g/dL (12.5-16.3)
[2019-06-26 06:57] LABS: HEMATOCRIT 21.3 % (36.7-47.1)
[2019-06-26 07:00] LABS: PHOSPHOROUS 8.9 mg/dL (2.5-4.9); UREA NITROGEN, BLOOD 136 mg/dL (7-18)
[2019-06-26] MEDS ORDERED: [UNRECOGNIZED DRUG - OTHER] GT SCH (08:00)
[2019-06-26] MEDS: MORPHINE SULFATE 2 MG/1 ML DISP.SYRIN IV PRN ×5 (09:00→23:54)
[2019-06-26] MEDS: FINASTERIDE 5 MG TABLET GT SCH (09:16)
[2019-06-26] MEDS: METOPROLOL TARTRATE 25 MG TABLET GT SCH ×2 (09:17→21:18)
[2019-06-26] MEDS: AMIODARONE HCL 200 MG TABLET GT SCH (09:17)
[2019-06-26] MEDS: methylPREDNISolone SOD SUCC 125 MG/2 ML VIAL IV SCH (09:18)
[2019-06-26] MEDS: FERROUS SULFATE 325 MG TABEC PO SCH (09:30)
[2019-06-26] MEDS: SEVELAMER CARBONATE 800 MG TABLET PO SCH ×3 (09:30→16:45)
[2019-06-26] MEDS: LINAGLIPTIN 5 MG TABLET GT SCH (09:30)
[2019-06-26] MEDS: SIMETHICONE 80 MG TAB.CHEW GT SCH ×4 (09:30→21:19)
[2019-06-26] MEDS ORDERED: EPOETIN ALFA 20,000 UNIT/ML ML SQ ONE (13:00)
[2019-06-26] MEDS ORDERED: SODIUM POLYSTYRENE SULFONATE 15 G/60 ML LIQUID UDC PO ONE (13:00)
[2019-06-26] MEDS: ONDANSETRON 4 MG/2 ML VIAL IV PRN (13:34)
[2019-06-26] MEDS ORDERED: BUMETANIDE INJ 3 MG in IV DEXTROSE 5% 48 ML IV ONE (14:00)
[2019-06-26] MEDS: FERROUS SULFATE 300 MG/5 ML LIQUID UDC PO SCH (17:00)
[2019-06-26] MEDS: IV NORMAL SALINE 250 ML IV PRN (17:25)
[2019-06-26] MEDS: hydrALAZINE HCL 20 MG/1 ML VIAL IV PRN ×2 (18:41→22:22)
[2019-06-26] MEDS: TAMSULOSIN HCL 0.4 MG CAP.SR.24H XX SCH (21:18)
[2019-06-26] MEDS: MELATONIN 3 MG TABLET GT SCH (21:19)
[2019-06-27] VITALS (24 sets, daily range): BP systolic 131–169; BP diastolic 74–93
[2019-06-27] MEDS ORDERED: MORPHINE SULFATE 2 MG/1 ML DISP.SYRIN ONE (02:49)
[2019-06-27] MEDS: ONDANSETRON 4 MG/2 ML VIAL IV PRN ×2 (02:55→13:04)
[2019-06-27] MEDS: IV NORMAL SALINE 250 ML IV PRN (03:47)
[2019-06-27] MEDS: MORPHINE SULFATE 2 MG/1 ML DISP.SYRIN IV PRN ×4 (03:48→20:05)
[2019-06-27 05:13] LABS: BASOPHILS % (AUTO) 0.3 % (0.0-2.0); HEMATOCRIT 27.4 % (36.7-47.1); HEMOGLOBIN 9.1 g/dL (12.5-16.3); LYMPHOCYTES # (AUTO) 0.4 K/uL (20.0-40.0); LYMPHOCYTES % (AUTO) 3.1 % (20.5-51.5); MEAN CORPUSCULAR HEMOGLOBIN 31.7 uug (23.8-33.4); MEAN CORPUSCULAR HGB CONC 33 g/dL (32.5-36.3); MEAN CORPUSCULAR VOLUME 95.5 fL (73.0-96.2); MONOCYTES # (AUTO) 0.6 K/uL (2.0-10.0); MONOCYTES % (AUTO) 4.5 % (0.0-11.0); NEUTROPHILS # (AUTO) 12.3 K/uL (1.8-8.9); NEUTROPHILS % (AUTO) 92.1 % (38.5-71.5); PLATELET COUNT (AUTO) 256 K/uL (152-348); RED BLOOD CELL COUNT(AUTO) 2.87 MIL/uL (4.06-5.63); WHITE BLOOD COUNT (AUTO) 13.4 K/uL (3.6-10.2)
[2019-06-27 05:20] LABS: CARBON DIOXIDE 22 mmol/L (21-32); CHLORIDE 102 mmol/L (98-107); CREATININE 5.1 mg/dL (0.6-1.3); MAGNESIUM 2.2 mg/dL (1.8-2.4); POTASSIUM 5.3 mmol/L (3.5-5.1); VANCOMYCIN,RANDOM 17.5 ug/mL (18.0-26.0)
[2019-06-27 05:34] LABS: GLUCOSE 321 mg/dL (74-106); PHOSPHOROUS 9.1 mg/dL (2.5-4.9); UREA NITROGEN, BLOOD 147 mg/dL (7-18)
[2019-06-27] MEDS: hydrALAZINE HCL 20 MG/1 ML VIAL IV PRN ×2 (06:27→15:14)
[2019-06-27 08:05] LABS: ABG BASE EXCESS -5.7 mmol/L; ABG HCO3 17.7 mmol/L; ABG PCO2 27.3 mmHg (35.0-45.0); ABG PH 7.429 (7.350-7.450); ABG PO2 63.9 mmHg (75.0-100.0); ABG SITE RIGHT BRACHIAL; ABG TOTAL HEMOGLOBIN 8.9 G/dL (13.5-18.0); COHb 1.9 % (0.5-1.5); MetHb 0.5 % (0.0-1.5); O2Hb 89.4 % (94.0-97.0); VENT MODE Nasal Cannula
[2019-06-27] MEDS: FINASTERIDE 5 MG TABLET GT SCH (08:22)
[2019-06-27] MEDS: AMIODARONE HCL 200 MG TABLET GT SCH (08:22)
[2019-06-27] MEDS: FERROUS SULFATE 300 MG/5 ML LIQUID UDC PO SCH ×2 (08:22→17:13)
[2019-06-27] MEDS: PANTOPRAZOLE SODIUM 40 MG VIAL IV SCH (08:23)
[2019-06-27] MEDS: methylPREDNISolone SOD SUCC 125 MG/2 ML VIAL IV SCH (08:23)
[2019-06-27] MEDS: LINAGLIPTIN 5 MG TABLET GT SCH (08:32)
[2019-06-27] MEDS: SEVELAMER CARBONATE 800 MG TABLET PO SCH ×3 (08:32→17:12)
[2019-06-27] MEDS: SIMETHICONE 80 MG TAB.CHEW GT SCH ×4 (08:33→20:11)
[2019-06-27] MEDS ORDERED: LEVOTHYROXINE SODIUM 100 MCG VIAL IV SCH (09:00)
[2019-06-27] MEDS: MEROPENEM 500 MG in IV NORMAL SALINE 50 ML IV SCH ×2 (09:08→21:36)
[2019-06-27] MEDS: METOPROLOL TARTRATE 25 MG TABLET GT SCH ×2 (09:17→20:11)
[2019-06-27] MEDS ORDERED: LEVOTHYROXINE SODIUM 100 MCG VIAL IV ONE (11:00)
[2019-06-27] MEDS ORDERED: BISACODYL 10 MG SUPP.RECT RC ONE (11:30)
[2019-06-27] MEDS ORDERED: MAGNESIUM HYDROXIDE 30 ML LIQUID UDC PO ONE (11:30)
[2019-06-27] MEDS ORDERED: FUROSEMIDE 40 MG/4 ML VIAL IV ONE (13:15)
[2019-06-27] MEDS: IPRATROPIUM BROMIDE 0.5 MG/2.5 ML NEBU NEB PRN (13:28)
[2019-06-27] MEDS: ALBUTEROL SULFATE 2.5 MG/3 ML NEBU NEB PRN (13:28)
[2019-06-27] MEDS: AMLODIPINE 5 MG TABLET PO SCH (13:36)
[2019-06-27] MEDS ORDERED: HEPARIN SODIUM,PORCINE 10,000 UNITS/10 ML VIAL INJ PRN (17:00)
[2019-06-27] MEDS: TAMSULOSIN HCL 0.4 MG CAP.SR.24H XX SCH (20:10)
[2019-06-27] MEDS: MELATONIN 3 MG TABLET GT SCH (20:11)
[2019-06-28] VITALS (24 sets, daily range): BP systolic 125–160; BP diastolic 70–89
[2019-06-28] MEDS: TEMAZEPAM 15 MG CAPSULE GT PRN ×2 (00:32→21:45)
[2019-06-28] MEDS: MORPHINE SULFATE 2 MG/1 ML DISP.SYRIN IV PRN ×5 (00:33→18:28)
[2019-06-28] MEDS: IV NORMAL SALINE 250 ML IV PRN (04:40)
[2019-06-28 05:08] LABS: BASOPHILS % (AUTO) 0.3 % (0.0-2.0); HEMATOCRIT 25.2 % (36.7-47.1); HEMOGLOBIN 8.5 g/dL (12.5-16.3); LYMPHOCYTES # (AUTO) 0.4 K/uL (20.0-40.0); LYMPHOCYTES % (AUTO) 2.8 % (20.5-51.5); MEAN CORPUSCULAR HEMOGLOBIN 32.1 uug (23.8-33.4); MEAN CORPUSCULAR HGB CONC 34 g/dL (32.5-36.3); MEAN CORPUSCULAR VOLUME 94.8 fL (73.0-96.2); MONOCYTES # (AUTO) 0.7 K/uL (2.0-10.0); NEUTROPHILS % (AUTO) 91.9 % (38.5-71.5); PLATELET COUNT (AUTO) 186 K/uL (152-348); RED BLOOD CELL COUNT(AUTO) 2.66 MIL/uL (4.06-5.63); WHITE BLOOD COUNT (AUTO) 13.1 K/uL (3.6-10.2)
[2019-06-28 05:14] LABS: CARBON DIOXIDE 25 mmol/L (21-32); CHLORIDE 106 mmol/L (98-107); CREATININE 4.3 mg/dL (0.6-1.3); GLUCOSE 208 mg/dL (74-106); MAGNESIUM 2.3 mg/dL (1.8-2.4); PHOSPHOROUS 7.3 mg/dL (2.5-4.9); POTASSIUM 5.1 mmol/L (3.5-5.1)
[2019-06-28 05:17] LABS: UREA NITROGEN, BLOOD 117 mg/dL (7-18)
[2019-06-28] MEDS: SEVELAMER CARBONATE 800 MG TABLET PO SCH ×3 (08:00→17:30)
[2019-06-28] MEDS: PANTOPRAZOLE SODIUM 40 MG VIAL IV SCH (08:04)
[2019-06-28] MEDS: methylPREDNISolone SOD SUCC 125 MG/2 ML VIAL IV SCH (08:05)
[2019-06-28] MEDS: FINASTERIDE 5 MG TABLET GT SCH (08:05)
[2019-06-28] MEDS: AMLODIPINE 5 MG TABLET PO SCH (08:05)
[2019-06-28] MEDS: FERROUS SULFATE 300 MG/5 ML LIQUID UDC PO SCH ×2 (08:05→17:31)
[2019-06-28] MEDS: AMIODARONE HCL 200 MG TABLET GT SCH (08:06)
[2019-06-28] MEDS: SIMETHICONE 80 MG TAB.CHEW GT SCH ×4 (08:09→20:29)
[2019-06-28] MEDS: LINAGLIPTIN 5 MG TABLET GT SCH (08:10)
[2019-06-28] MEDS: METOPROLOL TARTRATE 50 MG TABLET PO SCH ×2 (08:27→20:29)
[2019-06-28] MEDS: MEROPENEM 500 MG in IV NORMAL SALINE 50 ML IV SCH ×2 (08:32→20:30)
[2019-06-28] MEDS: ONDANSETRON 4 MG/2 ML VIAL IV PRN ×2 (09:35→22:58)
[2019-06-28] MEDS: NEPRO 1000 ML GT PRN (09:47)
[2019-06-28] MEDS ORDERED: LEVOTHYROXINE SODIUM 100 MCG VIAL IV SCH (11:00)
[2019-06-28] MEDS ORDERED: LEVOTHYROXINE SODIUM 100 MCG VIAL IV ONE (11:00)
[2019-06-28] MEDS: TRAMADOL HCL 50 MG TABLET GT PRN (12:28)
[2019-06-28] MEDS ORDERED: MAGNESIUM HYDROXIDE 30 ML LIQUID UDC PO ONE (15:00)
[2019-06-28] MEDS ORDERED: EPOETIN ALFA 20,000 UNIT/ML ML SQ ONE (17:00)
[2019-06-28] MEDS: TAMSULOSIN HCL 0.4 MG CAP.SR.24H XX SCH (20:28)
[2019-06-28] MEDS: MELATONIN 3 MG TABLET GT SCH (20:29)
[2019-06-28] MEDS: IPRATROPIUM BROMIDE 0.5 MG/2.5 ML NEBU NEB PRN (20:54)
[2019-06-28] MEDS: ALBUTEROL SULFATE 2.5 MG/3 ML NEBU NEB PRN (20:54)
[2019-06-28] MEDS ORDERED: MAGNESIUM HYDROXIDE 30 ML LIQUID UDC GT ONE (22:00)
[2019-06-29] VITALS (12 sets, daily range): BP systolic 124–153; BP diastolic 67–93
[2019-06-29] MEDS: IV NORMAL SALINE 250 ML IV PRN (03:14)
[2019-06-29] MEDS: MORPHINE SULFATE 2 MG/1 ML DISP.SYRIN IV PRN ×2 (03:15→22:37)
[2019-06-29 05:10] LABS: BASOPHILS % (AUTO) 0.1 % (0.0-2.0); HEMATOCRIT 24.6 % (36.7-47.1); HEMOGLOBIN 8.1 g/dL (12.5-16.3); LYMPHOCYTES # (AUTO) 0.3 K/uL (20.0-40.0); LYMPHOCYTES % (AUTO) 2.2 % (20.5-51.5); MEAN CORPUSCULAR HEMOGLOBIN 31.5 uug (23.8-33.4); MEAN CORPUSCULAR HGB CONC 33 g/dL (32.5-36.3); MEAN CORPUSCULAR VOLUME 96.3 fL (73.0-96.2); MONOCYTES # (AUTO) 0.8 K/uL (2.0-10.0); MONOCYTES % (AUTO) 5.6 % (0.0-11.0); NEUTROPHILS # (AUTO) 13.7 K/uL (1.8-8.9); NEUTROPHILS % (AUTO) 92.1 % (38.5-71.5); PLATELET COUNT (AUTO) 146 K/uL (152-348); RED BLOOD CELL COUNT(AUTO) 2.56 MIL/uL (4.06-5.63); WHITE BLOOD COUNT (AUTO) 14.9 K/uL (3.6-10.2)
[2019-06-29 05:12] LABS: CARBON DIOXIDE 28 mmol/L (21-32); CHLORIDE 108 mmol/L (98-107); CREATININE 3.4 mg/dL (0.6-1.3); GLUCOSE 229 mg/dL (74-106); MAGNESIUM 2.4 mg/dL (1.8-2.4); PHOSPHOROUS 6.5 mg/dL (2.5-4.9); POTASSIUM 5.1 mmol/L (3.5-5.1)
[2019-06-29 05:24] LABS: UREA NITROGEN, BLOOD 88 mg/dL (7-18)
[2019-06-29 07:06] LABS: HEPATITIS B SURFACE AB Non Reactive (.); HEPATITIS B SURFACE AG Negative (Negative)
[2019-06-29] MEDS: SEVELAMER CARBONATE 800 MG TABLET PO SCH ×3 (08:00→18:00)
[2019-06-29] MEDS: SIMETHICONE 80 MG TAB.CHEW GT SCH ×4 (08:43→20:31)
[2019-06-29] MEDS: FINASTERIDE 5 MG TABLET GT SCH (08:43)
[2019-06-29] MEDS: AMIODARONE HCL 200 MG TABLET GT SCH (08:44)
[2019-06-29] MEDS: AMLODIPINE 5 MG TABLET PO SCH (08:44)
[2019-06-29] MEDS: methylPREDNISolone SOD SUCC 125 MG/2 ML VIAL IV SCH (08:45)
[2019-06-29] MEDS: METOPROLOL TARTRATE 50 MG TABLET PO SCH ×2 (08:45→20:33)
[2019-06-29] MEDS: PANTOPRAZOLE SODIUM 40 MG VIAL IV SCH (08:45)
[2019-06-29] MEDS: FERROUS SULFATE 300 MG/5 ML LIQUID UDC PO SCH ×2 (08:45→18:09)
[2019-06-29] MEDS: LINAGLIPTIN 5 MG TABLET GT SCH (08:45)
[2019-06-29] MEDS: MEROPENEM 500 MG in IV NORMAL SALINE 50 ML IV SCH ×2 (08:46→21:18)
[2019-06-29] MEDS ORDERED: LEVOTHYROXINE SODIUM 100 MCG VIAL IV ONE (11:00)
[2019-06-29] MEDS: ONDANSETRON 4 MG/2 ML VIAL IV PRN (11:02)
[2019-06-29] MEDS: ALBUTEROL SULFATE 2.5 MG/3 ML NEBU NEB PRN ×2 (11:18→21:15)
[2019-06-29] MEDS: IPRATROPIUM BROMIDE 0.5 MG/2.5 ML NEBU NEB PRN ×2 (11:18→21:15)
[2019-06-29] MEDS ORDERED: FLUCONAZOLE 100 MG TABLET PO SCH (20:30)
[2019-06-29] MEDS: MELATONIN 3 MG TABLET GT SCH (20:31)
[2019-06-29] MEDS: TAMSULOSIN HCL 0.4 MG CAP.SR.24H XX SCH (20:32)
[2019-06-29] MEDS: MICAFUNGIN SODIUM 100 MG in IV NORMAL SALINE 100 ML IV SCH (21:16)
[2019-06-29] MEDS: HYDROMORPHONE 1 MG/1 ML DISP.SYRIN IV PRN (23:44)
[2019-06-30] VITALS: BP 133/70
[2019-06-30 04:00] VITALS: BP 140/83
[2019-06-30 07:02] LABS: CARBON DIOXIDE 26 mmol/L (21-32); CHLORIDE 106 mmol/L (98-107); CREATININE 2.8 mg/dL (0.6-1.3); GLUCOSE 186 mg/dL (74-106); MAGNESIUM 2.6 mg/dL (1.8-2.4); PHOSPHOROUS 5.1 mg/dL (2.5-4.9); POTASSIUM 4.5 mmol/L (3.5-5.1); UREA NITROGEN, BLOOD 73 mg/dL (7-18)
[2019-06-30 07:09] LABS: BASOPHILS % (AUTO) 0.2 % (0.0-2.0); LYMPHOCYTES # (AUTO) 0.3 K/uL (20.0-40.0); LYMPHOCYTES % (AUTO) 1.8 % (20.5-51.5); MEAN CORPUSCULAR HGB CONC 32 g/dL (32.5-36.3); MEAN CORPUSCULAR VOLUME 98.7 fL (73.0-96.2); MONOCYTES # (AUTO) 0.7 K/uL (2.0-10.0); MONOCYTES % (AUTO) 3.9 % (0.0-11.0); NEUTROPHILS # (AUTO) 15.6 K/uL (1.8-8.9); NEUTROPHILS % (AUTO) 94.1 % (38.5-71.5); PLATELET COUNT (AUTO) 166 K/uL (152-348); RED BLOOD CELL COUNT(AUTO) 2.76 MIL/uL (4.06-5.63); WHITE BLOOD COUNT (AUTO) 16.6 K/uL (3.6-10.2)
[2019-06-30 07:21] LABS: HEMATOCRIT 27.2 % (36.7-47.1); HEMOGLOBIN 8.8 g/dL (12.5-16.3)
[2019-06-30] MEDS: SEVELAMER CARBONATE 800 MG TABLET PO SCH ×2 (08:00→12:00)
[2019-06-30] MEDS: FINASTERIDE 5 MG TABLET GT SCH (09:00)
[2019-06-30] MEDS: methylPREDNISolone SOD SUCC 125 MG/2 ML VIAL IV SCH (09:00)
[2019-06-30] MEDS: PANTOPRAZOLE SODIUM 40 MG VIAL IV SCH (09:00)
[2019-06-30] MEDS: SIMETHICONE 80 MG TAB.CHEW GT SCH ×4 (09:00→21:05)
[2019-06-30] MEDS: FERROUS SULFATE 300 MG/5 ML LIQUID UDC PO SCH ×2 (09:00→17:00)
[2019-06-30] MEDS: LINAGLIPTIN 5 MG TABLET GT SCH (09:00)
[2019-06-30] MEDS: AMIODARONE HCL 200 MG TABLET GT SCH (09:29)
[2019-06-30] MEDS: AMLODIPINE 5 MG TABLET PO SCH (09:30)
[2019-06-30] MEDS: MEROPENEM 500 MG in IV NORMAL SALINE 50 ML IV SCH ×3 (09:30→21:15)
[2019-06-30] MEDS: METOPROLOL TARTRATE 50 MG TABLET PO SCH ×2 (09:30→21:06)
[2019-06-30] MEDS ORDERED: DIATR MEGLU/DIATRIZOATE SODIUM 30 ML SOLUTION PO ONE (10:51)
[2019-06-30 11:57] VITALS: BP 114/88
[2019-06-30] MEDS ORDERED: LEVOTHYROXINE SODIUM 100 MCG VIAL IV ONE (12:00)
[2019-06-30] MEDS: IPRATROPIUM BROMIDE 0.5 MG/2.5 ML NEBU NEB PRN (15:00)
[2019-06-30] MEDS: ALBUTEROL SULFATE 2.5 MG/3 ML NEBU NEB PRN (15:00)
[2019-06-30 15:35] VITALS: BP 135/67
[2019-06-30] MEDS ORDERED: VITAL AF 1.2 1,000 ML LIQUID GT PRN (18:00)
[2019-06-30 20:00] VITALS: BP 131/75
[2019-06-30] MEDS: MORPHINE SULFATE 2 MG/1 ML DISP.SYRIN IV PRN (20:33)
[2019-06-30] MEDS: MELATONIN 3 MG TABLET GT SCH (21:05)
[2019-06-30] MEDS: SEVELAMER CARBONATE 800 MG POWD.PACK GT SCH (21:06)
[2019-06-30] MEDS: TAMSULOSIN HCL 0.4 MG CAP.SR.24H XX SCH (21:06)
[2019-06-30] MEDS: MICAFUNGIN SODIUM 100 MG in IV NORMAL SALINE 100 ML IV SCH (21:14)
[2019-06-30] MEDS: HYDROMORPHONE 1 MG/1 ML DISP.SYRIN IV PRN (23:22)
[2019-07-01] VITALS: BP 128/58
[2019-07-01] MEDS: MORPHINE SULFATE 2 MG/1 ML DISP.SYRIN IV PRN (03:29)
[2019-07-01 04:00] VITALS: BP 122/63
[2019-07-01] MEDS: IV NORMAL SALINE 250 ML IV PRN (04:36)
[2019-07-01] MEDS ORDERED: LEVOTHYROXINE SODIUM 50 MCG TABLET GT SCH (07:00)
[2019-07-01 07:39] LABS: BASOPHILS % (AUTO) 0.3 % (0.0-2.0); HEMATOCRIT 27.3 % (36.7-47.1); HEMOGLOBIN 8.8 g/dL (12.5-16.3); LYMPHOCYTES # (AUTO) 0.3 K/uL (20.0-40.0); LYMPHOCYTES % (AUTO) 1.6 % (20.5-51.5); MEAN CORPUSCULAR HEMOGLOBIN 32.3 uug (23.8-33.4); MEAN CORPUSCULAR HGB CONC 32 g/dL (32.5-36.3); MONOCYTES # (AUTO) 0.4 K/uL (2.0-10.0); MONOCYTES % (AUTO) 2.2 % (0.0-11.0); NEUTROPHILS % (AUTO) 95.9 % (38.5-71.5); PLATELET COUNT (AUTO) 149 K/uL (152-348); RED BLOOD CELL COUNT(AUTO) 2.72 MIL/uL (4.06-5.63); WHITE BLOOD COUNT (AUTO) 17.7 K/uL (3.6-10.2)
[2019-07-01 08:32] LABS: CARBON DIOXIDE 23 mmol/L (21-32); CHLORIDE 109 mmol/L (98-107); CREATININE 3.1 mg/dL (0.6-1.3); GLUCOSE 244 mg/dL (74-106); MAGNESIUM 2.7 mg/dL (1.8-2.4); POTASSIUM 4.7 mmol/L (3.5-5.1)
[2019-07-01 08:34] LABS: UREA NITROGEN, BLOOD 82 mg/dL (7-18)
[2019-07-01] MEDS: SIMETHICONE 80 MG TAB.CHEW GT SCH ×3 (09:00→17:00)
[2019-07-01] MEDS: PANTOPRAZOLE SODIUM 40 MG VIAL IV SCH (09:46)
[2019-07-01] MEDS: methylPREDNISolone SOD SUCC 125 MG/2 ML VIAL IV SCH (09:46)
[2019-07-01] MEDS: FERROUS SULFATE 300 MG/5 ML LIQUID UDC PO SCH ×2 (09:46→17:00)
[2019-07-01] MEDS: AMLODIPINE 5 MG TABLET PO SCH (09:47)
[2019-07-01] MEDS: AMIODARONE HCL 200 MG TABLET GT SCH (09:48)
[2019-07-01] MEDS: FINASTERIDE 5 MG TABLET GT SCH (09:53)
[2019-07-01] MEDS: METOPROLOL TARTRATE 50 MG TABLET PO SCH (09:54)
[2019-07-01] MEDS: LINAGLIPTIN 5 MG TABLET GT SCH (09:54)
[2019-07-01] MEDS: SEVELAMER CARBONATE 800 MG POWD.PACK GT SCH ×3 (09:55→17:00)
[2019-07-01] MEDS: MEROPENEM 500 MG in IV NORMAL SALINE 50 ML IV SCH (09:56)
[2019-07-01] MEDS: HYDROMORPHONE 1 MG/1 ML DISP.SYRIN IV PRN (10:40)
[2019-07-01 12:13] VITALS: BP 109/54
[2019-07-01 15:26] VITALS: BP 136/60
[2019-07-01] MEDS ORDERED: EPINEPHRINE 1:10,000 1 MG/10 ML DISP.SYRIN IV ONE ×2 (16:25→18:31)
[2019-07-01] MEDS ORDERED: CALCIUM CHLORIDE 1 GM/10 ML DISP.SYRIN IV ONE ×2 (16:27→18:31)
[2019-07-01] MEDS ORDERED: ETOMIDATE 20 MG/10 ML VIAL IV ONE (16:28)
[2019-07-01] MEDS ORDERED: SODIUM BICARBONATE 8.4% 50 MEQ/50 ML DISP.SYRIN IV ONE ×2 (16:28→18:31)
[2019-07-01] MEDS ORDERED: PROPOFOL 100 ML IV PRN (16:45)
[2019-07-01 17:02] LABS: ABG HCO3 21.4 mmol/L; ABG PCO2 45.7 mmHg (35.0-45.0); ABG PH 7.288 (7.350-7.450); ABG PO2 86.9 mmHg (75.0-100.0); ABG SITE RIGHT RADIAL; ABG TOTAL HEMOGLOBIN 9.7 G/dL (13.5-18.0); COHb 1.5 % (0.5-1.5); MetHb 0.2 % (0.0-1.5); O2Hb 93.1 % (94.0-97.0); VENT MODE VENT - A/C; VT, ABG 500 mL
[2019-07-01 18:23] LABS: BASOPHILS % (AUTO) 0.1 % (0.0-2.0); EOSINOPHILS % (AUTO) 0.1 % (0.0-7.0); HEMATOCRIT 30.3 % (36.7-47.1); HEMOGLOBIN 9.4 g/dL (12.5-16.3); LYMPHOCYTES # (AUTO) 1.8 K/uL (20.0-40.0); LYMPHOCYTES % (AUTO) 8.7 % (20.5-51.5); MEAN CORPUSCULAR HGB CONC 31 g/dL (32.5-36.3); MEAN CORPUSCULAR VOLUME 102.9 fL (73.0-96.2); MONOCYTES # (AUTO) 0.2 K/uL (2.0-10.0); MONOCYTES % (AUTO) 0.9 % (0.0-11.0); NEUTROPHILS # (AUTO) 18.2 K/uL (1.8-8.9); NEUTROPHILS % (AUTO) 90.2 % (38.5-71.5); PLATELET COUNT (AUTO) 118 K/uL (152-348); RED BLOOD CELL COUNT(AUTO) 2.94 MIL/uL (4.06-5.63); WHITE BLOOD COUNT (AUTO) 20.2 K/uL (3.6-10.2)
[2019-07-01 18:25] VITALS: BP 75/43
[2019-07-01 18:30] LABS: CARBON DIOXIDE 25 mmol/L (21-32); CHLORIDE 109 mmol/L (98-107); CREATININE 3.3 mg/dL (0.6-1.3); GLUCOSE 269 mg/dL (74-106); PHOSPHOROUS 7.3 mg/dL (2.5-4.9)
[2019-07-01] MEDS ORDERED: EPINEPHRINE AMP 1 MG in IV DEXTROSE 5% 250 ML IV PRN (18:30)
[2019-07-01 18:31] LABS: POTASSIUM 5.3 mmol/L (3.5-5.1); UREA NITROGEN, BLOOD 91 mg/dL (7-18)
== END 2019-07-01 22:52 | disposition expired | DRG 871 ==
LOC: ER 19:11 → TELE3 06-24 01:59 → TELE-TD3 06-24 21:10 → CCU 06-26 08:30 → TELE3 06-29 10:18 → CCU 07-01 17:53
PROVIDERS: ADMIT Nurse Practitioner Acute Care; ATTEND Internal Medicine
PROC: 05HB33Z Insertion of Infusion Device into Right Basilic Vein, Percutaneous Approach (ICD-10-PCS; 2019-06-25)
PROC: 30233N1 Transfusion of Nonautologous Red Blood Cells into Peripheral Vein, Percutaneous Approach (ICD-10-PCS; principal; 2019-06-26)
PROC: 05HM33Z Insertion of Infusion Device into Right Internal Jugular Vein, Percutaneous Approach (ICD-10-PCS; 2019-06-27)
PROC: B543ZZA Ultrasonography of Right Jugular Veins, Guidance (ICD-10-PCS; 2019-06-27)
PROC: 5A1D70Z Performance of Urinary Filtration, Intermittent, Less than 6 Hours Per Day (ICD-10-PCS; 2019-06-27)
PROC: 05HA33Z Insertion of Infusion Device into Left Brachial Vein, Percutaneous Approach (ICD-10-PCS; 2019-06-30)
PROC: 5A1935Z Respiratory Ventilation, Less than 24 Consecutive Hours (ICD-10-PCS; 2019-07-01)
PROC: 5A12012 Performance of Cardiac Output, Single, Manual (ICD-10-PCS; 2019-07-01)
PROC: 0BH17EZ Insertion of Endotracheal Airway into Trachea, Via Natural or Artificial Opening (ICD-10-PCS; 2019-07-01)
DX: A41.9 Sepsis, unspecified organism (principal); J18.9 Pneumonia, unspecified organism; E43 Unspecified severe protein-calorie malnutrition; L89.153 Pressure ulcer of sacral region, stage 3; I21.A1 Myocardial infarction type 2; G92 Toxic encephalopathy; J96.21 Acute and chronic respiratory failure with hypoxia; Z66 Do not resuscitate; N00.7 Acute nephritic syndrome with diffuse crescentic glomerulonephritis; K25.4 Chronic or unspecified gastric ulcer with hemorrhage; I50.21 Acute systolic (congestive) heart failure; B37.1 Pulmonary candidiasis; N39.0 Urinary tract infection, site not specified; N17.9 Acute kidney failure, unspecified; D68.59 Other primary thrombophilia; D62 Acute posthemorrhagic anemia; I13.2 Hypertensive heart and chronic kidney disease with heart failure and with stage 5 chronic kidney disease, or end stage renal disease; R65.20 Severe sepsis without septic shock; K62.89 Other specified diseases of anus and rectum; I25.10 Atherosclerotic heart disease of native coronary artery without angina pectoris; Z95.1 Presence of aortocoronary bypass graft; K21.9 Gastro-esophageal reflux disease without esophagitis; I48.0 Paroxysmal atrial fibrillation; E03.9 Hypothyroidism, unspecified; E78.5 Hyperlipidemia, unspecified; E87.5 Hyperkalemia; I46.9 Cardiac arrest, cause unspecified; K29.70 Gastritis, unspecified, without bleeding; J84.10 Pulmonary fibrosis, unspecified; Z96.641 Presence of right artificial hip joint; R13.10 Dysphagia, unspecified; N40.0 Benign prostatic hyperplasia without lower urinary tract symptoms; M81.0 Age-related osteoporosis without current pathological fracture; M19.90 Unspecified osteoarthritis, unspecified site; M06.9 Rheumatoid arthritis, unspecified; K57.30 Diverticulosis of large intestine without perforation or abscess without bleeding; D63.8 Anemia in other chronic diseases classified elsewhere; E11.51 Type 2 diabetes mellitus with diabetic peripheral angiopathy without gangrene; E11.22 Type 2 diabetes mellitus with diabetic chronic kidney disease; Z74.09 Other reduced mobility; Z93.1 Gastrostomy status; Z87.11 Personal history of peptic ulcer disease; Z87.01 Personal history of pneumonia (recurrent); Z90.49 Acquired absence of other specified parts of digestive tract; Z79.82 Long term (current) use of aspirin; Z90.3 Acquired absence of stomach [part of]; Z86.73 Personal history of transient ischemic attack (TIA), and cerebral infarction without residual deficits; Z79.899 Other long term (current) drug therapy; Z79.84 Long term (current) use of oral hypoglycemic drugs; Z87.81 Personal history of (healed) traumatic fracture
CPT/HCPCS: 36415; 36600; 70030-TC; 71045; 71250; 74018; 83520; 83690; 83735; 84100; 85025; 85730; 86256; 86706; 86850; 86900; 86901; 86920; 87040; 87070; 87086; 87340; 90937; 92950; 93005; 93307; 94002; 94640; 94664; A4663; C9113; G0378; J0171; J0282; J0360; J0696; J0885; J1170; J1644; J1940; J2060; J2185; J2248; J2270; J2405; J2930; J3370; J3490; J3590; J7040; J7050; J7060; P9016-BL; P9021; P9047; Q0162; Q9963